=== PATIENT | female | born 1955 | race African-American/Black ===

== ENCOUNTER 2018-07-06 06:53 | Inpatient (IN) | payer MEDICAID ==
[~2018-07-06] VITALS: Ht 167.6 cm; Wt 68.9 kg
[2018-07-06] VITALS (13 sets, daily range): BP systolic 109–185; BP diastolic 71–120
--- NOTE | 2018-07-06 07:28 | Emergency Room Report ---
History of Present Illness General Chief Complaint: Chest Pain Source: Patient Present Illness HPI Patient presents with chest pain and weakness. This been worsening over the last week. She denies taking any medications at this time. She's never had pain like this before or weakness like this. She can barely stand. She denies fevers and chills. There's no productive cough. There's no nausea vomiting or diarrhea. She's not moving her bowels as she's not been eating. She fell recently. She does smoke THC and drinks beer. Other drugs are denied. It's been a long time since she seen her doctor. She doesn't take any medications routinely. She took a Motrin for the chest pain and it didn't help much. Pain is rated 8/10. The patient fell several days ago and has a bruise on the right-hand side of her hip. She was able to weight-bear on this and she states that this is not the reason why she is weak. Cares for others, not feeling stress. No dysuria, rashes. Allergies: Coded Allergies: No Known Allergies (Unverified , 07/06/18) Patient History Past Medical History: see triage record Social History: Reports: alcohol use, drug use - thc; Denies: smoking Social History Narrative with her sister and mother. She cares for her autistic son Last Menstrual Period: na Now: No Reviewed Nursing Documentation: PMH: Agreed; PSxH: Agreed Nursing Documentation-PMH Past Medical History: No Stated History Review of Systems All Other Systems: negative except mentioned in HPI Physical Exam Vital Signs Date Time Temp Pulse Resp B/P (MAP) Pulse Ox O2 Delivery O2 Flow Rate FiO2 07/06/18 06:54 98.4 80 18 154/109 99 Room Air Sp02 EP Interpretation: reviewed, normal General Appearance: no apparent distress, GCS 15, other - slow moving and cold Head: normocephalic Eyes: bilateral eye normal inspection, bilateral eye PERRL ENT: moist mucus membranes Neck: supple, thyroid normal Respiratory: lungs clear, normal breath sounds Cardiovascular #1: regular rate, rhythm Cardiovascular #2: 2+ radial (R) Gastrointestinal: normal inspection, normal bowel sounds, non tender, no mass, non-distended Musculoskeletal: back normal, normal range of motion Neurologic: alert, oriented x3, DTRs symmetric, sensory intact, motor weakness - Diffuse, other - slow speech Psychiatric: depressed affect Skin: normal inspection, warm/dry Procedures Critical Care Time Critical Care Time Total Critical Care Time: 30 min bedside evaluation and treatment excludes procedures (EKG). Reason for critical care: NSTEMI, hyponatremia, renal failure, hypokalemia, hypothyroidism Possible complications: hypotension, hypertension, ID, shock, arrhythmias, metabolic acidosis, end organ damage, respiratory failure. Interventions: aspirin, 3% NS, K, hydrocortisone Course: Patient with weakness found to have NSTEMI. Aspirin given. Critical hyponatremia - 3% NS begun and monitored. Hypokalemia with replacement ordered. Hypothyroidism and hydrocortisone ordered. Discussed findings with family, admitting MD, critical care MD and renal MD. Consultations: nursing staff, EMS, family, admitting MD, critical care MD, renal MD Performed by: Dr. White Tolerated well condition = serious Medical Decision Making Diagnostic Impression: Primary Impression: Chest pain Qualified Codes: R07.9 - Chest pain, unspecified Additional Impressions: NSTEMI (non-ST elevated myocardial infarction) Hyponatremia Hypokalemia Hypothyroid Qualified Codes: E03.9 - Hypothyroidism, unspecified ER Course Patient presents with chest pain, hyperthermia or weakness. Differential is broad including sepsis, acute myocardial infarction, pulmonary embolus, hypothyroidism, electrolyte imbalance, occult infection, Wernicke's encephalopathy amongst others. Evaluation will be with EKG, chest x-ray, and labs. As non-focal, CT may not be indicated. The patient will be treated with gentle hydration and Tylenol. She'll also be given a dose of thiamine. EKG without injury. CXR clear. NSTEMI with + troponin. Hyponatremia critical. Low potassium. Renal failure. Hypothyroidism. + D dimer Clinically, doubt PE based on VS and exam. Not candidate for CTA (and not indicated). 3% NS begun. K replacement ordered. Hydrocortisone for hypothyroidism. Discussed IV thyroid replacement with pharmacy (IV synthroid available). ( Normal TSH suggests secondary cause.) Discussed with admitting MD, Critical Care MD and Renal MD. Labs added per latter. Discussed findings with family. Due to 3% NS, admitted ICU. Improved mentation. Laboratory Tests Test 07/06/18 07:30 07/06/18 09:20 07/06/18 11:15 07/06/18 15:15 White Blood Count 8.6 K/UL (4.8-10.8) Red Blood Count 5.80 M/UL (4.20-5.40) H Hemoglobin 15.3 G/DL (12.0-16.0) Hematocrit 44.6 % (37.0-47.0) Mean Corpuscular Volume 77 FL (80-99) L Mean Corpuscular Hemoglobin 26.3 PG (27.0-31.0) L Mean Corpuscular Hemoglobin Concent 34.2 G/DL (32.0-36.0) Red Cell Distribution Width 11.0 % (11.6-14.8) L Platelet Count 243 K/UL (150-450) Mean Platelet Volume 8.4 FL (6.5-10.1) Neutrophils (%) (Auto) 63.4 % (45.0-75.0) Lymphocytes (%) (Auto) 25.4 % (20.0-45.0) Monocytes (%) (Auto) 6.7 % (1.0-10.0) Eosinophils (%) (Auto) 2.7 % (0.0-3.0) Basophils (%) (Auto) 1.8 % (0.0-2.0) Erythrocyte Sedimentation Rate 14 MM/HR (0-30) Prothrombin Time 11.0 SEC (9.30-11.50) Prothrombin Time INR 1.0 (0.9-1.1) PTT 45 SEC (23-33) H D-Dimer 0.96 mg/L FEU (0.00-0.49) H Sodium Level 108 MMOL/L (136-145) *L 114 MMOL/L (136-145) *L 119 MMOL/L (136-145) *L Potassium Level 2.6 MMOL/L (3.5-5.1) *L 3.2 MMOL/L (3.5-5.1) L 4.0 MMOL/L (3.5-5.1) Chloride Level 71 MMOL/L (98-107) L 78 MMOL/L (98-107) L 81 MMOL/L (98-107) L Carbon Dioxide Level 24 MMOL/L (21-32) 20 MMOL/L (21-32) L 22 MMOL/L (21-32) Anion Gap 13 mmol/L (5-15) 16 mmol/L (5-15) H 15 mmol/L (5-15) Blood Urea Nitrogen 10 mg/dL (7-18) 8 mg/dL (7-18) 9 mg/dL (7-18) Creatinine 1.0 MG/DL (0.55-1.30) 0.7 MG/DL (0.55-1.30) 0.7 MG/DL (0.55-1.30) Estimate Glomerular Filtration Rate > 60 mL/min (>60) > 60 mL/min (>60) > 60 mL/min (>60) Glucose Level 65 MG/DL (74-106) L 52 MG/DL (74-106) L 117 MG/DL (74-106) H Lactic Acid Level 1.30 mmol/L (0.4-2.0) Uric Acid 5.1 MG/DL (2.6-7.2) Calcium Level 9.5 MG/DL (8.5-10.1) 8.9 MG/DL (8.5-10.1) 9.3 MG/DL (8.5-10.1) Magnesium Level 1.7 MG/DL (1.8-2.4) L Total Bilirubin 0.5 MG/DL (0.2-1.0) Aspartate Amino Transferase (AST) 41 U/L (15-37) H Alanine Aminotransferase (ALT) 23 U/L (12-78) Alkaline Phosphatase 75 U/L (46-116) Total Creatine Kinase 738 U/L (26-308) H Troponin I 0.064 ng/mL (0.000-0.056) 0.029 ng/mL (0.000-0.056) Pro-B-Type Natriuretic Peptide 62 pg/mL (0-125) Total Protein 8.0 G/DL (6.4-8.2) Albumin 4.1 G/DL (3.4-5.0) Globulin 3.9 g/dL Albumin/Globulin Ratio 1.1 (1.0-2.7) Lipase 92 U/L (73-393) Thyroid Stimulating Hormone (TSH) 0.567 uiU/mL (0.358-3.740) Free Thyroxine 0.51 NG/DL (0.76-1.46) L Free Triiodothyronine 1.0 pg/mL (2.3-4.2) L Serum Alcohol < 3 mg/dL Urine Color Pale yellow Urine Appearance Clear Urine pH 6.5 (4.5-8.0) Urine Specific [place] 1.005 (1.005-1.035) Urine Protein 1+ (NEGATIVE) H Urine Glucose (UA) Negative (NEGATIVE) Urine Ketones 3+ (NEGATIVE) H Urine Blood Negative (NEGATIVE) Urine Nitrite Negative (NEGATIVE) Urine Bilirubin Negative (NEGATIVE) Urine Urobilinogen Normal MG/DL (0.0-1.0) Urine Leukocyte Esterase Negative (NEGATIVE) Urine RBC 0 /HPF (0 - 2) Urine WBC 0 /HPF (0 - 2) Urine Squamous Epithelial Cells Occasional /LPF Urine Bacteria Occasional /HPF (NONE) Urine Osmolality 141 mOsm/kg (429-449) L Urine Random Sodium 29 mmol/L (20-110) Osmolality 225 mOsm/kg (297-317) L Urine Opiates Screen Negative (NEGATIVE) Urine Barbiturates Screen Negative (NEGATIVE) Phencyclidine (PCP) Screen Negative (NEGATIVE) Urine Amphetamines Screen Negative (NEGATIVE) Urine Benzodiazepines Screen Negative (NEGATIVE) Urine Cocaine Screen Negative (NEGATIVE) Urine Marijuana (THC) Screen Negative (NEGATIVE) Test 07/06/18 18:49 Sodium Level Pending Potassium Level Pending Chloride Level Pending Carbon Dioxide Level Pending Blood Urea Nitrogen Pending Creatinine Pending Estimate Glomerular Filtration Rate Pending Glucose Level Pending Calcium Level Pending Troponin I Pending EKG Diagnostic Results Rate: normal Rhythm: NSR ST Segments: no acute changes - First-degree AV block and ST inversions laterally Rhythm Strip Diag. Results EP Interpretation: yes Rhythm: NSR, no PVC's, no ectopy Chest X-Ray Diagnostic Results Chest X-Ray Diagnostic Results : Chest X-Ray Ordered: Yes # of Views/Limited/Complete: 1 View Indication: Other EP Interpretation: Yes Interpretation: no consolidation, no effusion, no pneumothorax Impression: No acute disease Electronically Signed by: Electronically signed by Shahab White MD Last Vital Signs Date Time Temp Pulse Resp B/P (MAP) Pulse Ox O2 Delivery O2 Flow Rate FiO2 07/06/18 18:00 85 13 151/93 (112) 100 07/06/18 16:00 98.0 07/06/18 16:00 Room Air Status: improved Disposition: ADMITTED INPATIENT Condition: Serious Shahab White MD Jul 06, 2018 07:28
--- NOTE | 2018-07-06 08:14 | Diagnostic Imaging Report ---
EXAM: XR Chest, 1 View CLINICAL HISTORY: Chest pain TECHNIQUE: Frontal view of the chest. COMPARISON: No relevant prior studies available. FINDINGS: Lungs: Unremarkable. No consolidation. Pleural space: Unremarkable. No pneumothorax. Heart: Unremarkable. No cardiomegaly. Mediastinum: Unremarkable. Bones/joints: Unremarkable. IMPRESSION: No acute cardiopulmonary process.
[2018-07-06 08:27] LABS: BASOPHILS % (AUTO) 1.8 % (0.0-2.0); EOSINOPHILS % (AUTO) 2.7 % (0.0-3.0); HEMATOCRIT 44.6 % (37.0-47.0); HEMOGLOBIN 15.3 G/DL (12.0-16.0); LYMPHOCYTES % (AUTO) 25.4 % (20.0-45.0); MEAN CORPUSCULAR VOLUME 77 FL (80-99); MONOCYTES % (AUTO) 6.7 % (1.0-10.0); NEUTROPHILS % (AUTO) 63.4 % (45.0-75.0); PLATELET COUNT 243 K/UL (150-450); WHITE BLOOD COUNT 8.6 K/UL (4.8-10.8)
[2018-07-06 08:31] LABS: ALANINE AMINOTRANSFERASE 23 U/L (12-78); ALBUMIN 4.1 G/DL (3.4-5.0); ALBUMIN/GLOBULIN RATIO 1.1 (1.0-2.7); ALKALINE PHOSPHATASE 75 U/L (46-116); ANION GAP 13 mmol/L (5-15); ASPARTATE AMINO TRANSFERASE 41 U/L (15-37); BILIRUBIN,TOTAL 0.5 MG/DL (0.2-1.0); BLOOD UREA NITROGEN 10 mg/dL (7-18); CALCIUM 9.5 MG/DL (8.5-10.1); CARBON DIOXIDE 24 MMOL/L (21-32); CHLORIDE 71 MMOL/L (98-107); CREATINE KINASE 738 U/L (26-308)
[2018-07-06 09:03] LABS: POTASSIUM 2.6 MMOL/L (3.5-5.1); SODIUM 108 MMOL/L (136-145)
[2018-07-06] MEDS ORDERED: NaCl 3% 500ml 250 ML IV ONE (09:15)
[2018-07-06] MEDS ORDERED: Hydrocortisone 100mg Inj IV ONE (09:30)
[2018-07-06 09:39] LABS: APPEARANCE,URINE CLEAR; BILIRUBIN, URINE NEGATIVE (NEGATIVE); COLOR,URINE PALE YELLOW; GLUCOSE, URINE (UA) NEGATIVE (NEGATIVE); KETONES,URINE 3+ (NEGATIVE); LEUKOCYTE ESTERASE ,URINE NEGATIVE (NEGATIVE); NITRITE,URINE NEGATIVE (NEGATIVE); PH,URINE 6.5 (4.5-8.0); PROTEIN,URINE 1+ (NEGATIVE); UROBILINOGEN,URINE NORMAL MG/DL (0.0-1.0)
[2018-07-06 12:02] LABS: ANION GAP 16 mmol/L (5-15); BLOOD UREA NITROGEN 8 mg/dL (7-18); CALCIUM 8.9 MG/DL (8.5-10.1); CARBON DIOXIDE 20 MMOL/L (21-32); CHLORIDE 78 MMOL/L (98-107); CREATININE 0.7 MG/DL (0.55-1.30); POTASSIUM 3.2 MMOL/L (3.5-5.1)
--- NOTE | 2018-07-06 12:05 | Cardiac Electrophysiology PN ---
Subjective Subjective [id number] Objective Last 24 Hour Vital Signs Date Time Temp Pulse Resp B/P (MAP) Pulse Ox O2 Delivery O2 Flow Rate FiO2 07/06/18 10:50 98.4 70 18 154/86 99 Room Air 07/06/18 10:00 98.4 70 18 154/86 99 Room Air 07/06/18 07:37 98.4 86 18 154/109 99 Room Air 07/06/18 06:54 98.4 80 18 154/109 99 Room Air Laboratory Tests Test 07/06/18 07:30 07/06/18 09:20 07/06/18 11:15 White Blood Count 8.6 K/UL (4.8-10.8) Red Blood Count 5.80 M/UL (4.20-5.40) H Hemoglobin 15.3 G/DL (12.0-16.0) Hematocrit 44.6 % (37.0-47.0) Mean Corpuscular Volume 77 FL (80-99) L Mean Corpuscular Hemoglobin 26.3 PG (27.0-31.0) L Mean Corpuscular Hemoglobin Concent 34.2 G/DL (32.0-36.0) Red Cell Distribution Width 11.0 % (11.6-14.8) L Platelet Count 243 K/UL (150-450) Mean Platelet Volume 8.4 FL (6.5-10.1) Neutrophils (%) (Auto) 63.4 % (45.0-75.0) Lymphocytes (%) (Auto) 25.4 % (20.0-45.0) Monocytes (%) (Auto) 6.7 % (1.0-10.0) Eosinophils (%) (Auto) 2.7 % (0.0-3.0) Basophils (%) (Auto) 1.8 % (0.0-2.0) Erythrocyte Sedimentation Rate 14 MM/HR (0-30) Prothrombin Time 11.0 SEC (9.30-11.50) Prothromb Time International Ratio 1.0 (0.9-1.1) Activated Partial Thromboplast Time 45 SEC (23-33) H D-Dimer 0.96 mg/L FEU (0.00-0.49) H Sodium Level 108 MMOL/L (136-145) *L Pending Potassium Level 2.6 MMOL/L (3.5-5.1) *L Pending Chloride Level 71 MMOL/L (98-107) L Pending Carbon Dioxide Level 24 MMOL/L (21-32) Pending Anion Gap 13 mmol/L (5-15) Blood Urea Nitrogen 10 mg/dL (7-18) Pending Creatinine 1.0 MG/DL (0.55-1.30) Pending Estimat Glomerular Filtration Rate > 60 mL/min (>60) Pending Glucose Level 65 MG/DL (74-106) L Pending Lactic Acid Level 1.30 mmol/L (0.4-2.0) Uric Acid 5.1 MG/DL (2.6-7.2) Calcium Level 9.5 MG/DL (8.5-10.1) Pending Magnesium Level 1.7 MG/DL (1.8-2.4) L Total Bilirubin 0.5 MG/DL (0.2-1.0) Aspartate Amino Transf (AST/SGOT) 41 U/L (15-37) H Alanine Aminotransferase (ALT/SGPT) 23 U/L (12-78) Alkaline Phosphatase 75 U/L (46-116) Total Creatine Kinase 738 U/L (26-308) H Troponin I 0.064 ng/mL (0.000-0.056) Pro-B-Type Natriuretic Peptide 62 pg/mL (0-125) Total Protein 8.0 G/DL (6.4-8.2) Albumin 4.1 G/DL (3.4-5.0) Globulin 3.9 g/dL Albumin/Globulin Ratio 1.1 (1.0-2.7) Lipase 92 U/L (73-393) Thyroid Stimulating Hormone (TSH) 0.567 uiU/mL (0.358-3.740) Free Thyroxine 0.51 NG/DL (0.76-1.46) L Free Triiodothyronine 1.0 pg/mL (2.3-4.2) L Serum Alcohol < 3 mg/dL Urine Color Pale yellow Urine Appearance Clear Urine pH 6.5 (4.5-8.0) Urine Specific [place] 1.005 (1.005-1.035) Urine Protein 1+ (NEGATIVE) H Urine Glucose (UA) Negative (NEGATIVE) Urine Ketones 3+ (NEGATIVE) H Urine Blood Negative (NEGATIVE) Urine Nitrite Negative (NEGATIVE) Urine Bilirubin Negative (NEGATIVE) Urine Urobilinogen Normal MG/DL (0.0-1.0) Urine Leukocyte Esterase Negative (NEGATIVE) Urine RBC 0 /HPF (0 - 2) Urine WBC 0 /HPF (0 - 2) Urine Squamous Epithelial Cells Occasional /LPF Urine Bacteria Occasional /HPF (NONE) Urine Osmolality 141 mOsm/kg (429-449) L Urine Random Sodium 29 mmol/L (20-110) Osmolality 225 mOsm/kg (297-317) L Urine Opiates Screen Negative (NEGATIVE) Urine Barbiturates Screen Negative (NEGATIVE) Phencyclidine (PCP) Screen Negative (NEGATIVE) Urine Amphetamines Screen Negative (NEGATIVE) Urine Benzodiazepines Screen Negative (NEGATIVE) Urine Cocaine Screen Negative (NEGATIVE) Urine Marijuana (THC) Screen Negative (NEGATIVE) Geovanni Navas MD Jul 06, 2018 12:05
[2018-07-06 12:08] LABS: SODIUM 114 MMOL/L (136-145)
--- NOTE | 2018-07-06 12:40 | Consultation ---
Consult Note Consult Note Patient presents with chest pain and weakness. This been worsening over the last week. She denies taking any medications at this time. She's never had pain like this before or weakness like this. She can barely stand. She denies fevers and chills. There's no productive cough. There's no nausea vomiting or diarrhea. She's not moving her bowels as she's not been eating. She fell recently. She does smoke THC and drinks beer. Other drugs are denied. It's been a long time since she seen her doctor. She doesn't take any medications routinely. She took a Motrin for the chest pain and it didn't help much. Pain is rated 8/10. The patient fell several days ago and has a bruise on the right-hand side of her hip. She is able to weight-bear on this and she states that this is not the reason why she is weak. Allergies: Coded Allergies: No Known Allergies (Unverified , 07/06/18) interviewed examined data reviewed Assessment/Plan Severe Hyponatremia : ? Depletional ? SIADH HypoKalemia Low MCV elevated troponin h/o HypoThyroidism higgins 3% Saline K IV Mag IV Nitro ,asa, betablocker per orders Hesham Leonard MD Jul 06, 2018 12:40
[2018-07-06] MEDS ORDERED: NaCl 3% 500ml 500 ML IV ONE (13:30)
--- NOTE | 2018-07-06 13:30 | History and Physical ---
History of Present Illness General Date patient seen: Jul 06, 2018 Time patient seen: 12:00 Reason for Hospitalization: Chest Pain Present Illness HPI 62 year old woman with no known medical history, does not take any medications nor follow up with physician. Denies smoking cigarettes by uses cannabis and drinks alcohol. She presented to the ED with general weakness, malaise, fall. No chest pain, palpitations, syncope. In ED she was noted to be severely hyponatremic with sodium 105 along with hypokalemia of 2.6. She was started on hypertonic saline and referred for admission. Allergies: Coded Allergies: No Known Allergies (Unverified , 07/06/18) Patient History Limited by: medical condition History Provided By: Patient, EMS Healthcare decision maker Resuscitation status Advanced Directive on File Family History Family History: Patient reports no known family medical history. Social History Social History: (1) Cannabis abuse Review of Systems Constitutional: Denies: chills, fever Eye: Denies: eye pain, blurred vision ENT: Denies: ear pain, ear discharge Respiratory: Denies: cough, shortness of breath Cardiovascular: Denies: chest pain, palpitations Gastrointestinal: Denies: abdominal pain, constipation Genitourinary: Denies: discharge, dysuria Musculoskeletal: Denies: back pain, joint pain Skin: Denies: rash, change in hair/nails Psychiatric: Denies: anxiety, depressed feelings Neurological: Denies: headache, numbness, paresthesia, seizure Endocrine: Denies: excessive sweating, flushing Hematologic/Lymphatic: Denies: anemia, blood clots Physical Exam General Appearance: no apparent distress, alert HEENT: normocephalic, atraumatic, anicteric Neck: normal alignment, supple, normal inspection Respiratory/Chest: lungs clear, normal breath sounds, no respiratory distress Cardiovascular/Chest: normal peripheral pulses, normal rate, regular rhythm, no gallop/murmur Abdomen: normal bowel sounds, non tender, soft Extremities: normal range of motion, non-tender Skin Exam: normal pigmentation, warm/dry Neurologic: senior cognos developer II-XII grossly normal, no motor/sensory deficits Last 24 Hour Vital Signs Date Time Temp Pulse Resp B/P (MAP) Pulse Ox O2 Delivery O2 Flow Rate FiO2 07/06/18 10:50 98.4 70 18 154/86 99 Room Air 07/06/18 10:00 98.4 70 18 154/86 99 Room Air 07/06/18 07:37 98.4 86 18 154/109 99 Room Air 07/06/18 06:54 98.4 80 18 154/109 99 Room Air Laboratory Tests Test 07/06/18 07:30 07/06/18 09:20 07/06/18 11:15 White Blood Count 8.6 K/UL (4.8-10.8) Red Blood Count 5.80 M/UL (4.20-5.40) H Hemoglobin 15.3 G/DL (12.0-16.0) Hematocrit 44.6 % (37.0-47.0) Mean Corpuscular Volume 77 FL (80-99) L Mean Corpuscular Hemoglobin 26.3 PG (27.0-31.0) L Mean Corpuscular Hemoglobin Concent 34.2 G/DL (32.0-36.0) Red Cell Distribution Width 11.0 % (11.6-14.8) L Platelet Count 243 K/UL (150-450) Mean Platelet Volume 8.4 FL (6.5-10.1) Neutrophils (%) (Auto) 63.4 % (45.0-75.0) Lymphocytes (%) (Auto) 25.4 % (20.0-45.0) Monocytes (%) (Auto) 6.7 % (1.0-10.0) Eosinophils (%) (Auto) 2.7 % (0.0-3.0) Basophils (%) (Auto) 1.8 % (0.0-2.0) Erythrocyte Sedimentation Rate 14 MM/HR (0-30) Prothrombin Time 11.0 SEC (9.30-11.50) Prothromb Time International Ratio 1.0 (0.9-1.1) Activated Partial Thromboplast Time 45 SEC (23-33) H D-Dimer 0.96 mg/L FEU (0.00-0.49) H Sodium Level 108 MMOL/L (136-145) *L 114 MMOL/L (136-145) *L Potassium Level 2.6 MMOL/L (3.5-5.1) *L 3.2 MMOL/L (3.5-5.1) L Chloride Level 71 MMOL/L (98-107) L 78 MMOL/L (98-107) L Carbon Dioxide Level 24 MMOL/L (21-32) 20 MMOL/L (21-32) L Anion Gap 13 mmol/L (5-15) 16 mmol/L (5-15) H Blood Urea Nitrogen 10 mg/dL (7-18) 8 mg/dL (7-18) Creatinine 1.0 MG/DL (0.55-1.30) 0.7 MG/DL (0.55-1.30) Estimat Glomerular Filtration Rate > 60 mL/min (>60) > 60 mL/min (>60) Glucose Level 65 MG/DL (74-106) L 52 MG/DL (74-106) L Lactic Acid Level 1.30 mmol/L (0.4-2.0) Uric Acid 5.1 MG/DL (2.6-7.2) Calcium Level 9.5 MG/DL (8.5-10.1) 8.9 MG/DL (8.5-10.1) Magnesium Level 1.7 MG/DL (1.8-2.4) L Total Bilirubin 0.5 MG/DL (0.2-1.0) Aspartate Amino Transf (AST/SGOT) 41 U/L (15-37) H Alanine Aminotransferase (ALT/SGPT) 23 U/L (12-78) Alkaline Phosphatase 75 U/L (46-116) Total Creatine Kinase 738 U/L (26-308) H Troponin I 0.064 ng/mL (0.000-0.056) Pending Pro-B-Type Natriuretic Peptide 62 pg/mL (0-125) Total Protein 8.0 G/DL (6.4-8.2) Albumin 4.1 G/DL (3.4-5.0) Globulin 3.9 g/dL Albumin/Globulin Ratio 1.1 (1.0-2.7) Lipase 92 U/L (73-393) Thyroid Stimulating Hormone (TSH) 0.567 uiU/mL (0.358-3.740) Free Thyroxine 0.51 NG/DL (0.76-1.46) L Free Triiodothyronine 1.0 pg/mL (2.3-4.2) L Serum Alcohol < 3 mg/dL Urine Color Pale yellow Urine Appearance Clear Urine pH 6.5 (4.5-8.0) Urine Specific [place] 1.005 (1.005-1.035) Urine Protein 1+ (NEGATIVE) H Urine Glucose (UA) Negative (NEGATIVE) Urine Ketones 3+ (NEGATIVE) H Urine Blood Negative (NEGATIVE) Urine Nitrite Negative (NEGATIVE) Urine Bilirubin Negative (NEGATIVE) Urine Urobilinogen Normal MG/DL (0.0-1.0) Urine Leukocyte Esterase Negative (NEGATIVE) Urine RBC 0 /HPF (0 - 2) Urine WBC 0 /HPF (0 - 2) Urine Squamous Epithelial Cells Occasional /LPF Urine Bacteria Occasional /HPF (NONE) Urine Osmolality 141 mOsm/kg (429-449) L Urine Random Sodium 29 mmol/L (20-110) Osmolality 225 mOsm/kg (297-317) L Urine Opiates Screen Negative (NEGATIVE) Urine Barbiturates Screen Negative (NEGATIVE) Phencyclidine (PCP) Screen Negative (NEGATIVE) Urine Amphetamines Screen Negative (NEGATIVE) Urine Benzodiazepines Screen Negative (NEGATIVE) Urine Cocaine Screen Negative (NEGATIVE) Urine Marijuana (THC) Screen Negative (NEGATIVE) Height (Feet): 5 Height (Inches): 8.00 Weight (Pounds): 150 Medications Current Medications Medications (Trade) Dose Ordered Sig/[place] Route PRN Reason Start Time Stop Time Status Last Admin Dose Admin Aspirin (ASA) 162 mg DAILY ORAL 07/07/18 09:00 08/06/18 08:59 Dextrose (Dextrose 50%) 25 ml Q30M PRN IV Hypoglycemia 07/06/18 10:00 08/05/18 09:59 Dextrose (Dextrose 50%) 50 ml Q30M PRN IV Hypoglycemia 07/06/18 10:00 08/05/18 09:59 Famotidine (Pepcid) 20 mg BID ORAL 07/06/18 18:00 08/05/18 17:59 Magnesium Sulfate 100 ml @ 100 mls/hr Q1H IVPB 07/06/18 14:00 07/06/18 17:59 Metoprolol Tartrate (Lopressor) 25 mg Q12HR ORAL 07/06/18 21:00 08/05/18 20:59 Nitroglycerin (Ntg) 1 patch DAILY TDERMAL 07/06/18 13:00 08/05/18 12:59 Potassium Chloride 100 ml @ 100 mls/hr Q1HR IVPB 07/06/18 14:00 07/06/18 19:59 Sodium Chloride 250 ml @ 30 mls/hr ONCE ONCE IV 07/06/18 09:15 07/06/18 17:34 07/06/18 09:52 Sodium Chloride 500 ml @ 30 mls/hr ONCE ONCE IV 07/06/18 13:30 07/07/18 06:09 Assessment/Plan Assessment/Plan Severe life threatening hyponatremia of unclear etiology, admit to ICU for hypertonic saline infusion and q4h BMP. Seizure precautions, fall precautions.Spoke with Dr. Leonard who will help manage electrolytes. Hypokalemia, replaced with IV and oral KCl, continue to monitor potassium level. Elevated troponin without EKG changes, doubt ACS, suspect demand ischemia. Spoke with Cardiology who evaluated the patient. Continue ASA and metoprolol. History of cannabis and alcohol use, counseling given on the adverse effects of substance abuse. Abnormal T4 with normal TSH, will not supplemental with levothyroxine for now, continue to monitor for bradycardia, hypothermia etc Full Code VTE PPx heparin SC Patient will require a hospitalization crossing 2 midnights given the severe life threatening electrolyte abnormalities and the need for close monitoring of blood work multiple times per day. Terrance Rothman MD Jul 06, 2018 13:30
[2018-07-06] MEDS: Nitroglycerin Patch 0.4mg TDERMAL SCH (13:53)
[2018-07-06 15:57] LABS: ANION GAP 15 mmol/L (5-15); BLOOD UREA NITROGEN 9 mg/dL (7-18); CALCIUM 9.3 MG/DL (8.5-10.1); CARBON DIOXIDE 22 MMOL/L (21-32); CHLORIDE 81 MMOL/L (98-107); CREATININE 0.7 MG/DL (0.55-1.30)
[2018-07-06 16:16] LABS: SODIUM 119 MMOL/L (136-145)
--- NOTE | 2018-07-06 18:07 | Pulmonolgy Critical Care Note ---
Critical Care - Asmt/Plan Assessment/Plan: PULMONARY CRITICAL CARE HPI Patient presents with chest pain and weakness, episode syncope/fall, noted to have severe hyponatremia, hypothyroidism. Weakness has been worsening over the last week. She denies taking any medications at this time. She's never had pain like this before or weakness like this. She can barely stand. She denies fevers and chills. There's no productive cough. There's no nausea vomiting or diarrhea. She's not moving her bowels as she's not been eating. She fell recently. She does smoke THC and drinks beer. Other drugs are denied. It's been a long time since she seen her doctor. She doesn't take any medications routinely. She took a Motrin for the chest pain and it didn't help much. Pain is rated 8/10. The patient fell several days ago and has a bruise on the right-hand side of her hip. She is able to weight-bear on this and she states that this is not the reason why she is weak. Allergies: Coded Allergies: No Known Allergies (Unverified , 07/06/18) Patient History Past Medical History: see triage record Social History: Reports: smoking, alcohol use, drug use - thc Social History Narrative with her sisters Last Menstrual Period: na Now: No Reviewed Nursing Documentation: PMH: Agreed; PSxH: Agreed Nursing Documentation-PM Past Medical History: No Stated History Review of Systems All Other Systems: negative except mentioned in HPI Physical Exam Vital Signs noted Date Time Temp Pulse Resp B/P (MAP) Pulse Ox O2 Delivery O2 Flow Rate FiO2 07/06/18 06:54 98.4 80 18 154/109 99 Room Air Sp02 EP Interpretation: reviewed, normal General Appearance: no apparent distress, GCS 15, other - slow moving and cold Head: normocephalic Eyes: bilateral eye normal inspection, bilateral eye PERRL ENT: moist mucus membranes Neck: supple, thyroid normal Respiratory: lungs clear, normal breath sounds Cardiovascular #1: regular rate, rhythm Cardiovascular #2: 2+ radial (R) Gastrointestinal: normal inspection, normal bowel sounds, non tender, no mass, non-distended Musculoskeletal: back normal, normal range of motion Neurologic: alert, oriented x3, DTRs symmetric, sensory intact, motor weakness - Diffuse Psychiatric: depressed affect Skin: normal inspection, warm/dry Medical Decision Making Diagnostic Impression: Primary Impression: Chest pain, elevated troponin NSTEMII (non-ST elevated myocardial infarction) Hyponatremia Hypokalemia Hypothyroid Plan: Continue current management O2 PRN PPX IV fluids per Renal EKG Diagnostic Results Rate: normal Rhythm: NSR ST Segments: no acute changes - First-degree AV block and ST inversions laterally Rhythm Strip Diag. Results EP Interpretation: yes Rhythm: NSR, no PVC's, no ectopy Chest X-Ray Diagnostic Results Chest X-Ray Diagnostic Results : Chest X-Ray Ordered: Yes # of Views/Limited/Complete: 1 View Indication: Other EP Interpretation: Yes Interpretation: no consolidation, no effusion, no pneumothorax Impression: No acute disease Critical Care - Objective Last 24 Hour Vital Signs Date Time Temp Pulse Resp B/P (MAP) Pulse Ox O2 Delivery O2 Flow Rate FiO2 07/06/18 18:00 85 13 151/93 (112) 100 07/06/18 17:00 85 13 116/71 (86) 98 07/06/18 16:00 98.0 88 12 149/94 (112) 99 07/06/18 16:00 92 07/06/18 16:00 Room Air 07/06/18 15:00 82 14 109/87 (94) 97 07/06/18 14:15 Room Air 07/06/18 14:15 Room Air 07/06/18 14:00 76 12 150/104 (119) 99 07/06/18 13:53 166/102 07/06/18 13:00 97.6 71 11 131/74 (93) 97 07/06/18 10:50 98.4 70 18 154/86 99 Room Air 07/06/18 10:00 98.4 70 18 154/86 99 Room Air 07/06/18 07:37 98.4 86 18 154/109 99 Room Air 07/06/18 06:54 98.4 80 18 154/109 99 Room Air Critical Care - Subjective ROS Limited/Unobtainable: No Condition: stable EKG Rhythm: Sinus Rhythm Shahab Ling MD Jul 06, 2018 18:07
[2018-07-06 19:38] LABS: ANION GAP 11 mmol/L (5-15); BLOOD UREA NITROGEN 9 mg/dL (7-18); CALCIUM 9.7 MG/DL (8.5-10.1); CARBON DIOXIDE 21 MMOL/L (21-32); CHLORIDE 86 MMOL/L (98-107); CREATININE 0.8 MG/DL (0.55-1.30); POTASSIUM 4.1 MMOL/L (3.5-5.1)
[2018-07-06 19:52] LABS: SODIUM 118 MMOL/L (136-145)
[2018-07-06] MEDS: Metoprolol 25mg tab ORAL SCH (20:16)
[2018-07-06] MEDS: Heparin 5000 units/ml inj SUBQ SCH (20:17)
--- NOTE | 2018-07-06 22:00 | Consultation ---
DATE OF CONSULTATION: 07/06/2018 CARDIOLOGY CONSULTATION CONSULTING PHYSICIAN: Geovanni Navas M.D. REFERRING PHYSICIAN: Joann Bains M.D. REASON FOR CONSULTATION: Elevated troponin, abnormal electrocardiogram. HISTORY OF PRESENT ILLNESS: The patient is a 62-year-old lady, who presents to the emergency room complaining of generalized weakness, fever, and chest pain. The patient's blood pressure in the ER was 154/109, pulse of 80. The patient stated she had the feeling like that for the last week. Denies any prior medical history and does not take any medication at home. She could barely stand. The patient took Motrin for chest pain. The patient was found to have severe hyponatremia with sodium of 108 as well as severe hypokalemia with potassium of 2.6. Her troponin was mildly elevated at 0.064 also. REVIEW OF SYSTEMS: Negative other than what was mentioned in history of present illness. PAST MEDICAL HISTORY: Negative. FAMILY HISTORY: Noncontributory. SOCIAL HISTORY: Urine toxicology screen is negative. Denies smoking or drinking alcohol. PHYSICAL EXAMINATION: VITAL SIGNS: Blood pressure is 154/86, pulse is 80, respirations 18, and she is afebrile. HEAD AND NECK: Showed no JVD. LUNGS: Clear. CARDIOVASCULAR: Shows regular S1 and S2 with no gallop or murmur. ABDOMEN: Soft. EXTREMITIES: No pitting edema. DIAGNOSTIC DATA: EKG shows sinus rhythm, prolonged QT, first-degree AV block, and lateral T-wave inversion. LABORATORY DATA: White count of 8.6, hemoglobin 15.2, hematocrit 44.6, and platelet count of 243,000. Sodium 108, potassium 2.6, BUN of 10, creatinine 1, and glucose of 65. INR is 1. D-dimer is 0.96. Urine-tox is negative. ASSESSMENT AND PLAN: 1. [id number] myocardial infarction, abnormal EKG, elevated troponin, and chest pain. The patient currently is chest pain-free, however, with abnormal EKG, it could be due to profound hypokalemia, potassium 2.6. The patient also has severe hyponatremia. We will start the patient on aspirin, beta-saeid, and anticoagulation until we get further information. Repeat troponin and EKG as well as echocardiogram. 2. Severe hypokalemia. Potassium was replaced. Laboratories are repeated and pending. 3. Hypothyroidism. 4. Severe hyponatremia. The patient is on 3% saline. Thank you very much, Dr. Bains, for allowing me to participate in the care of this patient. Please do not hesitate to contact me for any questions regarding my evaluation. Geovanni Navas M.D. DR: Taz JOB#: [id number] CC:
[2018-07-07] VITALS (23 sets, daily range): BP systolic 121–163; BP diastolic 67–105
[2018-07-07 00:01] LABS: ANION GAP 12 mmol/L (5-15); BLOOD UREA NITROGEN 8 mg/dL (7-18); CALCIUM 9.3 MG/DL (8.5-10.1); CARBON DIOXIDE 21 MMOL/L (21-32); CHLORIDE 88 MMOL/L (98-107); CREATININE 0.8 MG/DL (0.55-1.30); POTASSIUM 4.3 MMOL/L (3.5-5.1); SODIUM 121 MMOL/L (136-145)
[2018-07-07 05:10] LABS: BASOPHILS % (AUTO) 0.4 % (0.0-2.0); EOSINOPHILS % (AUTO) 0.1 % (0.0-3.0); HEMATOCRIT 40.4 % (37.0-47.0); HEMOGLOBIN 13.9 G/DL (12.0-16.0); LYMPHOCYTES % (AUTO) 14.8 % (20.0-45.0); MEAN CORPUSCULAR VOLUME 78 FL (80-99); MONOCYTES % (AUTO) 3.6 % (1.0-10.0); NEUTROPHILS % (AUTO) 81.1 % (45.0-75.0); PLATELET COUNT 256 K/UL (150-450); RED BLOOD COUNT 5.21 M/UL (4.20-5.40); RED CELL DISTRIBUTION WIDTH 11.4 % (11.6-14.8); WHITE BLOOD COUNT 9.1 K/UL (4.8-10.8)
[2018-07-07 05:42] LABS: CREATINE KINASE 724 U/L (26-308); FERRITIN 544 NG/ML (8-388); GAMMA GLUTAMYL TRANSPEPTIDASE 42 U/L (5-85); PHOSPHORUS 2.5 MG/DL (2.5-4.9)
[2018-07-07 05:44] LABS: % IRON SATURATION 42 % (15-50); IRON 114 ug/dL (50-175); TOTAL IRON BINDING CAPACITY 273 ug/dL (250-450)
[2018-07-07 06:35] LABS: ALANINE AMINOTRANSFERASE 27 U/L (12-78); ALBUMIN 3.9 G/DL (3.4-5.0); ALKALINE PHOSPHATASE 78 U/L (46-116); ANION GAP 13 mmol/L (5-15); ASPARTATE AMINO TRANSFERASE 45 U/L (15-37); BILIRUBIN,TOTAL 0.4 MG/DL (0.2-1.0); BLOOD UREA NITROGEN 8 mg/dL (7-18); CALCIUM 9.5 MG/DL (8.5-10.1); CARBON DIOXIDE 20 MMOL/L (21-32); CHLORIDE 88 MMOL/L (98-107); CHOLESTEROL 274 MG/DL (< 200); CREATININE 0.9 MG/DL (0.55-1.30); HDL CHOLESTEROL 44 MG/DL (40-60); POTASSIUM 4.1 MMOL/L (3.5-5.1); SODIUM 121 MMOL/L (136-145); TRIGLYCERIDES 85 MG/DL (30-150)
[2018-07-07 07:40] LABS: ANION GAP 14 mmol/L (5-15); BLOOD UREA NITROGEN 7 mg/dL (7-18); CALCIUM 9.3 MG/DL (8.5-10.1); CARBON DIOXIDE 18 MMOL/L (21-32); CHLORIDE 88 MMOL/L (98-107); CREATININE 0.8 MG/DL (0.55-1.30)
[2018-07-07 07:42] LABS: SODIUM 119 MMOL/L (136-145)
[2018-07-07] MEDS: Aspirin Baby 81mg ORAL SCH (08:45)
[2018-07-07] MEDS: Nitroglycerin Patch 0.4mg TDERMAL SCH (08:45)
[2018-07-07] MEDS: Metoprolol 25mg tab ORAL SCH (08:45)
[2018-07-07] MEDS: Heparin 5000 units/ml inj SUBQ SCH ×2 (08:46→21:27)
[2018-07-07] MEDS ORDERED: NS 275ml ONE (10:48)
[2018-07-07] MEDS ORDERED: Tubing IV Secondary IV ONE (10:48)
[2018-07-07 11:58] LABS: ANION GAP 10 mmol/L (5-15); BLOOD UREA NITROGEN 7 mg/dL (7-18); CALCIUM 9.2 MG/DL (8.5-10.1); CARBON DIOXIDE 22 MMOL/L (21-32); CHLORIDE 88 MMOL/L (98-107); CREATININE 0.8 MG/DL (0.55-1.30); POTASSIUM 3.8 MMOL/L (3.5-5.1); SODIUM 120 MMOL/L (136-145)
[2018-07-07] MEDS ORDERED: Lisinopril 10mg tab ORAL SCH (12:45)
[2018-07-07] MEDS ORDERED: NaCl 3% 500ml 500 ML IV ONE (13:30)
--- NOTE | 2018-07-07 13:42 | Nephrology Progress Note ---
Assessment/Plan Problem List: (1) Hyponatremia (2) Hypothyroid (3) NSTEMI (non-ST elevated myocardial infarction) (4) Hypokalemia Assessment Severe Hyponatremia : ? Depletional ? SIADH HypoKalemia Low MCV elevated troponin h/o HypoThyroidism Plan higgins 3% Saline K IV Mag IV Nitro ,asa, betablocker per orders Subjective ROS Limited/Unobtainable: No Constitutional: Reports: other - stronger Objective Objective Last 24 Hour Vital Signs Date Time Temp Pulse Resp B/P (MAP) Pulse Ox O2 Delivery O2 Flow Rate FiO2 07/07/18 12:00 Room Air 07/07/18 12:00 74 16 151/93 (112) 99 07/07/18 11:00 75 16 145/105 (118) 99 07/07/18 10:00 73 15 162/86 (111) 100 07/07/18 09:23 83 07/07/18 09:00 93 23 148/104 (119) 100 07/07/18 08:45 177/103 07/07/18 08:45 88 177/103 07/07/18 08:00 Room Air 07/07/18 08:00 97.9 95 18 162/102 (122) 100 07/07/18 07:00 88 14 148/88 (108) 100 07/07/18 06:00 91 12 152/100 (117) 100 07/07/18 05:00 88 12 143/91 (108) 100 07/07/18 04:00 Room Air 07/07/18 04:00 98.8 92 16 144/97 (113) 100 07/07/18 04:00 95 07/07/18 03:00 95 16 163/100 (121) 100 07/07/18 02:00 89 13 128/83 (98) 99 07/07/18 01:00 88 13 143/89 (107) 99 07/07/18 00:00 99.1 90 14 149/96 (113) 100 07/07/18 00:00 Room Air 07/06/18 23:00 91 18 140/97 (111) 99 07/06/18 22:00 88 18 172/108 (129) 100 07/06/18 21:00 107 18 169/120 (136) 100 07/06/18 20:16 105 175/109 07/06/18 20:00 105 07/06/18 20:00 98.6 110 12 185/118 (140) 100 07/06/18 20:00 Room Air 07/06/18 19:20 Room Air 07/06/18 19:00 105 15 175/109 (131) 99 07/06/18 18:00 85 13 151/93 (112) 100 07/06/18 17:00 85 13 116/71 (86) 98 07/06/18 16:00 98.0 88 12 149/94 (112) 99 07/06/18 16:00 92 07/06/18 16:00 Room Air 07/06/18 15:00 82 14 109/87 (94) 97 07/06/18 14:15 Room Air 07/06/18 14:15 Room Air 07/06/18 14:00 76 12 150/104 (119) 99 07/06/18 13:53 166/102 Intake and Output 07/06/18 07/07/18 18:59 06:59 Intake Total 1720 ml 1300 ml Output Total 3800 ml 1650 ml Balance -2080 ml -350 ml Intake Oral 300 ml 1000 ml IV Total 1420 ml 300 ml Output Urine Total 3800 ml 1650 ml # Voids 1 Laboratory Tests 07/06/18 15:15: Sodium Level 119*L, Potassium Level 4.0, Chloride Level 81L, Carbon Dioxide Level 22, Anion Gap 15, Blood Urea Nitrogen 9, Creatinine 0.7, Estimat Glomerular Filtration Rate > 60, Glucose Level 117H, Calcium Level 9.3 07/06/18 18:49: Sodium Level 118*L, Potassium Level 4.1, Chloride Level 86L, Carbon Dioxide Level 21, Anion Gap 11, Blood Urea Nitrogen 9, Creatinine 0.8, Estimat Glomerular Filtration Rate > 60, Glucose Level 177H, Calcium Level 9.7, Troponin I 0.025 07/06/18 23:00: Sodium Level 121L, Potassium Level 4.3, Chloride Level 88L, Carbon Dioxide Level 21, Anion Gap 12, Blood Urea Nitrogen 8, Creatinine 0.8, Estimat Glomerular Filtration Rate > 60, Glucose Level 111H, Calcium Level 9.3 07/07/18 03:00: Troponin I 0.046 07/07/18 04:00: White Blood Count 9.1, Red Blood Count 5.21, Hemoglobin 13.9, Hematocrit 40.4, Mean Corpuscular Volume 78L, Mean Corpuscular Hemoglobin 26.7L, Mean Corpuscular Hemoglobin Concent 34.4, Red Cell Distribution Width 11.4L, Platelet Count 256, Mean Platelet Volume 7.4, Neutrophils (%) (Auto) 81.1H, Lymphocytes (%) (Auto) 14.8L, Monocytes (%) (Auto) 3.6, Eosinophils (%) (Auto) 0.1, Basophils (%) (Auto) 0.4, Sodium Level 121L, Potassium Level 4.1, Chloride Level 88L, Carbon Dioxide Level 20L, Anion Gap 13, Blood Urea Nitrogen 8, Creatinine 0.9, Estimat Glomerular Filtration Rate > 60, Glucose Level 84, Hemoglobin A1c 6.3H, Uric Acid 5.7, Calcium Level 9.5, Phosphorus Level 2.5, Magnesium Level 2.4, Iron Level 114, Total Iron Binding Capacity 273, Percent Iron Saturation 42, Unsaturated Iron Binding 159, Ferritin 544H, Total Bilirubin 0.4, Gamma Glutamyl Transpeptidase 42, Aspartate Amino Transf (AST/ SGOT) 45H, Alanine Aminotransferase (ALT/SGPT) 27, Alkaline Phosphatase 78, Total Creatine Kinase 724H, C-Reactive Protein, Quantitative 18.2H, Pro-B-Type Natriuretic Peptide 329H, Total Protein 7.7, Albumin 3.9, Globulin 3.8, Albumin/ Globulin Ratio 1.0, Triglycerides Level 85, Cholesterol Level 274H, LDL Cholesterol 209H, HDL Cholesterol 44, Cholesterol/HDL Ratio 6.2H, Vitamin B12 Level 1664H, Folate 18.9 07/07/18 07:00: Sodium Level 119*L, Potassium Level 4.0, Chloride Level 88L, Carbon Dioxide Level 18L, Anion Gap 14, Blood Urea Nitrogen 7, Creatinine 0.8, Estimat Glomerular Filtration Rate > 60, Glucose Level 84, Calcium Level 9.3 07/07/18 11:05: Sodium Level 120L, Potassium Level 3.8, Chloride Level 88L, Carbon Dioxide Level 22, Anion Gap 10, Blood Urea Nitrogen 7, Creatinine 0.8, Estimat Glomerular Filtration Rate > 60, Glucose Level 128H, Calcium Level 9.2 Height (Feet): 5 Height (Inches): 6.00 Weight (Pounds): 147 General Appearance: no apparent distress Cardiovascular: regular rhythm Respiratory/Chest: lungs clear Abdomen: soft Hesham Leonard MD Jul 07, 2018 13:42
[2018-07-07 15:51] LABS: ANION GAP 11 mmol/L (5-15); BLOOD UREA NITROGEN 7 mg/dL (7-18); CALCIUM 9.3 MG/DL (8.5-10.1); CARBON DIOXIDE 21 MMOL/L (21-32); CHLORIDE 88 MMOL/L (98-107); CREATININE 0.7 MG/DL (0.55-1.30); POTASSIUM 3.9 MMOL/L (3.5-5.1); SODIUM 120 MMOL/L (136-145)
--- NOTE | 2018-07-07 16:54 | General Progress Note ---
Assessment/Plan Problem List: (1) Hyponatremia ICD Codes: E87.1 - Hypo-osmolality and hyponatremia SNOMED: 23613226 Assessment/Plan Severe life threatening hyponatremia possibly related to excessive water consumption -Nephrology plans to continue hypertonic saline, will monitor in ICU and check BMP tonight Hypokalemia, improved -Continue to replace with KCl prn and monitor levels. Elevated troponin without EKG changes, demand ischemia from severe hyponatremia -Cardiology following History of cannabis and alcohol use, no evidence of withdrawal -Continue to monitor Abnormal T4 with normal TSH, -Continue to monitor for evidence of hypothyroidism Subjective Date patient seen: Jul 07, 2018 Time patient seen: 11:45 ROS Limited/Unobtainable: No Constitutional: Denies: chills, fever HEENT: Denies: eye pain, blurred vision Cardiovascular: Denies: chest pain, edema, irregular heart rate, lightheadedness, palpitations Respiratory: Denies: cough, orthopnea, shortness of breath Gastrointestinal/Abdominal: Denies: abdominal pain, black stools Neurologic/Psychiatric: Denies: anxiety, depressed Endocrine: Denies: excessive sweating Hematologic/Lymphatic: Denies: easy bleeding, easy bruising Allergies: Coded Allergies: CODEINE (Verified Allergy, Unknown, 07/07/18) Subjective Medicine followup for severe hyponatremia, possible dilutional from excessive water intake. She denies any new complaints. No focal weakness or seizure activity. Objective Last 24 Hour Vital Signs Date Time Temp Pulse Resp B/P (MAP) Pulse Ox O2 Delivery O2 Flow Rate FiO2 07/07/18 16:30 79 07/07/18 16:00 80 15 156/87 (110) 99 07/07/18 16:00 Room Air 07/07/18 15:00 77 18 160/92 (114) 99 07/07/18 14:30 74 151/93 07/07/18 14:30 151/93 07/07/18 14:00 78 23 157/91 (113) 100 07/07/18 13:00 77 20 133/97 (109) 99 07/07/18 12:00 Room Air 07/07/18 12:00 77 07/07/18 12:00 74 16 151/93 (112) 99 07/07/18 11:00 75 16 145/105 (118) 99 07/07/18 10:00 73 15 162/86 (111) 100 10/28/18 09:23 83 07/07/18 09:00 93 23 148/104 (119) 100 07/07/18 08:45 177/103 07/07/18 08:45 88 177/103 07/07/18 08:00 Room Air 07/07/18 08:00 97.9 95 18 162/102 (122) 100 07/07/18 07:00 88 14 148/88 (108) 100 07/07/18 06:00 91 12 152/100 (117) 100 07/07/18 05:00 88 12 143/91 (108) 100 07/07/18 04:00 Room Air 07/07/18 04:00 98.8 92 16 144/97 (113) 100 07/07/18 04:00 95 07/07/18 03:00 95 16 163/100 (121) 100 07/07/18 02:00 89 13 128/83 (98) 99 07/07/18 01:00 88 13 143/89 (107) 99 07/07/18 00:00 99.1 90 14 149/96 (113) 100 07/07/18 00:00 Room Air 07/06/18 23:00 91 18 140/97 (111) 99 07/06/18 22:00 88 18 172/108 (129) 100 07/06/18 21:00 107 18 169/120 (136) 100 07/06/18 20:16 105 175/109 07/06/18 20:00 105 07/06/18 20:00 98.6 110 12 185/118 (140) 100 07/06/18 20:00 Room Air 07/06/18 19:20 Room Air 07/06/18 19:00 105 15 175/109 (131) 99 07/06/18 18:00 85 13 151/93 (112) 100 07/06/18 17:00 85 13 116/71 (86) 98 Intake and Output 07/06/18 07/07/18 18:59 06:59 Intake Total 1720 ml 1300 ml Output Total 3800 ml 1650 ml Balance -2080 ml -350 ml Intake Oral 300 ml 1000 ml IV Total 1420 ml 300 ml Output Urine Total 3800 ml 1650 ml # Voids 1 Laboratory Tests 07/06/18 18:49: Sodium Level 118*L, Potassium Level 4.1, Chloride Level 86L, Carbon Dioxide Level 21, Anion Gap 11, Blood Urea Nitrogen 9, Creatinine 0.8, Estimat Glomerular Filtration Rate > 60, Glucose Level 177H, Calcium Level 9.7, Troponin I 0.025 07/06/18 23:00: Sodium Level 121L, Potassium Level 4.3, Chloride Level 88L, Carbon Dioxide Level 21, Anion Gap 12, Blood Urea Nitrogen 8, Creatinine 0.8, Estimat Glomerular Filtration Rate > 60, Glucose Level 111H, Calcium Level 9.3 07/07/18 03:00: Troponin I 0.046 07/07/18 04:00: Sodium Level 121L, Potassium Level 4.1, Chloride Level 88L, Carbon Dioxide Level 20L, Anion Gap 13, Blood Urea Nitrogen 8, Creatinine 0.9, Estimat Glomerular Filtration Rate > 60, Glucose Level 84, Calcium Level 9.5, White Blood Count 9.1, Red Blood Count 5.21, Hemoglobin 13.9, Hematocrit 40.4, Mean Corpuscular Volume 78L, Mean Corpuscular Hemoglobin 26.7L, Mean Corpuscular Hemoglobin Concent 34.4, Red Cell Distribution Width 11.4L, Platelet Count 256, Mean Platelet Volume 7.4, Neutrophils (%) (Auto) 81.1H, Lymphocytes (%) (Auto) 14.8L, Monocytes (%) (Auto) 3.6, Eosinophils (%) (Auto) 0.1, Basophils (%) (Auto ) 0.4, Hemoglobin A1c 6.3H, Uric Acid 5.7, Phosphorus Level 2.5, Magnesium Level 2.4, Iron Level 114, Total Iron Binding Capacity 273, Percent Iron Saturation 42, Unsaturated Iron Binding 159, Ferritin 544H, Total Bilirubin 0.4 , Gamma Glutamyl Transpeptidase 42, Aspartate Amino Transf (AST/SGOT) 45H, Alanine Aminotransferase (ALT/SGPT) 27, Alkaline Phosphatase 78, Total Creatine Kinase 724H, C-Reactive Protein, Quantitative 18.2H, Pro-B-Type Natriuretic Peptide 329H, Total Protein 7.7, Albumin 3.9, Globulin 3.8, Albumin/Globulin Ratio 1.0, Triglycerides Level 85, Cholesterol Level 274H, LDL Cholesterol 209H , HDL Cholesterol 44, Cholesterol/HDL Ratio 6.2H, Vitamin B12 Level 1664H, Folate 18.9 07/07/18 07:00: Sodium Level 119*L, Potassium Level 4.0, Chloride Level 88L, Carbon Dioxide Level 18L, Anion Gap 14, Blood Urea Nitrogen 7, Creatinine 0.8, Estimat Glomerular Filtration Rate > 60, Glucose Level 84, Calcium Level 9.3 07/07/18 11:05: Sodium Level 120L, Potassium Level 3.8, Chloride Level 88L, Carbon Dioxide Level 22, Anion Gap 10, Blood Urea Nitrogen 7, Creatinine 0.8, Estimat Glomerular Filtration Rate > 60, Glucose Level 128H, Calcium Level 9.2 07/07/18 15:16: Sodium Level 120L, Potassium Level 3.9, Chloride Level 88L, Carbon Dioxide Level 21, Anion Gap 11, Blood Urea Nitrogen 7, Creatinine 0.7, Estimat Glomerular Filtration Rate > 60, Glucose Level 110H, Calcium Level 9.3 Height (Feet): 5 Height (Inches): 6.00 Weight (Pounds): 147 General Appearance: no apparent distress, alert Neck: non-tender, normal alignment Cardiovascular: normal peripheral pulses, normal rate, regular rhythm Respiratory/Chest: chest wall non-tender, lungs clear, normal breath sounds Abdomen: non tender, soft Neurologic: no motor/sensory deficits, alert, oriented x 3 Terrance Rothman MD Jul 07, 2018 16:54
--- NOTE | 2018-07-07 18:09 | Pulmonolgy Critical Care Note ---
Critical Care - Asmt/Plan Assessment/Plan: PULMONARY CRITICAL CARE HPI Patient presents with chest pain and weakness, episode syncope/fall, noted to have severe hyponatremia, hypothyroidism. Weakness has been worsening over the last week. She denies taking any medications at this time. She's never had pain like this before or weakness like this. She can barely stand. She denies fevers and chills. There's no productive cough. There's no nausea vomiting or diarrhea. She's not moving her bowels as she's not been eating. She fell recently. She does smoke THC and drinks beer. Other drugs are denied. It's been a long time since she seen her doctor. She doesn't take any medications routinely. She took a Motrin for the chest pain and it didn't help much. Pain is rated 8/10. The patient fell several days ago and has a bruise on the right-hand side of her hip. She is able to weight-bear on this and she states that this is not the reason why she is weak. Allergies: Coded Allergies: No Known Allergies (Unverified , 07/06/18) Patient History Past Medical History: see triage record Social History: Reports: smoking, alcohol use, drug use - thc Social History Narrative with her sisters Last Menstrual Period: na Now: No Reviewed Nursing Documentation: PMH: Agreed; PSxH: Agreed Nursing Documentation-PM Past Medical History: No Stated History Review of Systems All Other Systems: negative except mentioned in HPI Physical Exam Vital Signs noted Date Time Temp Pulse Resp B/P (MAP) Pulse Ox O2 Delivery O2 Flow Rate FiO2 07/06/18 06:54 98.4 80 18 154/109 99 Room Air Sp02 EP Interpretation: reviewed, normal General Appearance: no apparent distress, GCS 15, other - slow moving and cold Head: normocephalic Eyes: bilateral eye normal inspection, bilateral eye PERRL ENT: moist mucus membranes Neck: supple, thyroid normal Respiratory: lungs clear, normal breath sounds Cardiovascular #1: regular rate, rhythm Cardiovascular #2: 2+ radial (R) Gastrointestinal: normal inspection, normal bowel sounds, non tender, no mass, non-distended Musculoskeletal: back normal, normal range of motion Neurologic: alert, oriented x3, DTRs symmetric, sensory intact, motor weakness - Diffuse Psychiatric: depressed affect Skin: normal inspection, warm/dry Medical Decision Making Diagnostic Impression: Primary Impression: Chest pain, elevated troponin NSTEMII (non-ST elevated myocardial infarction) Hyponatremia Hypokalemia Hypothyroid Plan: Continue current management O2 PRN PPX IV fluids per Renal EKG Diagnostic Results Rate: normal Rhythm: NSR ST Segments: no acute changes - First-degree AV block and ST inversions laterally Rhythm Strip Diag. Results EP Interpretation: yes Rhythm: NSR, no PVC's, no ectopy Chest X-Ray Diagnostic Results Chest X-Ray Diagnostic Results : Chest X-Ray Ordered: Yes # of Views/Limited/Complete: 1 View Indication: Other EP Interpretation: Yes Interpretation: no consolidation, no effusion, no pneumothorax Impression: No acute disease Critical Care - Objective Last 24 Hour Vital Signs Date Time Temp Pulse Resp B/P (MAP) Pulse Ox O2 Delivery O2 Flow Rate FiO2 07/07/18 17:00 80 15 121/67 (85) 99 07/07/18 16:30 79 07/07/18 16:00 80 15 156/87 (110) 99 07/07/18 16:00 Room Air 07/07/18 15:00 77 18 160/92 (114) 99 07/07/18 14:30 74 151/93 07/07/18 14:30 151/93 07/07/18 14:00 78 23 157/91 (113) 100 07/07/18 13:00 77 20 133/97 (109) 99 07/07/18 12:00 Room Air 07/07/18 12:00 77 07/07/18 12:00 74 16 151/93 (112) 99 07/07/18 11:00 75 16 145/105 (118) 99 07/07/18 10:00 73 15 162/86 (111) 100 07/07/18 09:23 83 07/07/18 09:00 93 23 148/104 (119) 100 07/07/18 08:45 177/103 07/07/18 08:45 88 177/103 07/07/18 08:00 Room Air 07/07/18 08:00 97.9 95 18 162/102 (122) 100 07/07/18 07:00 88 14 148/88 (108) 100 07/07/18 06:00 91 12 152/100 (117) 100 07/07/18 05:00 88 12 143/91 (108) 100 07/07/18 04:00 Room Air 07/07/18 04:00 98.8 92 16 144/97 (113) 100 07/07/18 04:00 95 07/07/18 03:00 95 16 163/100 (121) 100 07/07/18 02:00 89 13 128/83 (98) 99 07/07/18 01:00 88 13 143/89 (107) 99 07/07/18 00:00 99.1 90 14 149/96 (113) 100 07/07/18 00:00 Room Air 07/06/18 23:00 91 18 140/97 (111) 99 07/06/18 22:00 88 18 172/108 (129) 100 07/06/18 21:00 107 18 169/120 (136) 100 07/06/18 20:16 105 175/109 07/06/18 20:00 105 07/06/18 20:00 98.6 110 12 185/118 (140) 100 07/06/18 20:00 Room Air 07/06/18 19:20 Room Air 07/06/18 19:00 105 15 175/109 (131) 99 Micro: Microbiology Date/Time Source Procedure Growth Status 07/06/18 07:40 Blood Blood Culture - Preliminary NO GROWTH AFTER 24 HOURS Resulted 07/06/18 07:30 Blood Blood Culture - Preliminary NO GROWTH AFTER 24 HOURS Resulted Critical Care - Subjective ROS Limited/Unobtainable: No I&O: Intake and Output 07/06/18 07/07/18 18:59 06:59 Intake Total 1720 ml 1300 ml Output Total 3800 ml 1650 ml Balance -2080 ml -350 ml Intake Oral 300 ml 1000 ml IV Total 1420 ml 300 ml Output Urine Total 3800 ml 1650 ml # Voids 1 Shahab Ling MD Jul 07, 2018 18:09
[2018-07-07 21:10] LABS: ANION GAP 8 mmol/L (5-15); BLOOD UREA NITROGEN 7 mg/dL (7-18); CALCIUM 9.2 MG/DL (8.5-10.1); CARBON DIOXIDE 23 MMOL/L (21-32); CHLORIDE 91 MMOL/L (98-107); CREATININE 0.8 MG/DL (0.55-1.30); POTASSIUM 3.7 MMOL/L (3.5-5.1); SODIUM 122 MMOL/L (136-145)
[2018-07-07] MEDS: Metoprolol Tartrate 50mg tab ORAL SCH (21:27)
[2018-07-08] VITALS (16 sets, daily range): BP systolic 104–165; BP diastolic 53–113
[2018-07-08 06:11] LABS: BASOPHILS % (AUTO) 1.7 % (0.0-2.0); EOSINOPHILS % (AUTO) 2.1 % (0.0-3.0); HEMATOCRIT 38.7 % (37.0-47.0); HEMOGLOBIN 13.2 G/DL (12.0-16.0); MEAN CORPUSCULAR VOLUME 78 FL (80-99); MONOCYTES % (AUTO) 5.3 % (1.0-10.0); NEUTROPHILS % (AUTO) 50.9 % (45.0-75.0); PLATELET COUNT 255 K/UL (150-450); RED BLOOD COUNT 4.98 M/UL (4.20-5.40); RED CELL DISTRIBUTION WIDTH 11.7 % (11.6-14.8); WHITE BLOOD COUNT 8.1 K/UL (4.8-10.8)
[2018-07-08 06:37] LABS: CREATINE KINASE 594 U/L (26-308)
[2018-07-08 06:53] LABS: ALANINE AMINOTRANSFERASE 38 U/L (12-78); ALBUMIN 3.9 G/DL (3.4-5.0); ALBUMIN/GLOBULIN RATIO 1.1 (1.0-2.7); ALKALINE PHOSPHATASE 74 U/L (46-116); ANION GAP 11 mmol/L (5-15); ASPARTATE AMINO TRANSFERASE 63 U/L (15-37); BILIRUBIN,TOTAL 0.5 MG/DL (0.2-1.0); BLOOD UREA NITROGEN 4 mg/dL (7-18); CALCIUM 9.5 MG/DL (8.5-10.1); CARBON DIOXIDE 22 MMOL/L (21-32); CHLORIDE 92 MMOL/L (98-107); CREATININE 0.7 MG/DL (0.55-1.30); PHOSPHORUS 1.6 MG/DL (2.5-4.9); POTASSIUM 3.6 MMOL/L (3.5-5.1); SODIUM 125 MMOL/L (136-145)
[2018-07-08] MEDS ORDERED: Lisinopril 10mg tab ORAL SCH ×2 (09:00)
[2018-07-08] MEDS ORDERED: Potassium Phosphate 30 MM in NS 275 ML IVPB ONE (09:30)
--- NOTE | 2018-07-08 09:40 | Pulmonolgy Critical Care Note ---
Critical Care - Asmt/Plan Problems: (1) Pulmonary hypertension (2) Hyponatremia (3) NSTEMI (non-ST elevated myocardial infarction) (4) Hypokalemia (5) Hypothyroid (6) Chest pain (7) Cannabis abuse Assessment/Plan: Na stable off 3% Free water restriction Replete Mg and Phos F/U renal recs MRI brain ordered PH W/U: LFT's reviewed, HIV pending, serologies ordered, VQ pending Aspiration precautions DVT Px: Hep SQ F/U cards recs Can transfer to [place] [id number] Critical Care - Objective Last 24 Hour Vital Signs Date Time Temp Pulse Resp B/P (MAP) Pulse Ox O2 Delivery O2 Flow Rate FiO2 07/08/18 08:00 99.3 95 18 151/88 (109) 99 07/08/18 06:00 72 16 121/56 (77) 99 07/08/18 05:00 75 16 108/53 (71) 99 07/08/18 04:00 82 07/08/18 04:00 98.4 83 16 148/92 (110) 99 07/08/18 04:00 Room Air 07/08/18 03:46 168/96 07/08/18 03:00 75 16 165/113 (130) 99 07/08/18 02:00 68 16 163/99 (120) 99 07/08/18 01:00 68 16 160/78 (105) 99 07/08/18 00:00 98.8 57 18 120/62 (81) 100 07/08/18 00:00 56 07/08/18 00:00 Room Air 07/07/18 22:00 70 18 158/95 (116) 100 07/07/18 21:27 78 156/105 07/07/18 21:00 77 17 131/82 (98) 100 07/07/18 20:00 Room Air 07/07/18 20:00 74 07/07/18 20:00 98.5 81 16 127/79 (95) 100 07/07/18 19:00 73 17 158/91 (113) 100 07/07/18 18:00 73 17 135/92 (106) 99 07/07/18 18:00 97.9 07/07/18 17:00 80 15 121/67 (85) 99 07/07/18 16:30 79 07/07/18 16:00 80 15 156/87 (110) 99 07/07/18 16:00 Room Air 07/07/18 15:00 77 18 160/92 (114) 99 07/07/18 14:30 74 151/93 07/07/18 14:30 151/93 07/07/18 14:00 78 23 157/91 (113) 100 07/07/18 13:00 77 20 133/97 (109) 99 07/07/18 12:00 Room Air 07/07/18 12:00 77 07/07/18 12:00 74 16 151/93 (112) 99 07/07/18 11:00 75 16 145/105 (118) 99 07/07/18 10:00 73 15 162/86 (111) 100 Status: awake, other - confused Condition: critical, grave HEENT: atraumatic Neck: full ROM Lungs: clear Heart: HR/BP stable Abdomen: soft, non-tender, active bowel sounds Extremities: no C/C/E Micro: Microbiology Date/Time Source Procedure Growth Status 07/06/18 07:40 Blood Blood Culture - Preliminary NO GROWTH AFTER 24 HOURS Resulted 07/06/18 07:30 Blood Blood Culture - Preliminary NO GROWTH AFTER 24 HOURS Resulted 07/06/18 10:06 Nasal Nares MRSA Culture - Final NO METHICILLIN RESISTANT STAPH AUREUS... Complete 07/06/18 10:06 Rectum - Final NO CARBAPENEM-RESISTANT ENTEROBACTERI... Complete 07/06/18 10:06 Rectum VRE Culture - Final NO VANCOMYCIN RESISTANT ENTEROCOCCUS ... Complete Critical Care - Subjective ROS Limited/Unobtainable: Yes ICU Day: 3 Intubation Day: N/A Interval Events: Na 125, off 3% Not following water restriction Resistant to care BP has been elevated Condition: improving IV Access: peripheral EKG Rhythm: Sinus Rhythm Fluids: SLIV I&O: Intake and Output 07/07/18 07/08/18 19:00 07:00 Intake Total 950 ml 750 ml Output Total 1235 ml 1110 ml Balance -285 ml -360 ml Intake Oral 800 ml 390 ml IV Total 150 ml 360 ml Output Urine Total 1235 ml 1110 ml Stool Total 0 ml Subjective: No F/C/CP/SOB/cough/wheezing/NVDC/abd pain, selena PO CXR: 07/06 NAD Labs: Laboratory Tests Test 07/07/18 11:05 07/07/18 15:16 07/07/18 20:50 07/08/18 05:18 Sodium Level 120 MMOL/L (136-145) L 120 MMOL/L (136-145) L 122 MMOL/L (136-145) L 125 MMOL/L (136-145) L Potassium Level 3.8 MMOL/L (3.5-5.1) 3.9 MMOL/L (3.5-5.1) 3.7 MMOL/L (3.5-5.1) 3.6 MMOL/L (3.5-5.1) Chloride Level 88 MMOL/L (98-107) L 88 MMOL/L (98-107) L 91 MMOL/L (98-107) L 92 MMOL/L (98-107) L Carbon Dioxide Level 22 MMOL/L (21-32) 21 MMOL/L (21-32) 23 MMOL/L (21-32) 22 MMOL/L (21-32) Anion Gap 10 mmol/L (5-15) 11 mmol/L (5-15) 8 mmol/L (5-15) 11 mmol/L (5-15) Blood Urea Nitrogen 7 mg/dL (7-18) 7 mg/dL (7-18) 7 mg/dL (7-18) 4 mg/dL (7-18) L Creatinine 0.8 MG/DL (0.55-1.30) 0.7 MG/DL (0.55-1.30) 0.8 MG/DL (0.55-1.30) 0.7 MG/DL (0.55-1.30) Estimat Glomerular Filtration Rate > 60 mL/min (>60) > 60 mL/min (>60) > 60 mL/min (>60) > 60 mL/min (>60) Glucose Level 128 MG/DL (74-106) H 110 MG/DL (74-106) H 102 MG/DL (74-106) 93 MG/DL (74-106) Calcium Level 9.2 MG/DL (8.5-10.1) 9.3 MG/DL (8.5-10.1) 9.2 MG/DL (8.5-10.1) 9.5 MG/DL (8.5-10.1) White Blood Count 8.1 K/UL (4.8-10.8) Red Blood Count 4.98 M/UL (4.20-5.40) Hemoglobin 13.2 G/DL (12.0-16.0) Hematocrit 38.7 % (37.0-47.0) Mean Corpuscular Volume 78 FL (80-99) L Mean Corpuscular Hemoglobin 26.6 PG (27.0-31.0) L Mean Corpuscular Hemoglobin Concent 34.2 G/DL (32.0-36.0) Red Cell Distribution Width 11.7 % (11.6-14.8) Platelet Count 255 K/UL (150-450) Mean Platelet Volume 7.7 FL (6.5-10.1) Neutrophils (%) (Auto) 50.9 % (45.0-75.0) Lymphocytes (%) (Auto) 40.0 % (20.0-45.0) Monocytes (%) (Auto) 5.3 % (1.0-10.0) Eosinophils (%) (Auto) 2.1 % (0.0-3.0) Basophils (%) (Auto) 1.7 % (0.0-2.0) Uric Acid 4.6 MG/DL (2.6-7.2) Phosphorus Level 1.6 MG/DL (2.5-4.9) L Magnesium Level 1.7 MG/DL (1.8-2.4) L Total Bilirubin 0.5 MG/DL (0.2-1.0) Aspartate Amino Transf (AST/SGOT) 63 U/L (15-37) H Alanine Aminotransferase (ALT/SGPT) 38 U/L (12-78) Alkaline Phosphatase 74 U/L (46-116) Total Creatine Kinase 594 U/L (26-308) H Troponin I 0.041 ng/mL (0.000-0.056) C-Reactive Protein, Quantitative 8.1 mg/dL (0.00-0.90) H Pro-B-Type Natriuretic Peptide 360 pg/mL (0-125) H Total Protein 7.5 G/DL (6.4-8.2) Albumin 3.9 G/DL (3.4-5.0) Globulin 3.6 g/dL Albumin/Globulin Ratio 1.1 (1.0-2.7) Richar De Leon MD Jul 08, 2018 09:40
[2018-07-08] MEDS ORDERED: Gadavist 7.5mMol/7.5ml vial IV PRN (09:45)
[2018-07-08] MEDS ORDERED: D5NS 1,000 ML IV SCH (09:45)
[2018-07-08] MEDS: Aspirin Baby 81mg ORAL SCH (09:57)
[2018-07-08] MEDS: Metoprolol Tartrate 50mg tab ORAL SCH ×2 (09:59→22:04)
[2018-07-08] MEDS: Nitroglycerin Patch 0.4mg TDERMAL SCH (10:00)
[2018-07-08] MEDS: Heparin 5000 units/ml inj SUBQ SCH ×2 (10:16→22:04)
[2018-07-08] MEDS ORDERED: NaCl 3% 500ml 500 ML IV SCH ×2 (10:30→17:19)
[2018-07-08] MEDS ORDERED: Sodium Phosphate 30 MM in NS 275 ML IVPB SCH (10:30)
--- NOTE | 2018-07-08 11:46 | General Progress Note ---
Assessment/Plan Problem List: (1) Hyponatremia ICD Codes: E87.1 - Hypo-osmolality and hyponatremia SNOMED: 54100374 (2) Cannabis abuse ICD Codes: F12.10 - Cannabis abuse, uncomplicated SNOMED: 52521693 (3) NSTEMI (non-ST elevated myocardial infarction) ICD Codes: I21.4 - Non-ST elevation (NSTEMI) myocardial infarction SNOMED: 144901800 Assessment/Plan Severe life threatening hyponatremia possibly related to excessive water consumption -Nephrology plans to continue hypertonic saline - appreciate Nephrology and Pulmonary - ok to monitor in tele Hypokalemia, improved -Continue to replace with KCl prn and monitor levels. Elevated troponin without EKG changes, demand ischemia from severe hyponatremia -Cardiology following, appreciate reqs History of cannabis and alcohol use, no evidence of withdrawal -Continue to monitor Abnormal T4 with normal TSH, -Continue to monitor for evidence of hypothyroidism Subjective Date patient seen: Jul 08, 2018 Time patient seen: 09:00 ROS Limited/Unobtainable: Yes - patient appears confused Allergies: Coded Allergies: CODEINE (Verified Allergy, Unknown, 07/07/18) Subjective patient denies nausea, vomiting, fevers and chills. Per nursing staff, patient continues to be non compliant and drinks more water than allowed by her restriction Objective Last 24 Hour Vital Signs Date Time Temp Pulse Resp B/P (MAP) Pulse Ox O2 Delivery O2 Flow Rate FiO2 07/08/18 11:00 73 17 130/80 (97) 100 07/08/18 10:00 145/95 07/08/18 10:00 96 17 140/80 (100) 99 07/08/18 09:59 103 145/95 07/08/18 09:59 103 145/95 07/08/18 09:58 145/95 07/08/18 09:00 97 18 145/95 (112) 100 07/08/18 08:00 99.3 95 18 151/88 (109) 99 07/08/18 08:00 Room Air 07/08/18 08:00 95 07/08/18 06:00 72 16 121/56 (77) 99 07/08/18 05:00 75 16 108/53 (71) 99 07/08/18 04:00 82 07/08/18 04:00 98.4 83 16 148/92 (110) 99 07/08/18 04:00 Room Air 07/08/18 03:46 168/96 07/08/18 03:00 75 16 165/113 (130) 99 07/08/18 02:00 68 16 163/99 (120) 99 07/08/18 01:00 68 16 160/78 (105) 99 07/08/18 00:00 98.8 57 18 120/62 (81) 100 07/08/18 00:00 56 07/08/18 00:00 Room Air 07/07/18 22:00 70 18 158/95 (116) 100 07/07/18 21:27 78 156/105 07/07/18 21:00 77 17 131/82 (98) 100 07/07/18 20:00 Room Air 07/07/18 20:00 74 07/07/18 20:00 98.5 81 16 127/79 (95) 100 07/07/18 19:00 73 17 158/91 (113) 100 07/07/18 18:00 73 17 135/92 (106) 99 07/07/18 18:00 97.9 07/07/18 17:00 80 15 121/67 (85) 99 07/07/18 16:30 79 07/07/18 16:00 80 15 156/87 (110) 99 07/07/18 16:00 Room Air 07/07/18 15:00 77 18 160/92 (114) 99 07/07/18 14:30 74 151/93 07/07/18 14:30 151/93 07/07/18 14:00 78 23 157/91 (113) 100 07/07/18 13:00 77 20 133/97 (109) 99 07/07/18 12:00 Room Air 07/07/18 12:00 77 07/07/18 12:00 74 16 151/93 (112) 99 Intake and Output 07/07/18 07/08/18 19:00 07:00 Intake Total 950 ml 750 ml Output Total 1235 ml 1110 ml Balance -285 ml -360 ml Intake Oral 800 ml 390 ml IV Total 150 ml 360 ml Output Urine Total 1235 ml 1110 ml Stool Total 0 ml Laboratory Tests 07/07/18 15:16: Sodium Level 120L, Potassium Level 3.9, Chloride Level 88L, Carbon Dioxide Level 21, Anion Gap 11, Blood Urea Nitrogen 7, Creatinine 0.7, Estimat Glomerular Filtration Rate > 60, Glucose Level 110H, Calcium Level 9.3 07/07/18 20:50: Sodium Level 122L, Potassium Level 3.7, Chloride Level 91L, Carbon Dioxide Level 23, Anion Gap 8, Blood Urea Nitrogen 7, Creatinine 0.8, Estimat Glomerular Filtration Rate > 60, Glucose Level 102, Calcium Level 9.2 07/08/18 05:18: Sodium Level 125L, Potassium Level 3.6, Chloride Level 92L, Carbon Dioxide Level 22, Anion Gap 11, Blood Urea Nitrogen 4L, Creatinine 0.7, Estimat Glomerular Filtration Rate > 60, Glucose Level 93, Calcium Level 9.5, White Blood Count 8.1, Red Blood Count 4.98, Hemoglobin 13.2, Hematocrit 38.7, Mean Corpuscular Volume 78L, Mean Corpuscular Hemoglobin 26.6L, Mean Corpuscular Hemoglobin Concent 34.2, Red Cell Distribution Width 11.7, Platelet Count 255, Mean Platelet Volume 7.7, Neutrophils (%) (Auto) 50.9, Lymphocytes (%) (Auto) 40.0, Monocytes (%) (Auto) 5.3, Eosinophils (%) (Auto) 2.1, Basophils (%) (Auto ) 1.7, Uric Acid 4.6, Phosphorus Level 1.6L, Magnesium Level 1.7L, Total Bilirubin 0.5, Aspartate Amino Transf (AST/SGOT) 63H, Alanine Aminotransferase ( ALT/SGPT) 38, Alkaline Phosphatase 74, Total Creatine Kinase 594H, Troponin I 0.041, C-Reactive Protein, Quantitative 8.1H, Pro-B-Type Natriuretic Peptide 360H, Total Protein 7.5, Albumin 3.9, Globulin 3.6, Albumin/Globulin Ratio 1.1 07/08/18 09:45: C-Reactive Protein, Quantitative 7.5H, Erythrocyte Sedimentation Rate 125H, Rheumatoid Factor Screen [Pending], Cyclic Citrullinated Peptide IgG Ab [Pending ], Anti-Nuclear Antibody Screen [Pending], c-ANCA Titer [Pending], p-ANCA Titer [Pending], Hepatitis A IgM Antibody [Pending], Hepatitis B Surface Antigen [ Pending], Hepatitis B Core IgM Antibody [Pending], Hepatitis C Antibody [Pending ], HIV (1&2) Antibody Rapid Negative Height (Feet): 5 Height (Inches): 6.00 Weight (Pounds): 150 General Appearance: WD/WN, no apparent distress, alert, confused, other - easily distractible EENT: PERRL/EOMI, normal ENT inspection, TMs normal Neck: non-tender, normal alignment, supple, normal inspection Cardiovascular: normal peripheral pulses, normal rate, regular rhythm, regularly irregular, no gallop/murmur, no JVD Respiratory/Chest: chest wall non-tender, lungs clear, normal breath sounds, no respiratory distress, no accessory muscle use Abdomen: normal bowel sounds, non tender, soft, no organomegaly, no mass Extremities: normal range of motion, non-tender, normal inspection Edema: no edema noted Arm (L), no edema noted Arm (R), no edema noted Leg (L), no edema noted Leg (R), no edema noted Pedal (L), no edema noted Pedal (R), no edema noted Generalized Neurologic: supervisor screen printing II-XII grossly normal, no motor/sensory deficits, oriented x 3 , responsive Skin: normal pigmentation, warm/dry Briseyda Henriquez DO Jul 08, 2018 11:46
--- NOTE | 2018-07-08 13:52 | Nephrology Progress Note ---
Assessment/Plan Problem List: (1) Hyponatremia (2) Hypothyroid (3) NSTEMI (non-ST elevated myocardial infarction) (4) Hypokalemia Assessment Severe Hyponatremia : ? Depletional ? SIADH HypoKalemia Low MCV elevated troponin h/o HypoThyroidism Plan PATIENT ADVISED TO STOP DRINKING SO MUCH WATER ! PO fluid restriction 3% Saline K IV Mag IV Nitro ,asa, betablocker per orders Dc higgins Subjective ROS Limited/Unobtainable: No Objective Objective Last 24 Hour Vital Signs Date Time Temp Pulse Resp B/P (MAP) Pulse Ox O2 Delivery O2 Flow Rate FiO2 07/08/18 12:00 62 07/08/18 12:00 63 17 104/66 (79) 99 07/08/18 11:00 73 17 130/80 (97) 100 07/08/18 10:00 145/95 07/08/18 10:00 96 17 140/80 (100) 99 07/08/18 09:59 103 145/95 07/08/18 09:59 103 145/95 07/08/18 09:58 145/95 07/08/18 09:00 97 18 145/95 (112) 100 07/08/18 08:00 99.3 95 18 151/88 (109) 99 07/08/18 08:00 Room Air 07/08/18 08:00 95 07/08/18 06:00 72 16 121/56 (77) 99 07/08/18 05:00 75 16 108/53 (71) 99 07/08/18 04:00 82 07/08/18 04:00 98.4 83 16 148/92 (110) 99 07/08/18 04:00 Room Air 07/08/18 03:46 168/96 07/08/18 03:00 75 16 165/113 (130) 99 07/08/18 02:00 68 16 163/99 (120) 99 07/08/18 01:00 68 16 160/78 (105) 99 07/08/18 00:00 98.8 57 18 120/62 (81) 100 07/08/18 00:00 56 07/08/18 00:00 Room Air 07/07/18 22:00 70 18 158/95 (116) 100 07/07/18 21:27 78 156/105 07/07/18 21:00 77 17 131/82 (98) 100 07/07/18 20:00 Room Air 07/07/18 20:00 74 07/07/18 20:00 98.5 81 16 127/79 (95) 100 07/07/18 19:00 73 17 158/91 (113) 100 07/07/18 18:00 73 17 135/92 (106) 99 07/07/18 18:00 97.9 07/07/18 17:00 80 15 121/67 (85) 99 07/07/18 16:30 79 07/07/18 16:00 80 15 156/87 (110) 99 07/07/18 16:00 Room Air 07/07/18 15:00 77 18 160/92 (114) 99 07/07/18 14:30 74 151/93 07/07/18 14:30 151/93 07/07/18 14:00 78 23 157/91 (113) 100 Intake and Output 07/07/18 07/08/18 19:00 07:00 Intake Total 950 ml 750 ml Output Total 1235 ml 1110 ml Balance -285 ml -360 ml Intake Oral 800 ml 390 ml IV Total 150 ml 360 ml Output Urine Total 1235 ml 1110 ml Stool Total 0 ml Laboratory Tests 07/07/18 15:16: Sodium Level 120L, Potassium Level 3.9, Chloride Level 88L, Carbon Dioxide Level 21, Anion Gap 11, Blood Urea Nitrogen 7, Creatinine 0.7, Estimat Glomerular Filtration Rate > 60, Glucose Level 110H, Calcium Level 9.3 07/07/18 20:50: Sodium Level 122L, Potassium Level 3.7, Chloride Level 91L, Carbon Dioxide Level 23, Anion Gap 8, Blood Urea Nitrogen 7, Creatinine 0.8, Estimat Glomerular Filtration Rate > 60, Glucose Level 102, Calcium Level 9.2 07/08/18 05:18: Sodium Level 125L, Potassium Level 3.6, Chloride Level 92L, Carbon Dioxide Level 22, Anion Gap 11, Blood Urea Nitrogen 4L, Creatinine 0.7, Estimat Glomerular Filtration Rate > 60, Glucose Level 93, Calcium Level 9.5, White Blood Count 8.1, Red Blood Count 4.98, Hemoglobin 13.2, Hematocrit 38.7, Mean Corpuscular Volume 78L, Mean Corpuscular Hemoglobin 26.6L, Mean Corpuscular Hemoglobin Concent 34.2, Red Cell Distribution Width 11.7, Platelet Count 255, Mean Platelet Volume 7.7, Neutrophils (%) (Auto) 50.9, Lymphocytes (%) (Auto) 40.0, Monocytes (%) (Auto) 5.3, Eosinophils (%) (Auto) 2.1, Basophils (%) (Auto ) 1.7, Uric Acid 4.6, Phosphorus Level 1.6L, Magnesium Level 1.7L, Total Bilirubin 0.5, Aspartate Amino Transf (AST/SGOT) 63H, Alanine Aminotransferase ( ALT/SGPT) 38, Alkaline Phosphatase 74, Total Creatine Kinase 594H, Troponin I 0.041, C-Reactive Protein, Quantitative 8.1H, Pro-B-Type Natriuretic Peptide 360H, Total Protein 7.5, Albumin 3.9, Globulin 3.6, Albumin/Globulin Ratio 1.1 07/08/18 09:45: C-Reactive Protein, Quantitative 7.5H, Erythrocyte Sedimentation Rate 125H, Rheumatoid Factor Screen [Pending], Cyclic Citrullinated Peptide IgG Ab [Pending ], Anti-Nuclear Antibody Screen [Pending], c-ANCA Titer [Pending], p-ANCA Titer [Pending], Hepatitis A IgM Antibody [Pending], Hepatitis B Surface Antigen [ Pending], Hepatitis B Core IgM Antibody [Pending], Hepatitis C Antibody [Pending ], HIV (1&2) Antibody Rapid Negative Height (Feet): 5 Height (Inches): 6.00 Weight (Pounds): 150 General Appearance: no apparent distress Cardiovascular: normal rate Respiratory/Chest: lungs clear Objective no change Hesham Leonard MD Jul 08, 2018 13:52
--- NOTE | 2018-07-08 13:57 | Cardiac Electrophysiology PN ---
Assessment/Plan Assessment/Plan 1. [id number] myocardial infarction, abnormal EKG, elevated troponin, and chest pain. The patient currently is chest pain-free, however, with abnormal EKG, it could be due to profound hypokalemia, potassium 2.6. The patient also has severe hyponatremia. Continue aspirin, beta-saeid, and anticoagulation Repeat troponins are negtive. Echocardiogram showed Nl EF 2. Severe hypokalemia. Potassium was replaced. 3. Hypothyroidism. 4. Severe hyponatremia. The patient is on 3% saline.Na still 125 SWAPNA huang RN Subjective Subjective Still on hypertonic saline in ICU. Getting MRI brain Objective Last 24 Hour Vital Signs Date Time Temp Pulse Resp B/P (MAP) Pulse Ox O2 Delivery O2 Flow Rate FiO2 07/08/18 12:00 62 07/08/18 12:00 63 17 104/66 (79) 99 07/08/18 11:00 73 17 130/80 (97) 100 07/08/18 10:00 145/95 07/08/18 10:00 96 17 140/80 (100) 99 07/08/18 09:59 103 145/95 07/08/18 09:59 103 145/95 07/08/18 09:58 145/95 07/08/18 09:00 97 18 145/95 (112) 100 07/08/18 08:00 99.3 95 18 151/88 (109) 99 07/08/18 08:00 Room Air 07/08/18 08:00 95 07/08/18 06:00 72 16 121/56 (77) 99 07/08/18 05:00 75 16 108/53 (71) 99 07/08/18 04:00 82 07/08/18 04:00 98.4 83 16 148/92 (110) 99 07/08/18 04:00 Room Air 07/08/18 03:46 168/96 07/08/18 03:00 75 16 165/113 (130) 99 07/08/18 02:00 68 16 163/99 (120) 99 07/08/18 01:00 68 16 160/78 (105) 99 07/08/18 00:00 98.8 57 18 120/62 (81) 100 07/08/18 00:00 56 07/08/18 00:00 Room Air 07/07/18 22:00 70 18 158/95 (116) 100 07/07/18 21:27 78 156/105 07/07/18 21:00 77 17 131/82 (98) 100 07/07/18 20:00 Room Air 07/07/18 20:00 74 07/07/18 20:00 98.5 81 16 127/79 (95) 100 07/07/18 19:00 73 17 158/91 (113) 100 07/07/18 18:00 73 17 135/92 (106) 99 07/07/18 18:00 97.9 07/07/18 17:00 80 15 121/67 (85) 99 07/07/18 16:30 79 07/07/18 16:00 80 15 156/87 (110) 99 07/07/18 16:00 Room Air 07/07/18 15:00 77 18 160/92 (114) 99 07/07/18 14:30 74 151/93 07/07/18 14:30 151/93 07/07/18 14:00 78 23 157/91 (113) 100 Intake and Output 07/07/18 07/08/18 19:00 07:00 Intake Total 950 ml 750 ml Output Total 1235 ml 1110 ml Balance -285 ml -360 ml Intake Oral 800 ml 390 ml IV Total 150 ml 360 ml Output Urine Total 1235 ml 1110 ml Stool Total 0 ml Laboratory Tests Test 07/07/18 15:16 07/07/18 20:50 07/08/18 05:18 07/08/18 09:45 Sodium Level 120 MMOL/L (136-145) L 122 MMOL/L (136-145) L 125 MMOL/L (136-145) L Potassium Level 3.9 MMOL/L (3.5-5.1) 3.7 MMOL/L (3.5-5.1) 3.6 MMOL/L (3.5-5.1) Chloride Level 88 MMOL/L (98-107) L 91 MMOL/L (98-107) L 92 MMOL/L (98-107) L Carbon Dioxide Level 21 MMOL/L (21-32) 23 MMOL/L (21-32) 22 MMOL/L (21-32) Anion Gap 11 mmol/L (5-15) 8 mmol/L (5-15) 11 mmol/L (5-15) Blood Urea Nitrogen 7 mg/dL (7-18) 7 mg/dL (7-18) 4 mg/dL (7-18) L Creatinine 0.7 MG/DL (0.55-1.30) 0.8 MG/DL (0.55-1.30) 0.7 MG/DL (0.55-1.30) Estimat Glomerular Filtration Rate > 60 mL/min (>60) > 60 mL/min (>60) > 60 mL/min (>60) Glucose Level 110 MG/DL (74-106) H 102 MG/DL (74-106) 93 MG/DL (74-106) Calcium Level 9.3 MG/DL (8.5-10.1) 9.2 MG/DL (8.5-10.1) 9.5 MG/DL (8.5-10.1) White Blood Count 8.1 K/UL (4.8-10.8) Red Blood Count 4.98 M/UL (4.20-5.40) Hemoglobin 13.2 G/DL (12.0-16.0) Hematocrit 38.7 % (37.0-47.0) Mean Corpuscular Volume 78 FL (80-99) L Mean Corpuscular Hemoglobin 26.6 PG (27.0-31.0) L Mean Corpuscular Hemoglobin Concent 34.2 G/DL (32.0-36.0) Red Cell Distribution Width 11.7 % (11.6-14.8) Platelet Count 255 K/UL (150-450) Mean Platelet Volume 7.7 FL (6.5-10.1) Neutrophils (%) (Auto) 50.9 % (45.0-75.0) Lymphocytes (%) (Auto) 40.0 % (20.0-45.0) Monocytes (%) (Auto) 5.3 % (1.0-10.0) Eosinophils (%) (Auto) 2.1 % (0.0-3.0) Basophils (%) (Auto) 1.7 % (0.0-2.0) Uric Acid 4.6 MG/DL (2.6-7.2) Phosphorus Level 1.6 MG/DL (2.5-4.9) L Magnesium Level 1.7 MG/DL (1.8-2.4) L Total Bilirubin 0.5 MG/DL (0.2-1.0) Aspartate Amino Transf (AST/SGOT) 63 U/L (15-37) H Alanine Aminotransferase (ALT/SGPT) 38 U/L (12-78) Alkaline Phosphatase 74 U/L (46-116) Total Creatine Kinase 594 U/L (26-308) H Troponin I 0.041 ng/mL (0.000-0.056) C-Reactive Protein, Quantitative 8.1 mg/dL (0.00-0.90) H 7.5 mg/dL (0.00-0.90) H Pro-B-Type Natriuretic Peptide 360 pg/mL (0-125) H Total Protein 7.5 G/DL (6.4-8.2) Albumin 3.9 G/DL (3.4-5.0) Globulin 3.6 g/dL Albumin/Globulin Ratio 1.1 (1.0-2.7) Erythrocyte Sedimentation Rate 125 MM/HR (0-30) H Rheumatoid Factor Screen Pending Cyclic Citrullinated Peptide IgG Ab Pending Anti-Nuclear Antibody Screen Pending c-ANCA Titer Pending p-ANCA Titer Pending Hepatitis A IgM Antibody Pending Hepatitis B Surface Antigen Pending Hepatitis B Core IgM Antibody Pending Hepatitis C Antibody Pending HIV (1&2) Antibody Rapid Negative (NEGATIVE) Microbiology Date/Time Source Procedure Growth Status 07/06/18 07:40 Blood Blood Culture - Preliminary NO GROWTH AFTER 24 HOURS Resulted 07/06/18 07:30 Blood Blood Culture - Preliminary NO GROWTH AFTER 24 HOURS Resulted 07/06/18 10:06 Nasal Nares MRSA Culture - Final NO METHICILLIN RESISTANT STAPH AUREUS... Complete 07/06/18 10:06 Rectum - Final NO CARBAPENEM-RESISTANT ENTEROBACTERI... Complete 07/06/18 10:06 Rectum VRE Culture - Final NO VANCOMYCIN RESISTANT ENTEROCOCCUS ... Complete Objective HEAD AND NECK: No JVD. LUNGS: Clear. CARDIOVASCULAR: Regular S1 and S2 with no gallop or murmur. ABDOMEN: Soft. EXTREMITIES: No pitting edema. Geovanni Navas MD Jul 08, 2018 13:57
--- NOTE | 2018-07-08 16:34 | Diagnostic Imaging Report ---
Indication: Altered mental status Technique: The head was imaged in a 1.5 [place] magnet. Sequences obtained include sagittal and axial T1 FLAIR, axial T2 fast spin echo with fat saturation, axial T2 FLAIR, diffusion and ADC map. Gadolinium-enhanced axial and coronal T1 FLAIR obtained also. Comparison: None There is an apparent cyst mass in the area of the sella exhibiting heterogeneous signal intensity with T1 hyperintensity on the right side of the mass suspicious for subacute blood. This may be a tumor such as a pituitary adenoma with hemorrhage. There is some peripheral enhancement along the anterior margin of the mass and the posterior margin of the mass. Differential includes proteinaceous material or heterogeneity within a necrotic pituitary macroadenoma or other mass. Clinical correlation is needed. T1 hyperintensity is also seen with fat such as in a dermoid tumor or teratoma. There is no diffusion restriction. There is no mass effect or edema. Cerebral sulci and basal cisterns appear normal. Generalized atrophy of the brain is noted in a diffuse fashion involving the cerebrum and cerebellum. Corpus callosum is normal in appearance. Osseous bone marrow signal is normal. 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 T1 hyperintensity within the tumor likely represent subacute blood as would be found in a pituitary hemorrhage (pituitary apoplexy). Differential diagnosis includes pituitary teratoma/dermoid. Please correlate clinically. Mild generalized atrophy of the brain No evidence of acute CVA, mass effect or edema.
--- NOTE | 2018-07-08 16:56 | Diagnostic Imaging Report ---
Indication: Chest pain Technique: A ventilation/perfusion scan was performed. Ventilation was performed utilizing 44 mCi of Technetium 99m-DTPA. Perfusion was performed with 5.5 mCi of technetium 99m-MAA injected intravenously. Multiple side by side projections obtained. Findings: Ventilation is homogeneous. No defects are identified. Perfusion is homogeneous. No defects are identified. Impression: Low probability for pulmonary embolus
[2018-07-08] MEDS ORDERED: Sodium Phosphate 30 MM in NS 275 ML IVPB ONE (17:00)
--- NOTE | 2018-07-08 23:26 | Consultation ---
History of Present Illness General Date patient seen: Jul 08, 2018 Chief Complaint: Chest Pain Present Illness HPI 62 year old woman with no known medical history, does not take any medications nor follow up with physician the pt has been irritable angry and refusing to follow the MD orders Allergies: Coded Allergies: CODEINE (Verified Allergy, Unknown, 07/07/18) Patient History Limited by: medical condition History Provided By: Patient, Medical Record Healthcare decision maker Resuscitation status Full Code Advanced Directive on File No Past Medical/Surgical History Past Medical/Surgical History: (1) Cannabis abuse (2) Hyponatremia (3) Chest pain (4) Hypothyroid (5) NSTEMI (non-ST elevated myocardial infarction) (6) Hypokalemia (7) Pulmonary hypertension Review of Systems Psychiatric: Reports: prior hx, anxiety, depressed feelings, emotional problems Physical Exam General Appearance: alert Last 24 Hour Vital Signs Date Time Temp Pulse Resp B/P (MAP) Pulse Ox O2 Delivery O2 Flow Rate FiO2 07/08/18 22:04 68 110/68 07/08/18 20:00 70 07/08/18 20:00 97.2 68 16 110/68 (82) 99 07/08/18 17:00 97.5 76 20 147/87 (107) 99 07/08/18 16:00 Room Air 07/08/18 15:00 71 18 139/83 (101) 100 07/08/18 14:00 62 15 135/77 (96) 99 07/08/18 12:00 62 07/08/18 12:00 63 17 104/66 (79) 99 07/08/18 12:00 Room Air 07/08/18 11:00 73 17 130/80 (97) 100 07/08/18 10:00 145/95 07/08/18 10:00 96 17 140/80 (100) 99 07/08/18 09:59 103 145/95 07/08/18 09:59 103 145/95 07/08/18 09:58 145/95 07/08/18 09:00 97 18 145/95 (112) 100 07/08/18 08:00 99.3 95 18 151/88 (109) 99 07/08/18 08:00 Room Air 07/08/18 08:00 95 07/08/18 06:00 72 16 121/56 (77) 99 07/08/18 05:00 75 16 108/53 (71) 99 07/08/18 04:00 82 07/08/18 04:00 98.4 83 16 148/92 (110) 99 07/08/18 04:00 Room Air 07/08/18 03:46 168/96 07/08/18 03:00 75 16 165/113 (130) 99 07/08/18 02:00 68 16 163/99 (120) 99 07/08/18 01:00 68 16 160/78 (105) 99 07/08/18 00:00 98.8 57 18 120/62 (81) 100 07/08/18 00:00 56 07/08/18 00:00 Room Air Intake and Output 07/07/18 07/08/18 18:59 06:59 Intake Total 920 ml 780 ml Output Total 1235 ml 1100 ml Balance -315 ml -320 ml Intake Oral 800 ml 390 ml IV Total 120 ml 390 ml Output Urine Total 1235 ml 1100 ml Stool Total 0 ml Laboratory Tests Test 07/08/18 05:18 07/08/18 09:45 White Blood Count 8.1 K/UL (4.8-10.8) Red Blood Count 4.98 M/UL (4.20-5.40) Hemoglobin 13.2 G/DL (12.0-16.0) Hematocrit 38.7 % (37.0-47.0) Mean Corpuscular Volume 78 FL (80-99) L Mean Corpuscular Hemoglobin 26.6 PG (27.0-31.0) L Mean Corpuscular Hemoglobin Concent 34.2 G/DL (32.0-36.0) Red Cell Distribution Width 11.7 % (11.6-14.8) Platelet Count 255 K/UL (150-450) Mean Platelet Volume 7.7 FL (6.5-10.1) Neutrophils (%) (Auto) 50.9 % (45.0-75.0) Lymphocytes (%) (Auto) 40.0 % (20.0-45.0) Monocytes (%) (Auto) 5.3 % (1.0-10.0) Eosinophils (%) (Auto) 2.1 % (0.0-3.0) Basophils (%) (Auto) 1.7 % (0.0-2.0) Sodium Level 125 MMOL/L (136-145) L Potassium Level 3.6 MMOL/L (3.5-5.1) Chloride Level 92 MMOL/L (98-107) L Carbon Dioxide Level 22 MMOL/L (21-32) Anion Gap 11 mmol/L (5-15) Blood Urea Nitrogen 4 mg/dL (7-18) L Creatinine 0.7 MG/DL (0.55-1.30) Estimat Glomerular Filtration Rate > 60 mL/min (>60) Glucose Level 93 MG/DL (74-106) Uric Acid 4.6 MG/DL (2.6-7.2) Calcium Level 9.5 MG/DL (8.5-10.1) Phosphorus Level 1.6 MG/DL (2.5-4.9) L Magnesium Level 1.7 MG/DL (1.8-2.4) L Total Bilirubin 0.5 MG/DL (0.2-1.0) Aspartate Amino Transf (AST/SGOT) 63 U/L (15-37) H Alanine Aminotransferase (ALT/SGPT) 38 U/L (12-78) Alkaline Phosphatase 74 U/L (46-116) Total Creatine Kinase 594 U/L (26-308) H Troponin I 0.041 ng/mL (0.000-0.056) C-Reactive Protein, Quantitative 8.1 mg/dL (0.00-0.90) H 7.5 mg/dL (0.00-0.90) H Pro-B-Type Natriuretic Peptide 360 pg/mL (0-125) H Total Protein 7.5 G/DL (6.4-8.2) Albumin 3.9 G/DL (3.4-5.0) Globulin 3.6 g/dL Albumin/Globulin Ratio 1.1 (1.0-2.7) Erythrocyte Sedimentation Rate 125 MM/HR (0-30) H Rheumatoid Factor Screen Pending Cyclic Citrullinated Peptide IgG Ab Pending Anti-Nuclear Antibody Screen Pending c-ANCA Titer Pending p-ANCA Titer Pending Hepatitis A IgM Antibody Pending Hepatitis B Surface Antigen Pending Hepatitis B Core IgM Antibody Pending Hepatitis C Antibody Pending HIV (1&2) Antibody Rapid Negative (NEGATIVE) Height (Feet): 5 Height (Inches): 6.00 Weight (Pounds): 150 Medications Current Medications Medications (Trade) Dose Ordered Sig/Richard Route PRN Reason Start Time Stop Time Status Last Admin Dose Admin Acetaminophen (Tylenol) 650 mg Q6H PRN ORAL Mild Pain/Temp > 100.5 07/08/18 17:12 08/05/18 17:11 Amlodipine Besylate (Norvasc) 2.5 mg DAILY ORAL 07/09/18 09:00 08/08/18 08:59 Aspirin (ASA) 162 mg DAILY ORAL 07/09/18 09:00 08/06/18 08:59 Dextrose (Dextrose 50%) 25 ml Q30M PRN IV Hypoglycemia 07/08/18 17:11 08/05/18 17:10 Dextrose (Dextrose 50%) 50 ml Q30M PRN IV Hypoglycemia 07/08/18 17:11 08/05/18 17:10 Dextrose/Sodium Chloride 1,000 ml @ 75 mls/hr [id number] IV 07/09/18 02:24 08/08/18 02:23 Famotidine (Pepcid) 20 mg BID ORAL 07/08/18 18:00 08/05/18 17:59 07/08/18 18:26 Heparin Sodium (Porcine) (Heparin 5000 units/ml) 5,000 units EVERY 12 HOURS SUBQ 07/08/18 21:00 08/05/18 20:59 07/08/18 22:04 Hydralazine HCl (Apresoline) 10 mg Q4H PRN IV For High Blood Pressure 07/08/18 17:12 08/07/18 17:11 Lisinopril (Zestril) 10 mg DAILY ORAL 07/09/18 09:00 08/07/18 08:59 Metoprolol Tartrate (Lopressor) 50 mg Q12HR ORAL 07/08/18 21:00 08/05/18 20:59 07/08/18 22:04 Nitroglycerin (Ntg) 1 patch DAILY TDERMAL 07/09/18 09:00 08/05/18 12:59 Sodium Chloride 500 ml @ 30 mls/hr ONCE IV 07/08/18 17:19 07/09/18 02:23 Assessment/Plan Problem List: (1) Cannabis abuse ICD Codes: F12.10 - Cannabis abuse, uncomplicated SNOMED: 75365677 Status: not improved, unchanged Assessment/Plan mood d/o nos the pt has cluster b personality traits and illogical the pt was reluctant to meds Chandler Reynolds MD Jul 08, 2018 23:26
[2018-07-09] VITALS: BP 142/80
[2018-07-09] MEDS ORDERED: Sennosides 8.6mg tab ORAL PRN (01:30)
[2018-07-09] MEDS: D5NS 1,000 ML IV SCH ×2 (02:24→15:34)
[2018-07-09 04:00] VITALS: BP 150/45
[2018-07-09 05:58] LABS: BASOPHILS % (AUTO) 1.4 % (0.0-2.0); EOSINOPHILS % (AUTO) 2.4 % (0.0-3.0); HEMATOCRIT 38.1 % (37.0-47.0); HEMOGLOBIN 13.1 G/DL (12.0-16.0); LYMPHOCYTES % (AUTO) 23.4 % (20.0-45.0); MEAN CORPUSCULAR VOLUME 78 FL (80-99); MONOCYTES % (AUTO) 8.6 % (1.0-10.0); NEUTROPHILS % (AUTO) 64.3 % (45.0-75.0); PLATELET COUNT 256 K/UL (150-450); RED CELL DISTRIBUTION WIDTH 11.9 % (11.6-14.8); WHITE BLOOD COUNT 8.4 K/UL (4.8-10.8)
[2018-07-09 06:35] LABS: ALANINE AMINOTRANSFERASE 30 U/L (12-78); ALBUMIN 3.5 G/DL (3.4-5.0); ALKALINE PHOSPHATASE 70 U/L (46-116); ANION GAP 12 mmol/L (5-15); ASPARTATE AMINO TRANSFERASE 37 U/L (15-37); BILIRUBIN,TOTAL 0.5 MG/DL (0.2-1.0); BLOOD UREA NITROGEN 3 mg/dL (7-18); CALCIUM 9.2 MG/DL (8.5-10.1); CARBON DIOXIDE 21 MMOL/L (21-32); CHLORIDE 95 MMOL/L (98-107); CREATININE 0.6 MG/DL (0.55-1.30); PHOSPHORUS 4.4 MG/DL (2.5-4.9); POTASSIUM 3.1 MMOL/L (3.5-5.1); SODIUM 128 MMOL/L (136-145)
[2018-07-09 08:00] VITALS: BP 148/92
[2018-07-09] MEDS ORDERED: Lisinopril 10mg tab ORAL SCH (09:00)
[2018-07-09] MEDS: Aspirin Baby 81mg ORAL SCH (09:26)
[2018-07-09] MEDS: Metoprolol Tartrate 50mg tab ORAL SCH ×2 (09:27→22:00)
[2018-07-09] MEDS: Nitroglycerin Patch 0.4mg TDERMAL SCH (09:29)
[2018-07-09] MEDS: Heparin 5000 units/ml inj SUBQ SCH ×2 (09:30→21:00)
--- NOTE | 2018-07-09 09:36 | General Progress Note ---
Assessment/Plan Problem List: (1) Hyponatremia ICD Codes: E87.1 - Hypo-osmolality and hyponatremia SNOMED: 47648280 (2) Cannabis abuse ICD Codes: F12.10 - Cannabis abuse, uncomplicated SNOMED: 36120502 (3) NSTEMI (non-ST elevated myocardial infarction) ICD Codes: I21.4 - Non-ST elevation (NSTEMI) myocardial infarction SNOMED: 078363935 Assessment/Plan Severe life threatening hyponatremia possibly related to excessive water consumption -fluid management per nephrology and ICU, patient currently on d5NS - appreciate Nephrology and Pulmonary - ok to monitor in tele - patient has history of non-compliance, will continue to encourage fluid restriction Hypokalemia, improved -Continue to replace with KCl prn and monitor levels. Elevated troponin with EKG changes, demand ischemia from severe hyponatremia -Cardiology following, appreciate reqs - medical management with acie, BB, statin and ASA History of cannabis and alcohol use, no evidence of withdrawal -Continue to monitor Abnormal T4 with normal TSH, -Continue to monitor for evidence of hypothyroidism Brain MRI shows hyperintensity in the pituitary blood vs teratoma ? - f/u pituitary studies Psyche - appreciate Pscyhe reqs by Dr. Reynolds, patient does not have capacity Generalized weakness - PT OT DVT proph - heparin SQ Code status: FULL Subjective Date patient seen: Jul 09, 2018 Time patient seen: 09:00 ROS Limited/Unobtainable: No Allergies: Coded Allergies: CODEINE (Verified Allergy, Unknown, 07/07/18) Subjective patient denies nausea, vomiting, fevers and chills. Per nursing staff, patient continues to be non compliant and drinks more water than allowed by her restriction. Objective Last 24 Hour Vital Signs Date Time Temp Pulse Resp B/P (MAP) Pulse Ox O2 Delivery O2 Flow Rate FiO2 07/09/18 08:00 98.2 92 16 148/92 (110) 96 07/09/18 04:00 87 07/09/18 04:00 97.8 86 17 150/45 (80) 98 07/09/18 00:00 64 07/09/18 00:00 97.4 73 17 142/80 (100) 96 07/08/18 22:04 68 110/68 07/08/18 20:00 Room Air 07/08/18 20:00 70 10/29/18 20:00 97.2 68 16 110/68 (82) 99 07/08/18 17:00 97.5 76 20 147/87 (107) 99 07/08/18 16:00 Room Air 07/08/18 15:00 71 18 139/83 (101) 100 07/08/18 14:00 62 15 135/77 (96) 99 07/08/18 12:00 62 07/08/18 12:00 63 17 104/66 (79) 99 07/08/18 12:00 Room Air 07/08/18 11:00 73 17 130/80 (97) 100 07/08/18 10:00 145/95 07/08/18 10:00 96 17 140/80 (100) 99 07/08/18 09:59 103 145/95 07/08/18 09:59 103 145/95 07/08/18 09:58 145/95 Intake and Output 07/08/18 07/09/18 19:00 07:00 Intake Total 24 ml Output Total 1070 ml 0 ml Balance -1046 ml 0 ml Intake Oral 24 ml Output Urine Total 1070 ml 0 ml Stool Total 0 ml Laboratory Tests 07/08/18 09:45: Erythrocyte Sedimentation Rate 125H, C-Reactive Protein, Quantitative 7.5H, Rheumatoid Factor Screen [Pending], Cyclic Citrullinated Peptide IgG Ab [Pending ], Anti-Nuclear Antibody Screen [Pending], c-ANCA Titer [Pending], p-ANCA Titer [Pending], Hepatitis A IgM Antibody [Pending], Hepatitis B Surface Antigen [ Pending], Hepatitis B Core IgM Antibody [Pending], Hepatitis C Antibody [Pending ], HIV (1&2) Antibody Rapid Negative 07/09/18 05:48: White Blood Count 8.4, Red Blood Count 4.90, Hemoglobin 13.1, Hematocrit 38.1, Mean Corpuscular Volume 78L, Mean Corpuscular Hemoglobin 26.7L, Mean Corpuscular Hemoglobin Concent 34.3, Red Cell Distribution Width 11.9, Platelet Count 256, Mean Platelet Volume 7.9, Neutrophils (%) (Auto) 64.3, Lymphocytes (% ) (Auto) 23.4, Monocytes (%) (Auto) 8.6, Eosinophils (%) (Auto) 2.4, Basophils ( %) (Auto) 1.4, Sodium Level 128L, Potassium Level 3.1L, Chloride Level 95L, Carbon Dioxide Level 21, Anion Gap 12, Blood Urea Nitrogen 3L, Creatinine 0.6, Estimat Glomerular Filtration Rate > 60, Glucose Level 80, Uric Acid 4.2, Calcium Level 9.2, Phosphorus Level 4.4, Magnesium Level 1.5L, Total Bilirubin 0.5, Aspartate Amino Transf (AST/SGOT) 37, Alanine Aminotransferase (ALT/SGPT) 30, Alkaline Phosphatase 70, Pro-B-Type Natriuretic Peptide 441H, Total Protein 6.9, Albumin 3.5, Globulin 3.4, Albumin/Globulin Ratio 1.0 Height (Feet): 5 Height (Inches): 6.00 Weight (Pounds): 148 General Appearance: WD/WN, no apparent distress, alert EENT: PERRL/EOMI, normal ENT inspection, TMs normal Neck: non-tender, normal alignment, supple, normal inspection Cardiovascular: normal peripheral pulses, normal rate, regular rhythm, regularly irregular, no gallop/murmur, no JVD Respiratory/Chest: chest wall non-tender, lungs clear, normal breath sounds, no respiratory distress, no accessory muscle use Abdomen: normal bowel sounds, non tender, soft, no organomegaly, no mass, abnormal bowel sounds Extremities: normal range of motion, non-tender, normal inspection, no calf tenderness, other - 4/5 muscle strength with questioned effort Neurologic: alert, oriented x 3, responsive, other - 4/5 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
[2018-07-09] MEDS ORDERED: Gadavist 7.5mMol/7.5ml vial IV PRN (09:45)
[2018-07-09 12:00] VITALS: BP 132/78
--- NOTE | 2018-07-09 12:42 | Nephrology Progress Note ---
Assessment/Plan Problem List: (1) Hyponatremia (2) Hypothyroid (3) NSTEMI (non-ST elevated myocardial infarction) (4) Hypokalemia Assessment Severe Hyponatremia : ? Depletional ? SIADH HypoKalemia Low MCV elevated troponin h/o HypoThyroidism Plan PATIENT ADVISED TO STOP DRINKING SO MUCH WATER ! PO fluid restriction 3% Saline K IV Mag IV Nitro ,asa, betablocker per orders Dc higgins Subjective ROS Limited/Unobtainable: No Constitutional: Reports: malaise Objective Objective Last 24 Hour Vital Signs Date Time Temp Pulse Resp B/P (MAP) Pulse Ox O2 Delivery O2 Flow Rate FiO2 07/09/18 09:29 148/92 07/09/18 09:28 92 148/92 07/09/18 09:27 92 148/92 07/09/18 09:27 148/92 07/09/18 08:00 98.2 92 16 148/92 (110) 96 07/09/18 04:00 87 07/09/18 04:00 97.8 86 17 150/45 (80) 98 07/09/18 00:00 64 07/09/18 00:00 97.4 73 17 142/80 (100) 96 07/08/18 22:04 68 110/68 07/08/18 20:00 Room Air 07/08/18 20:00 70 07/08/18 20:00 97.2 68 16 110/68 (82) 99 07/08/18 17:00 97.5 76 20 147/87 (107) 99 07/08/18 16:00 Room Air 07/08/18 15:00 71 18 139/83 (101) 100 07/08/18 14:00 62 15 135/77 (96) 99 Intake and Output 07/08/18 07/09/18 18:59 06:59 Intake Total 24 ml Output Total 1180 ml 0 ml Balance -1156 ml 0 ml Intake Oral 24 ml Output Urine Total 1180 ml 0 ml Stool Total 0 ml Laboratory Tests 07/09/18 05:48: White Blood Count 8.4, Red Blood Count 4.90, Hemoglobin 13.1, Hematocrit 38.1, Mean Corpuscular Volume 78L, Mean Corpuscular Hemoglobin 26.7L, Mean Corpuscular Hemoglobin Concent 34.3, Red Cell Distribution Width 11.9, Platelet Count 256, Mean Platelet Volume 7.9, Neutrophils (%) (Auto) 64.3, Lymphocytes (% ) (Auto) 23.4, Monocytes (%) (Auto) 8.6, Eosinophils (%) (Auto) 2.4, Basophils ( %) (Auto) 1.4, Sodium Level 128L, Potassium Level 3.1L, Chloride Level 95L, Carbon Dioxide Level 21, Anion Gap 12, Blood Urea Nitrogen 3L, Creatinine 0.6, Estimat Glomerular Filtration Rate > 60, Glucose Level 80, Uric Acid 4.2, Calcium Level 9.2, Phosphorus Level 4.4, Magnesium Level 1.5L, Total Bilirubin 0.5, Aspartate Amino Transf (AST/SGOT) 37, Alanine Aminotransferase (ALT/SGPT) 30, Alkaline Phosphatase 70, Pro-B-Type Natriuretic Peptide 441H, Total Protein 6.9, Albumin 3.5, Globulin 3.4, Albumin/Globulin Ratio 1.0, Follicle Stimulating Hormone [Pending], Luteinizing Hormone [Pending], Prolactin [Pending ], Insulin-like Growth Factor I [Pending], Adrenocorticotropic Hormone [Pending] Height (Feet): 5 Height (Inches): 6.00 Weight (Pounds): 148 General Appearance: no apparent distress Objective no change Hesham Leonard MD Jul 09, 2018 12:42
[2018-07-09] MEDS: Magnesium Oxide 400mg tab ORAL SCH ×2 (13:21→17:43)
[2018-07-09] MEDS ORDERED: Tubing IV Secondary IV ONE ×2 (13:59→15:14)
[2018-07-09] MEDS ORDERED: NS 275ml ONE (13:59)
--- NOTE | 2018-07-09 14:07 | Cardiology Report ---
APPROVED REPORT EXAM: Two-dimensional and M-mode echocardiogram with Doppler and color Doppler. INDICATION Chest Pain M-Mode DIMENSIONS IVSd1.2 (0.7-1.1cm)Left Atrium (MM)3.6 (1.6-4.0cm) LVDd4.3 (3.5-5.6cm)Aortic Root3.3 (2.0-3.7cm) PWd1.1 (0.7-1.1cm)Aortic Cusp Exc.1.7 (1.5-2.0cm) IVSs1.7 cm LVDs2.9 (2.5-4.0cm) PWs1.5 cm Normal left ventricular chamber size, systolic function and wall motion. Left ventricular ejection fraction estimated to be 60-65 %. Mild left ventricular hypertrophy by 2-D. No evidence of pericardial effusion. All other cardiac chamber sizes are within normal limits. Focal aortic valve sclerosis with adequate cusp excursion. Thickened mitral valve leaflets with normal excursion. Mildly Mitral annulus and aortic root calcification. Pulmonic valve not well visualized. Normal tricuspid valve structure. IVC at normal size with physiological collapse . A color flow and spectral Doppler study was performed and revealed: No aortic regurgitation. Trace mitral regurgitation. Mitral diastolic velocities suggest reduced left ventricular relaxation c/w mild LV diastolic dysfunction (Grade I ). No tricuspid regurgitation. Tricuspid systolic velocities suggests peak right ventricular systolic pressure of 16 mmHg.
--- NOTE | 2018-07-09 15:13 | Cardiac Electrophysiology PN ---
Assessment/Plan Assessment/Plan 1. [id number] myocardial infarction, abnormal EKG, elevated troponin, and chest pain. The patient currently is chest pain-free, however, with abnormal EKG, it could be due to profound hypokalemia, potassium 2.6. Has severe hyponatremia. Continue aspirin, beta-saeid, and anticoagulation Echocardiogram showed Nl EF 2. Severe hypokalemia. Potassium was replaced. 3. Hypothyroidism. 4. Severe hyponatremia. DW RN Subjective Subjective No new events out of ICU Objective Last 24 Hour Vital Signs Date Time Temp Pulse Resp B/P (MAP) Pulse Ox O2 Delivery O2 Flow Rate FiO2 07/09/18 12:00 98.4 73 16 132/78 (96) 100 07/09/18 09:29 148/92 07/09/18 09:28 92 148/92 07/09/18 09:27 92 148/92 07/09/18 09:27 148/92 07/09/18 09:00 Room Air 07/09/18 08:00 98.2 92 16 148/92 (110) 96 07/09/18 04:00 87 07/09/18 04:00 97.8 86 17 150/45 (80) 98 07/09/18 00:00 64 07/09/18 00:00 97.4 73 17 142/80 (100) 96 07/08/18 22:04 68 110/68 07/08/18 20:00 Room Air 07/08/18 20:00 70 07/08/18 20:00 97.2 68 16 110/68 (82) 99 07/08/18 17:00 97.5 76 20 147/87 (107) 99 07/08/18 16:00 Room Air Intake and Output 07/08/18 07/09/18 19:00 07:00 Intake Total 24 ml Output Total 1070 ml 0 ml Balance -1046 ml 0 ml Intake Oral 24 ml Output Urine Total 1070 ml 0 ml Stool Total 0 ml Laboratory Tests Test 07/09/18 05:48 White Blood Count 8.4 K/UL (4.8-10.8) Red Blood Count 4.90 M/UL (4.20-5.40) Hemoglobin 13.1 G/DL (12.0-16.0) Hematocrit 38.1 % (37.0-47.0) Mean Corpuscular Volume 78 FL (80-99) L Mean Corpuscular Hemoglobin 26.7 PG (27.0-31.0) L Mean Corpuscular Hemoglobin Concent 34.3 G/DL (32.0-36.0) Red Cell Distribution Width 11.9 % (11.6-14.8) Platelet Count 256 K/UL (150-450) Mean Platelet Volume 7.9 FL (6.5-10.1) Neutrophils (%) (Auto) 64.3 % (45.0-75.0) Lymphocytes (%) (Auto) 23.4 % (20.0-45.0) Monocytes (%) (Auto) 8.6 % (1.0-10.0) Eosinophils (%) (Auto) 2.4 % (0.0-3.0) Basophils (%) (Auto) 1.4 % (0.0-2.0) Sodium Level 128 MMOL/L (136-145) L Potassium Level 3.1 MMOL/L (3.5-5.1) L Chloride Level 95 MMOL/L (98-107) L Carbon Dioxide Level 21 MMOL/L (21-32) Anion Gap 12 mmol/L (5-15) Blood Urea Nitrogen 3 mg/dL (7-18) L Creatinine 0.6 MG/DL (0.55-1.30) Estimat Glomerular Filtration Rate > 60 mL/min (>60) Glucose Level 80 MG/DL (74-106) Uric Acid 4.2 MG/DL (2.6-7.2) Calcium Level 9.2 MG/DL (8.5-10.1) Phosphorus Level 4.4 MG/DL (2.5-4.9) Magnesium Level 1.5 MG/DL (1.8-2.4) L Total Bilirubin 0.5 MG/DL (0.2-1.0) Aspartate Amino Transf (AST/SGOT) 37 U/L (15-37) Alanine Aminotransferase (ALT/SGPT) 30 U/L (12-78) Alkaline Phosphatase 70 U/L (46-116) Pro-B-Type Natriuretic Peptide 441 pg/mL (0-125) H Total Protein 6.9 G/DL (6.4-8.2) Albumin 3.5 G/DL (3.4-5.0) Globulin 3.4 g/dL Albumin/Globulin Ratio 1.0 (1.0-2.7) Follicle Stimulating Hormone Pending Luteinizing Hormone Pending Prolactin Pending Insulin-like Growth Factor I Pending Adrenocorticotropic Hormone Pending Objective HEAD AND NECK: No JVD. LUNGS: Clear. CARDIOVASCULAR: Regular S1 and S2 with no gallop or murmur. ABDOMEN: Soft. EXTREMITIES: No pitting edema. Geovanni Navas MD Jul 09, 2018 15:13
[2018-07-09] MEDS ORDERED: D5NS 1000ml IV ONE (15:14)
[2018-07-09 16:00] VITALS: BP 133/78
--- NOTE | 2018-07-09 16:43 | Pulmonology Progress Note ---
Assessment/Plan Problems: (1) Pituitary mass (2) Hyponatremia (3) Hypothyroid (4) Pulmonary hypertension Assessment/Plan IVF per renal, off 3% Free water restriction MRI brain noted, needs neuro eval for possible pituitary mass PH W/U: LFT's reviewed, HIV negative, serologies pending, VQ neg Aspiration precautions DVT Px: Hep SQ F/U cards recs Subjective Allergies: Coded Allergies: CODEINE (Verified Allergy, Unknown, 07/07/18) Subjective TTF, Na 128, AFVSS, stable on RA No cough, no SOB, no FC, no CP MRI BRAIN: "Heterogeneous enlargement of the pituitary gland likely on the basis of underlying tumor. T1 hyperintensity within the tumor likely represent subacute blood as would be found in a pituitary hemorrhage (pituitary apoplexy). Differential diagnosis includes pituitary teratoma/dermoid. Please correlate clinically. Mild generalized atrophy of the brain No evidence of acute CVA, mass effect or edema." Objective Last 24 Hour Vital Signs Date Time Temp Pulse Resp B/P (MAP) Pulse Ox O2 Delivery O2 Flow Rate FiO2 07/09/18 12:00 68 07/09/18 12:00 98.4 73 16 132/78 (96) 100 07/09/18 09:29 148/92 07/09/18 09:28 92 148/92 07/09/18 09:27 92 148/92 07/09/18 09:27 148/92 07/09/18 09:00 Room Air 07/09/18 08:00 98.2 92 16 148/92 (110) 96 07/09/18 08:00 96 07/09/18 04:00 87 07/09/18 04:00 97.8 86 17 150/45 (80) 98 07/09/18 00:00 64 07/09/18 00:00 97.4 73 17 142/80 (100) 96 07/08/18 22:04 68 110/68 07/08/18 20:00 Room Air 07/08/18 20:00 70 07/08/18 20:00 97.2 68 16 110/68 (82) 99 07/08/18 17:00 97.5 76 20 147/87 (107) 99 Intake and Output 07/08/18 07/09/18 19:00 07:00 Intake Total 24 ml Output Total 1070 ml 0 ml Balance -1046 ml 0 ml Intake Oral 24 ml Output Urine Total 1070 ml 0 ml Stool Total 0 ml General Appearance: WD/WN, no acute distress HEENT: normocephalic, atraumatic, anicteric, mucous membranes moist Respiratory/Chest: chest wall non-tender, lungs clear, normal breath sounds, no respiratory distress, no accessory muscle use Cardiovascular: normal peripheral pulses, normal rate, regular rhythm Abdomen: normal bowel sounds, soft, non tender, no organomegaly, non distended , no mass Extremities: no cyanosis, no clubbing, no edema Laboratory Tests 07/09/18 05:48: White Blood Count 8.4, Red Blood Count 4.90, Hemoglobin 13.1, Hematocrit 38.1, Mean Corpuscular Volume 78L, Mean Corpuscular Hemoglobin 26.7L, Mean Corpuscular Hemoglobin Concent 34.3, Red Cell Distribution Width 11.9, Platelet Count 256, Mean Platelet Volume 7.9, Neutrophils (%) (Auto) 64.3, Lymphocytes (% ) (Auto) 23.4, Monocytes (%) (Auto) 8.6, Eosinophils (%) (Auto) 2.4, Basophils ( %) (Auto) 1.4, Sodium Level 128L, Potassium Level 3.1L, Chloride Level 95L, Carbon Dioxide Level 21, Anion Gap 12, Blood Urea Nitrogen 3L, Creatinine 0.6, Estimat Glomerular Filtration Rate > 60, Glucose Level 80, Uric Acid 4.2, Calcium Level 9.2, Phosphorus Level 4.4, Magnesium Level 1.5L, Total Bilirubin 0.5, Aspartate Amino Transf (AST/SGOT) 37, Alanine Aminotransferase (ALT/SGPT) 30, Alkaline Phosphatase 70, Pro-B-Type Natriuretic Peptide 441H, Total Protein 6.9, Albumin 3.5, Globulin 3.4, Albumin/Globulin Ratio 1.0, Follicle Stimulating Hormone [Pending], Luteinizing Hormone [Pending], Prolactin [Pending ], Insulin-like Growth Factor I [Pending], Adrenocorticotropic Hormone [Pending] Current Medications Medications (Trade) Dose Ordered Sig/Richard Route PRN Reason Start Time Stop Time Status Last Admin Dose Admin Acetaminophen (Tylenol) 650 mg Q6H PRN ORAL Mild Pain/Temp > 100.5 07/08/18 17:12 08/05/18 17:11 Amlodipine Besylate (Norvasc) 2.5 mg DAILY ORAL 07/09/18 09:00 08/08/18 08:59 07/09/18 09:28 Aspirin (ASA) 162 mg DAILY ORAL 07/09/18 09:00 08/06/18 08:59 07/09/18 09:26 Atorvastatin Calcium (Lipitor) 40 mg BEDTIME ORAL 07/09/18 21:00 08/08/18 20:59 Dextrose (Dextrose 50%) 25 ml Q30M PRN IV Hypoglycemia 07/08/18 17:11 08/05/18 17:10 Dextrose (Dextrose 50%) 50 ml Q30M PRN IV Hypoglycemia 07/08/18 17:11 08/05/18 17:10 Dextrose/Sodium Chloride 1,000 ml @ 75 mls/hr [id number] IV 07/09/18 02:24 08/08/18 02:23 07/09/18 15:34 Famotidine (Pepcid) 20 mg BID ORAL 07/08/18 18:00 08/05/18 17:59 07/09/18 09:27 Furosemide (Lasix) 20 mg DAILY IV 07/10/18 09:00 08/09/18 08:59 Heparin Sodium (Porcine) (Heparin 5000 units/ml) 5,000 units EVERY 12 HOURS SUBQ 07/08/18 21:00 08/05/18 20:59 07/09/18 09:30 Hydralazine HCl (Apresoline) 10 mg Q4H PRN IV For High Blood Pressure 07/08/18 17:12 08/07/18 17:11 Lisinopril (Zestril) 10 mg BID ORAL 07/09/18 18:00 08/07/18 08:59 Magnesium Oxide (Mag-Ox 400mg) 400 mg THREE TIMES A DAY ORAL 07/09/18 13:00 08/08/18 12:59 07/09/18 13:21 Metoprolol Tartrate (Lopressor) 50 mg Q12HR ORAL 07/08/18 21:00 08/05/18 20:59 07/09/18 09:27 Nitroglycerin (Ntg) 1 patch DAILY TDERMAL 07/09/18 09:00 08/05/18 12:59 07/09/18 09:29 Potassium Chloride (K-Dur) 40 meq TWICE A DAY ORAL 07/09/18 18:00 08/08/18 17:59 Sennosides (Senokot) 2 tab DAILY PRN ORAL Constipation 07/09/18 01:30 08/08/18 01:29 07/09/18 09:28 Richar De Leon MD Jul 09, 2018 16:43
[2018-07-09] MEDS: Lisinopril 10mg tab ORAL SCH (17:43)
[2018-07-09 20:00] VITALS: BP 115/89
[2018-07-09] MEDS ORDERED: Atorvastatin 20mg tab ORAL SCH (21:00)
[2018-07-10] VITALS: BP 126/78
[2018-07-10] MEDS: D5NS 1,000 ML IV SCH (01:58)
[2018-07-10 04:00] VITALS: BP 143/89
--- NOTE | 2018-07-10 06:08 | Consultation ---
Consult Note Consult Note Hematology Onc Consult REQ MD: Nara RFC: coagulopathy, pituitary mass DOS: 07/10/18 HPI 62 year old woman with no known medical history, does not take any medications nor follow up with physician. Denies smoking cigarettes by uses cannabis and drinks alcohol. She presented to the ED with general weakness, malaise, fall. No chest pain, palpitations, syncope. In ED she was noted to be severely hyponatremic with sodium 105 along with hypokalemia of 2.6. She was started on hypertonic saline and referred for admission. Na was elev, noted to ahve high ptt and a pituitary mass v blood Allergies: No Known Allergies (Unverified , 07/06/18) Limited by: medical condition History Provided By: Patient, EMS Healthcare decision maker Family History Family History: Patient reports no known family medical history. Social History Social History: (1) Cannabis abuse Review of Systems Constitutional: Denies: chills, fever Eye: Denies: eye pain, blurred vision ENT: Denies: ear pain, ear discharge Respiratory: Denies: cough, shortness of breath Cardiovascular: Denies: chest pain, palpitations Gastrointestinal: Denies: abdominal pain Genitourinary: Denies: discharge, dysuria Musculoskeletal: Denies: back pain, joint pain Skin: Denies: rash, change in hair/nails Psychiatric: Denies: anxiety, depressed feelings Neurological: Denies: headache, numbness Endocrine: Denies: excessive sweating, flushing Hematologic/Lymphatic: Denies: anemia, blood clots PE: GEN: no apparent distress, alert HEENT: normocephalic, atraumatic, anicteric Neck: normal alignment, supple, normal inspection Respiratory/Chest: lungs clear, normal breath sounds, no respiratory distress Cardiovascular/Chest: normal peripheral pulses, normal rate, regular rhythm, no gallop/murmur Abdomen: normal bowel sounds, non tender, soft Extremities: normal range of motion, non-tender Skin Exam: normal pigmentation, warm/dry 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, no motor/sensory deficits Last 24 Hour Vital Signs Last 24 Hour Vital Signs Date Time Temp Pulse Resp B/P (MAP) Pulse Ox O2 Delivery O2 Flow Rate FiO2 07/10/18 04:00 99.1 81 19 143/89 (107) 97 07/10/18 04:00 74 07/10/18 00:00 71 07/10/18 00:00 98.4 73 18 126/78 (94) 95 07/09/18 22:52 98.6 07/09/18 22:00 90 115/89 07/09/18 20:00 100.3 90 19 115/89 (98) 98 07/09/18 20:00 78 07/09/18 17:43 133/78 07/09/18 16:00 85 07/09/18 16:00 98.4 84 16 133/78 (96) 100 07/09/18 12:00 68 07/09/18 12:00 98.4 73 16 132/78 (96) 100 07/09/18 09:29 148/92 07/09/18 09:28 92 148/92 07/09/18 09:27 92 148/92 07/09/18 09:27 148/92 07/09/18 09:00 Room Air 07/09/18 08:00 98.2 92 16 148/92 (110) 96 07/09/18 08:00 96 Labs reviewed Current Medications Medications (Trade) Dose Ordered Sig/Richard Route PRN Reason Start Time Stop Time Status Last Admin Dose Admin Aspirin (ASA) 162 mg DAILY ORAL 07/07/18 09:00 08/06/18 08:59 Dextrose (Dextrose 50%) 25 ml Q30M PRN IV Hypoglycemia 07/06/18 10:00 08/05/18 09:59 Dextrose (Dextrose 50%) 50 ml Q30M PRN IV Hypoglycemia 07/06/18 10:00 08/05/18 09:59 Famotidine (Pepcid) 20 mg BID ORAL 07/06/18 18:00 08/05/18 17:59 Magnesium Sulfate 100 ml @ 100 mls/hr Q1H IVPB 07/06/18 14:00 07/06/18 17:59 Metoprolol Tartrate (Lopressor) 25 mg Q12HR ORAL 07/06/18 21:00 08/05/18 20:59 Nitroglycerin (Ntg) 1 patch DAILY TDERMAL 07/06/18 13:00 08/05/18 12:59 Potassium Chloride 100 ml @ 100 mls/hr Q1HR IVPB 07/06/18 14:00 07/06/18 19:59 Sodium Chloride 250 ml @ 30 mls/hr ONCE ONCE IV 07/06/18 09:15 07/06/18 17:34 07/06/18 09:52 Sodium Chloride 500 ml @ 30 mls/hr ONCE ONCE IV 07/06/18 13:30 07/07/18 06:09 Assessment/Plan # Coagulopathy -- she has a soley elevated ptt, will need to rule out factor deficiency v inhibitor --> PTT mixing study has been ordered --> no hx of significant liver disease # Pituitary mass v blood products on MRI -- imaging has been reviewed --> obtain tsh, prolactin level, growth hormone and 24-hour cortisol level --> consider endo or neuro eval as needed # Hyponatremia of unclear etiology, admit to ICU for hypertonic saline infusion and q4h BMP --> Seizure precautions, fall precautions. --> Appreciate Dr. Leonard who will help manage electrolytes. # Hypokalemia, replaced with IV and oral KCl, continue to monitor potassium level. --> appreciate renal recs # Elevated troponin without EKG changes, doubt ACS, suspect demand ischemia. Continue ASA and metoprolol. --> appreciate cards recs # Cannabis and alcohol use, counseling given on the adverse effects of substance abuse. --> currently is off these Greatly appreciate consultation! Randy Payton MD Jul 10, 2018 06:08
[2018-07-10 06:47] LABS: BASOPHILS % (AUTO) 1.1 % (0.0-2.0); EOSINOPHILS % (AUTO) 1.6 % (0.0-3.0); HEMATOCRIT 35.1 % (37.0-47.0); HEMOGLOBIN 12.1 G/DL (12.0-16.0); LYMPHOCYTES % (AUTO) 24.7 % (20.0-45.0); MEAN CORPUSCULAR VOLUME 78 FL (80-99); MONOCYTES % (AUTO) 11.2 % (1.0-10.0); NEUTROPHILS % (AUTO) 61.5 % (45.0-75.0); PLATELET COUNT 266 K/UL (150-450); RED BLOOD COUNT 4.52 M/UL (4.20-5.40); RED CELL DISTRIBUTION WIDTH 11.9 % (11.6-14.8)
[2018-07-10 06:58] LABS: ALANINE AMINOTRANSFERASE 34 U/L (12-78); ALBUMIN 2.9 G/DL (3.4-5.0); ALKALINE PHOSPHATASE 73 U/L (46-116); ASPARTATE AMINO TRANSFERASE 58 U/L (15-37); BILIRUBIN,DIRECT 0.1 MG/DL (0.0-0.3); BILIRUBIN,TOTAL 0.6 MG/DL (0.2-1.0)
[2018-07-10 06:59] LABS: ANION GAP 9 mmol/L (5-15); BLOOD UREA NITROGEN 5 mg/dL (7-18); CALCIUM 8.9 MG/DL (8.5-10.1); CARBON DIOXIDE 21 MMOL/L (21-32); CHLORIDE 95 MMOL/L (98-107); CREATININE 0.7 MG/DL (0.55-1.30); PHOSPHORUS 3.6 MG/DL (2.5-4.9); POTASSIUM 3.8 MMOL/L (3.5-5.1); SODIUM 125 MMOL/L (136-145)
[2018-07-10 08:00] VITALS: BP 129/75
[2018-07-10] MEDS: Lisinopril 10mg tab ORAL SCH ×2 (08:13→17:14)
[2018-07-10] MEDS: Nitroglycerin Patch 0.4mg TDERMAL SCH (08:13)
[2018-07-10] MEDS: Metoprolol Tartrate 50mg tab ORAL SCH ×2 (08:14→21:32)
[2018-07-10] MEDS: Magnesium Oxide 400mg tab ORAL SCH ×3 (08:14→17:14)
[2018-07-10] MEDS: Aspirin Baby 81mg ORAL SCH (08:14)
[2018-07-10] MEDS: Heparin 5000 units/ml inj SUBQ SCH ×2 (08:16→21:00)
--- NOTE | 2018-07-10 09:42 | General Progress Note ---
Assessment/Plan Problem List: (1) Hyponatremia ICD Codes: E87.1 - Hypo-osmolality and hyponatremia SNOMED: 08869075 (2) Pituitary mass ICD Codes: E23.7 - Disorder of pituitary gland, unspecified SNOMED: 166565653 (3) Cannabis abuse ICD Codes: F12.10 - Cannabis abuse, uncomplicated SNOMED: 50244765 (4) NSTEMI (non-ST elevated myocardial infarction) ICD Codes: I21.4 - Non-ST elevation (NSTEMI) myocardial infarction SNOMED: 056282423 (5) Pulmonary hypertension ICD Codes: I27.20 - Pulmonary hypertension, unspecified SNOMED: 56307928 Assessment/Plan #Severe life threatening hyponatremia possibly related to excessive water consumption -fluid management per nephrology and ICU - appreciate Nephrology - ok to monitor in tele - patient has history of non-compliance, will continue to encourage fluid restriction #Pituitary Mass report impression: Heterogeneous enlargement of the pituitary gland likely on the basis of underlying tumor. T1 hyperintensity within the tumor likely represent subacute blood as would be found in a pituitary hemorrhage (pituitary apoplexy). Differential diagnosis includes pituitary teratoma/dermoid. Please correlate clinically. Mild generalized atrophy of the brain No evidence of acute CVA, mass effect or edema. - imaging reviewed by Dr. Chan who states it does not appear to be a hemorrhage although there are old blood products noticeable; likely a pituitary adenoma. Per Rocio, patient ok for heparin SQ - Consult Dr Durbin for pituitary mass - Prolactin 6.8, FSH and LSH WNL, pending other pituitary studies - patient will need optho exam Pulmonary HTN - appreciate Dr. Haley plata - serologies negative #Hypokalemia, improved -Continue to replace with KCl prn and monitor levels. #Elevated troponin with EKG changes, demand ischemia from severe hyponatremia -Cardiology following, appreciate reqs - medical management with acie, BB, statin and ASA #History of cannabis and alcohol use, no evidence of withdrawal -Continue to monitor #Abnormal T4 with normal TSH, -Continue to monitor for evidence of hypothyroidism #Psyche - appreciate Pscyhe reqs by Dr. Reynolds, patient does not have capacity #Generalized weakness - PT OT #DVT proph - heparin SQ #Code status: FULL Subjective Date patient seen: Jul 10, 2018 Allergies: Coded Allergies: CODEINE (Verified Allergy, Unknown, 07/07/18) Subjective question patients comprehension and insight. She states she lives at home with her family including her mother. Re MRI findings (see below) Patient states she has noticed her vision becoming worse. Denies headache. Denies galactorrhea to breast tenderness. Objective Last 24 Hour Vital Signs Date Time Temp Pulse Resp B/P (MAP) Pulse Ox O2 Delivery O2 Flow Rate FiO2 07/10/18 08:50 Room Air 07/10/18 08:14 85 129/75 07/10/18 08:13 129/75 07/10/18 08:13 129/75 07/10/18 08:13 85 129/75 07/10/18 08:00 91 07/10/18 08:00 99.2 85 18 129/75 (93) 99 07/10/18 04:00 99.1 81 19 143/89 (107) 97 07/10/18 04:00 74 07/10/18 00:00 71 07/10/18 00:00 98.4 73 18 126/78 (94) 95 07/09/18 22:52 98.6 07/09/18 22:00 90 115/89 07/09/18 20:00 100.3 90 19 115/89 (98) 98 07/09/18 20:00 78 07/09/18 17:43 133/78 07/09/18 16:00 85 07/09/18 16:00 98.4 84 16 133/78 (96) 100 07/09/18 12:00 68 07/09/18 12:00 98.4 73 16 132/78 (96) 100 Intake and Output 07/09/18 07/10/18 19:00 07:00 Intake Total 1902.5 ml 240 ml Output Total 200 ml 800 ml Balance 1702.5 ml -560 ml Intake Oral 1240 ml 240 ml IV Total 662.5 ml Output Urine Total 200 ml 800 ml # Voids 1 1 # Bowel Movements 3 Laboratory Tests 07/10/18 04:50: White Blood Count 8.0, Red Blood Count 4.52, Hemoglobin 12.1, Hematocrit 35.1L, Mean Corpuscular Volume 78L, Mean Corpuscular Hemoglobin 26.8L, Mean Corpuscular Hemoglobin Concent 34.5, Red Cell Distribution Width 11.9, Platelet Count 266, Mean Platelet Volume 7.1, Neutrophils (%) (Auto) 61.5, Lymphocytes (% ) (Auto) 24.7, Monocytes (%) (Auto) 11.2H, Eosinophils (%) (Auto) 1.6, Basophils (%) (Auto) 1.1, Sodium Level 125L, Potassium Level 3.8, Chloride Level 95L, Carbon Dioxide Level 21, Anion Gap 9, Blood Urea Nitrogen 5L, Creatinine 0.7, Estimat Glomerular Filtration Rate > 60, Glucose Level 93, Calcium Level 8.9, Phosphorus Level 3.6, Magnesium Level 1.9, Total Bilirubin 0.6, Direct Bilirubin 0.1, Aspartate Amino Transf (AST/SGOT) 58H, Alanine Aminotransferase (ALT/SGPT) 34, Alkaline Phosphatase 73, Total Protein 6.2L, Albumin 2.9L 07/10/18 07:30: PTT Mixing Study [Pending], APTT Patient/Control Mix [Pending], Mix PTT Incubation Time [Pending], Mix PTT Normal/Saline 1:1 Immediate [Pending], Thrombin Time Normal Plasma [Pending], Human Growth Hormone [Pending] Height (Feet): 5 Height (Inches): 6.00 Weight (Pounds): 153 General Appearance: WD/WN, no apparent distress, alert EENT: PERRL/EOMI, normal ENT inspection, TMs normal Neck: non-tender, normal alignment, supple, normal inspection Cardiovascular: normal peripheral pulses, normal rate, regular rhythm, regularly irregular, no gallop/murmur, no JVD Respiratory/Chest: chest wall non-tender, lungs clear, normal breath sounds, no respiratory distress, no accessory muscle use, respiratory distress Abdomen: normal bowel sounds, non tender, soft, no organomegaly, no mass, abnormal bowel sounds Extremities: other - 4/5 muscle strength Neurologic: oriented x 3, normal mood/affect Briseyda Henriquez DO Jul 10, 2018 09:41
[2018-07-10] MEDS ORDERED: Heparin 5000 units/ml inj SUBQ SCH (09:45)
[2018-07-10 10:12] LABS: CREATINE KINASE 617 U/L (26-308)
[2018-07-10] MEDS ORDERED: Cortrosyn 0.25mg Inj IVP SCH (11:30)
[2018-07-10] MEDS ORDERED: NaCl 3% 500ml 500 ML IV SCH (11:30)
[2018-07-10 12:00] VITALS: BP 130/82
--- NOTE | 2018-07-10 12:22 | Nephrology Progress Note ---
Assessment/Plan Problem List: (1) Hyponatremia (2) Hypothyroid (3) NSTEMI (non-ST elevated myocardial infarction) (4) Hypokalemia (5) Pituitary mass Assessment Severe Hyponatremia : ? Depletional ? SIADH HypoKalemia Low MCV elevated troponin h/o HypoThyroidism Plan 3% Saline and lasix Endo eval K IV Mag IV Nitro ,asa, betablocker per orders Dc higgins Subjective ROS Limited/Unobtainable: No Constitutional: Reports: malaise Objective Objective Last 24 Hour Vital Signs Date Time Temp Pulse Resp B/P (MAP) Pulse Ox O2 Delivery O2 Flow Rate FiO2 07/10/18 08:50 Room Air 07/10/18 08:14 85 129/75 07/10/18 08:13 129/75 07/10/18 08:13 129/75 07/10/18 08:13 85 129/75 07/10/18 08:00 91 07/10/18 08:00 99.2 85 18 129/75 (93) 99 07/10/18 04:00 99.1 81 19 143/89 (107) 97 07/10/18 04:00 74 07/10/18 00:00 71 07/10/18 00:00 98.4 73 18 126/78 (94) 95 07/09/18 22:52 98.6 07/09/18 22:00 90 115/89 07/09/18 20:00 100.3 90 19 115/89 (98) 98 07/09/18 20:00 78 07/09/18 17:43 133/78 07/09/18 16:00 85 07/09/18 16:00 98.4 84 16 133/78 (96) 100 Intake and Output 07/09/18 07/10/18 19:00 07:00 Intake Total 1902.5 ml 240 ml Output Total 200 ml 800 ml Balance 1702.5 ml -560 ml Intake Oral 1240 ml 240 ml IV Total 662.5 ml Output Urine Total 200 ml 800 ml # Voids 1 1 # Bowel Movements 3 Laboratory Tests 07/10/18 04:50: White Blood Count 8.0, Red Blood Count 4.52, Hemoglobin 12.1, Hematocrit 35.1L, Mean Corpuscular Volume 78L, Mean Corpuscular Hemoglobin 26.8L, Mean Corpuscular Hemoglobin Concent 34.5, Red Cell Distribution Width 11.9, Platelet Count 266, Mean Platelet Volume 7.1, Neutrophils (%) (Auto) 61.5, Lymphocytes (% ) (Auto) 24.7, Monocytes (%) (Auto) 11.2H, Eosinophils (%) (Auto) 1.6, Basophils (%) (Auto) 1.1, Sodium Level 125L, Potassium Level 3.8, Chloride Level 95L, Carbon Dioxide Level 21, Anion Gap 9, Blood Urea Nitrogen 5L, Creatinine 0.7, Estimat Glomerular Filtration Rate > 60, Glucose Level 93, Calcium Level 8.9, Phosphorus Level 3.6, Magnesium Level 1.9, Total Bilirubin 0.6, Direct Bilirubin 0.1, Aspartate Amino Transf (AST/SGOT) 58H, Alanine Aminotransferase (ALT/SGPT) 34, Alkaline Phosphatase 73, Total Creatine Kinase 617H, Total Protein 6.2L, Albumin 2.9L 07/10/18 07:30: PTT Mixing Study [Pending], APTT Patient/Control Mix [Pending], Mix PTT Incubation Time [Pending], Mix PTT Normal/Saline 1:1 Immediate [Pending], Thrombin Time Normal Plasma [Pending], Human Growth Hormone [Pending] 07/10/18 11:20: Cortisol [Pending] Height (Feet): 5 Height (Inches): 6.00 Weight (Pounds): 153 General Appearance: no apparent distress Objective no change Hesham Leonard MD Jul 10, 2018 12:22
--- NOTE | 2018-07-10 13:15 | Pulmonology Progress Note ---
Assessment/Plan Problems: (1) Pituitary mass (2) Hyponatremia (3) Hypothyroid (4) Pulmonary hypertension Assessment/Plan 3% and Lasix per renal Free water restriction Neuro and ENDO w/u PH W/U: LFT's reviewed, HIV negative, serologies pending, VQ neg Aspiration precautions DVT Px: Hep SQ F/U cards recs Subjective Allergies: Coded Allergies: CODEINE (Verified Allergy, Unknown, 07/07/18) Subjective Na 125, AFVSS, stable on RA No cough, no SOB, no FC, no CP Per neuro ok for Hep SQ Objective Last 24 Hour Vital Signs Date Time Temp Pulse Resp B/P (MAP) Pulse Ox O2 Delivery O2 Flow Rate FiO2 07/10/18 12:00 99.3 76 19 130/82 (98) 99 07/10/18 08:50 Room Air 07/10/18 08:14 85 129/75 07/10/18 08:13 129/75 07/10/18 08:13 129/75 07/10/18 08:13 85 129/75 07/10/18 08:00 91 07/10/18 08:00 99.2 85 18 129/75 (93) 99 07/10/18 04:00 99.1 81 19 143/89 (107) 97 07/10/18 04:00 74 07/10/18 00:00 71 07/10/18 00:00 98.4 73 18 126/78 (94) 95 07/09/18 22:52 98.6 07/09/18 22:00 90 115/89 07/09/18 20:00 100.3 90 19 115/89 (98) 98 07/09/18 20:00 78 07/09/18 17:43 133/78 07/09/18 16:00 85 07/09/18 16:00 98.4 84 16 133/78 (96) 100 Intake and Output 07/09/18 07/10/18 19:00 07:00 Intake Total 1902.5 ml 240 ml Output Total 200 ml 800 ml Balance 1702.5 ml -560 ml Intake Oral 1240 ml 240 ml IV Total 662.5 ml Output Urine Total 200 ml 800 ml # Voids 1 1 # Bowel Movements 3 General Appearance: WD/WN, no acute distress HEENT: normocephalic, atraumatic, anicteric, mucous membranes moist Respiratory/Chest: chest wall non-tender, lungs clear, normal breath sounds, no respiratory distress Cardiovascular: normal peripheral pulses, normal rate, regular rhythm Abdomen: normal bowel sounds, soft, non tender, no organomegaly, non distended , no mass Extremities: no cyanosis, no clubbing, no edema Laboratory Tests 07/10/18 04:50: White Blood Count 8.0, Red Blood Count 4.52, Hemoglobin 12.1, Hematocrit 35.1L, Mean Corpuscular Volume 78L, Mean Corpuscular Hemoglobin 26.8L, Mean Corpuscular Hemoglobin Concent 34.5, Red Cell Distribution Width 11.9, Platelet Count 266, Mean Platelet Volume 7.1, Neutrophils (%) (Auto) 61.5, Lymphocytes (% ) (Auto) 24.7, Monocytes (%) (Auto) 11.2H, Eosinophils (%) (Auto) 1.6, Basophils (%) (Auto) 1.1, Sodium Level 125L, Potassium Level 3.8, Chloride Level 95L, Carbon Dioxide Level 21, Anion Gap 9, Blood Urea Nitrogen 5L, Creatinine 0.7, Estimat Glomerular Filtration Rate > 60, Glucose Level 93, Calcium Level 8.9, Phosphorus Level 3.6, Magnesium Level 1.9, Total Bilirubin 0.6, Direct Bilirubin 0.1, Aspartate Amino Transf (AST/SGOT) 58H, Alanine Aminotransferase (ALT/SGPT) 34, Alkaline Phosphatase 73, Total Creatine Kinase 617H, C-Reactive Protein, Quantitative [Pending], Total Protein 6.2L, Albumin 2.9L 07/10/18 07:30: PTT Mixing Study [Pending], APTT Patient/Control Mix [Pending], Mix PTT Incubation Time [Pending], Mix PTT Normal/Saline 1:1 Immediate [Pending], Thrombin Time Normal Plasma [Pending], Human Growth Hormone [Pending] 07/10/18 11:20: Cortisol [Pending] 07/10/18 12:17: Cortisol [Pending] Current Medications Medications (Trade) Dose Ordered Sig/Richard Route PRN Reason Start Time Stop Time Status Last Admin Dose Admin Acetaminophen (Tylenol) 650 mg Q6H PRN ORAL Mild Pain/Temp > 100.5 07/08/18 17:12 08/05/18 17:11 07/09/18 18:56 Amlodipine Besylate (Norvasc) 2.5 mg DAILY ORAL 07/09/18 09:00 08/08/18 08:59 07/10/18 08:13 Aspirin (ASA) 162 mg DAILY ORAL 07/09/18 09:00 08/06/18 08:59 07/10/18 08:14 Cosyntropin (Cortrosyn) 0.25 mg ONCE IVP 07/10/18 11:30 07/10/18 23:59 07/10/18 11:47 Dextrose (Dextrose 50%) 25 ml Q30M PRN IV Hypoglycemia 07/08/18 17:11 08/05/18 17:10 Dextrose (Dextrose 50%) 50 ml Q30M PRN IV Hypoglycemia 07/08/18 17:11 08/05/18 17:10 Furosemide (Lasix) 10 mg EVERY 6 HOURS IV 07/10/18 12:00 08/09/18 11:59 07/10/18 12:59 Heparin Sodium (Porcine) (Heparin 5000 units/ml) 5,000 units EVERY 12 HOURS SUBQ 07/08/18 21:00 08/05/18 20:59 07/09/18 09:30 Lisinopril (Zestril) 10 mg BID ORAL 07/09/18 18:00 08/07/18 08:59 07/10/18 08:13 Magnesium Oxide (Mag-Ox 400mg) 400 mg THREE TIMES A DAY ORAL 07/09/18 13:00 08/08/18 12:59 07/10/18 12:59 Metoprolol Tartrate (Lopressor) 50 mg Q12HR ORAL 07/08/18 21:00 08/05/18 20:59 07/10/18 08:14 Nitroglycerin (Ntg) 1 patch DAILY TDERMAL 07/09/18 09:00 08/05/18 12:59 07/10/18 08:13 Potassium Chloride (K-Dur) 40 meq TWICE A DAY ORAL 07/09/18 18:00 08/08/18 17:59 07/10/18 08:14 Sennosides (Senokot) 2 tab DAILY PRN ORAL Constipation 07/09/18 01:30 08/08/18 01:29 07/09/18 09:28 Sodium Chloride 500 ml @ 30 mls/hr ONCE IV 07/10/18 11:30 07/10/18 23:59 07/10/18 11:56 Richar De Leon MD Jul 10, 2018 13:15
--- NOTE | 2018-07-10 15:10 | Cardiac Electrophysiology PN ---
Assessment/Plan Assessment/Plan 1. Jua-GE-zdzynyatn myocardial infarction with abnormal EKG, elevated troponin, and chest pain. The patient currently is chest pain-free, however, with abnormal EKG, it could be due to profound hypokalemia and hyponatremia. Continue aspirin, beta-saeid. Echo Nl EF 2. Severe hypokalemia. Potassium was replaced. 3. Hypothyroidism. 4. Severe hyponatremia. SWAPNA RN Subjective Subjective On tele. Just had MRI brain. No CP or SOB. Objective Last 24 Hour Vital Signs Date Time Temp Pulse Resp B/P (MAP) Pulse Ox O2 Delivery O2 Flow Rate FiO2 07/10/18 12:00 79 07/10/18 12:00 99.3 76 19 130/82 (98) 99 07/10/18 08:50 Room Air 07/10/18 08:14 85 129/75 07/10/18 08:13 129/75 07/10/18 08:13 129/75 07/10/18 08:13 85 129/75 07/10/18 08:00 91 07/10/18 08:00 99.2 85 18 129/75 (93) 99 07/10/18 04:00 99.1 81 19 143/89 (107) 97 07/10/18 04:00 74 07/10/18 00:00 71 07/10/18 00:00 98.4 73 18 126/78 (94) 95 07/09/18 22:52 98.6 07/09/18 22:00 90 115/89 07/09/18 20:00 100.3 90 19 115/89 (98) 98 07/09/18 20:00 78 07/09/18 17:43 133/78 07/09/18 16:00 85 07/09/18 16:00 98.4 84 16 133/78 (96) 100 Intake and Output 07/09/18 07/10/18 19:00 07:00 Intake Total 1902.5 ml 240 ml Output Total 200 ml 800 ml Balance 1702.5 ml -560 ml Intake Oral 1240 ml 240 ml IV Total 662.5 ml Output Urine Total 200 ml 800 ml # Voids 1 1 # Bowel Movements 3 Laboratory Tests Test 07/10/18 04:50 07/10/18 07:30 07/10/18 11:20 10/31/18 12:17 White Blood Count 8.0 K/UL (4.8-10.8) Red Blood Count 4.52 M/UL (4.20-5.40) Hemoglobin 12.1 G/DL (12.0-16.0) Hematocrit 35.1 % (37.0-47.0) L Mean Corpuscular Volume 78 FL (80-99) L Mean Corpuscular Hemoglobin 26.8 PG (27.0-31.0) L Mean Corpuscular Hemoglobin Concent 34.5 G/DL (32.0-36.0) Red Cell Distribution Width 11.9 % (11.6-14.8) Platelet Count 266 K/UL (150-450) Mean Platelet Volume 7.1 FL (6.5-10.1) Neutrophils (%) (Auto) 61.5 % (45.0-75.0) Lymphocytes (%) (Auto) 24.7 % (20.0-45.0) Monocytes (%) (Auto) 11.2 % (1.0-10.0) H Eosinophils (%) (Auto) 1.6 % (0.0-3.0) Basophils (%) (Auto) 1.1 % (0.0-2.0) Sodium Level 125 MMOL/L (136-145) L Potassium Level 3.8 MMOL/L (3.5-5.1) Chloride Level 95 MMOL/L (98-107) L Carbon Dioxide Level 21 MMOL/L (21-32) Anion Gap 9 mmol/L (5-15) Blood Urea Nitrogen 5 mg/dL (7-18) L Creatinine 0.7 MG/DL (0.55-1.30) Estimat Glomerular Filtration Rate > 60 mL/min (>60) Glucose Level 93 MG/DL (74-106) Calcium Level 8.9 MG/DL (8.5-10.1) Phosphorus Level 3.6 MG/DL (2.5-4.9) Magnesium Level 1.9 MG/DL (1.8-2.4) Total Bilirubin 0.6 MG/DL (0.2-1.0) Direct Bilirubin 0.1 MG/DL (0.0-0.3) Aspartate Amino Transf (AST/SGOT) 58 U/L (15-37) H Alanine Aminotransferase (ALT/SGPT) 34 U/L (12-78) Alkaline Phosphatase 73 U/L (46-116) Total Creatine Kinase 617 U/L (26-308) H C-Reactive Protein, Quantitative 23.4 mg/dL (0.00-0.90) H Total Protein 6.2 G/DL (6.4-8.2) L Albumin 2.9 G/DL (3.4-5.0) L PTT Mixing Study Pending APTT Patient/Control Mix Pending Mix PTT Incubation Time Pending Mix PTT Normal/Saline 1:1 Immediate Pending Thrombin Time Normal Plasma Pending Human Growth Hormone Pending Cortisol Pending Pending Test 07/10/18 13:17 Cortisol Pending Objective HEAD AND NECK: No JVD. LUNGS: Clear. CARDIOVASCULAR: Regular S1 and S2 with no gallop or murmur. ABDOMEN: Soft. EXTREMITIES: No pitting edema. Geovanni Navas MD Jul 10, 2018 15:10
[2018-07-10 16:00] VITALS: BP 131/73
--- NOTE | 2018-07-10 16:09 | Diagnostic Imaging Report ---
Indication: Evaluation of pituitary fossa mass demonstrated on recent brain MRI Technique: Sagittal T1 FLAIR, coronal T2 fat saturated thin cuts, coronal T1 fast spin-echo thin cuts, sagittal T2 fat saturated thin cuts, coronal and sagittal postcontrast T1 fast spin echo thin cuts Comparison: Conventional MRI dated 07/08/2018 Findings: Within the pituitary fossa, there is a mass which measures 18 mm transverse by 13 mm AP by 15 mm craniocaudad. The majority of this demonstrates low T1 signal and high T2 signal. However, the right side demonstrates an irregularly-shaped focus of increased T1 and slightly decreased T2 signal, as well as a tiny focus of T2 signal void which is smaller than but is in the same area of the area of increased T1 signal. There is a thin rim of enhancement of the periphery, but most of the lesion is nonenhancing. The lesion elevates the optic chiasm. There is equivocal slight widening of the sella turcica Impression: Pituitary fossa mass, as described. 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 Main differential considerations are Rathke cleft cyst, craniopharyngioma
[2018-07-10] MEDS ORDERED: Desmopressin Nasal 5ml NASAL SCH (18:00)
[2018-07-10 20:00] VITALS: BP 139/60
[2018-07-11] VITALS (7 sets, daily range): BP systolic 119–149; BP diastolic 77–103
[2018-07-11 05:53] LABS: EOSINOPHILS % (AUTO) 1.2 % (0.0-3.0); HEMATOCRIT 31.9 % (37.0-47.0); HEMOGLOBIN 10.8 G/DL (12.0-16.0); LYMPHOCYTES % (AUTO) 24.1 % (20.0-45.0); MEAN CORPUSCULAR VOLUME 78 FL (80-99); MONOCYTES % (AUTO) 11.3 % (1.0-10.0); NEUTROPHILS % (AUTO) 62.5 % (45.0-75.0); PLATELET COUNT 258 K/UL (150-450); RED BLOOD COUNT 4.08 M/UL (4.20-5.40); WHITE BLOOD COUNT 8.9 K/UL (4.8-10.8)
[2018-07-11 06:23] LABS: ALANINE AMINOTRANSFERASE 34 U/L (12-78); ALBUMIN 2.8 G/DL (3.4-5.0); ALBUMIN/GLOBULIN RATIO 0.8 (1.0-2.7); ALKALINE PHOSPHATASE 72 U/L (46-116); ANION GAP 9 mmol/L (5-15); ASPARTATE AMINO TRANSFERASE 44 U/L (15-37); BILIRUBIN,TOTAL 0.5 MG/DL (0.2-1.0); BLOOD UREA NITROGEN 5 mg/dL (7-18); CALCIUM 8.8 MG/DL (8.5-10.1); CARBON DIOXIDE 21 MMOL/L (21-32); CHLORIDE 98 MMOL/L (98-107); CREATININE 0.9 MG/DL (0.55-1.30); PHOSPHORUS 4.4 MG/DL (2.5-4.9); POTASSIUM 3.8 MMOL/L (3.5-5.1); SODIUM 128 MMOL/L (136-145)
[2018-07-11 06:31] LABS: CREATINE KINASE 471 U/L (26-308)
[2018-07-11] MEDS: Lisinopril 10mg tab ORAL SCH ×2 (08:44→18:00)
[2018-07-11] MEDS: Magnesium Oxide 400mg tab ORAL SCH ×3 (08:44→18:00)
[2018-07-11] MEDS: Aspirin Baby 81mg ORAL SCH (08:44)
[2018-07-11] MEDS: Nitroglycerin Patch 0.4mg TDERMAL SCH (08:45)
[2018-07-11] MEDS: Metoprolol Tartrate 50mg tab ORAL SCH ×2 (08:45→21:01)
[2018-07-11] MEDS: Heparin 5000 units/ml inj SUBQ SCH ×2 (08:46→21:00)
--- NOTE | 2018-07-11 09:17 | Cardiac Electrophysiology PN ---
Assessment/Plan Assessment/Plan 1. [id number] myocardial infarction with abnormal EKG, elevated troponin, and chest pain. The patient currently is chest pain-free, however, with abnormal EKG, it could be due to profound hypokalemia and hyponatremia. Continue aspirin, beta-saeid. Echo Nl EF 2. HTN On Lasix 10 mg iv q 6hr, Lisinopril 10 bid, Norvasc 2.5, Lopressor 50 bid 2. Severe hypokalemia. 3. Hypothyroidism. 4. Severe hyponatremia. 5. Pituitary mass v blood products on MRI Per Dr Retana obtain tsh, prolactin level, growth hormone and 24-hour cortisol level May need transfer to [facility] RN Subjective Subjective On tele. No CP or SOB. Awaiting transfer to [facility] Objective Last 24 Hour Vital Signs Date Time Temp Pulse Resp B/P (MAP) Pulse Ox O2 Delivery O2 Flow Rate FiO2 07/11/18 08:45 144/82 07/11/18 08:45 78 144/82 07/11/18 08:45 78 144/82 07/11/18 08:44 144/82 07/11/18 08:00 97.2 78 18 144/82 (102) 97 07/11/18 07:29 Room Air 07/11/18 04:00 97.3 77 19 119/81 (94) 96 07/11/18 04:00 77 07/11/18 00:00 99 07/11/18 00:00 97.4 71 18 123/77 (92) 97 07/10/18 21:32 90 135/86 07/10/18 20:00 97.0 72 18 139/60 (86) 98 07/10/18 20:00 89 07/10/18 17:14 131/73 07/10/18 16:00 78 07/10/18 16:00 99.1 88 20 131/73 (92) 99 07/10/18 12:00 79 07/10/18 12:00 99.3 76 19 130/82 (98) 99 Intake and Output 07/10/18 07/11/18 19:00 07:00 Intake Total 610 ml 120 ml Balance 610 ml 120 ml Intake Oral 250 ml IV Total 360 ml 120 ml # Voids 2 # Bowel Movements 1 Laboratory Tests Test 07/10/18 11:20 07/10/18 12:17 07/10/18 13:17 07/11/18 05:20 Cortisol 9.8 UG/DL 16.9 UG/DL 18.4 UG/DL White Blood Count 8.9 K/UL (4.8-10.8) Red Blood Count 4.08 M/UL (4.20-5.40) L Hemoglobin 10.8 G/DL (12.0-16.0) L Hematocrit 31.9 % (37.0-47.0) L Mean Corpuscular Volume 78 FL (80-99) L Mean Corpuscular Hemoglobin 26.4 PG (27.0-31.0) L Mean Corpuscular Hemoglobin Concent 33.7 G/DL (32.0-36.0) Red Cell Distribution Width 12.0 % (11.6-14.8) Platelet Count 258 K/UL (150-450) Mean Platelet Volume 7.3 FL (6.5-10.1) Neutrophils (%) (Auto) 62.5 % (45.0-75.0) Lymphocytes (%) (Auto) 24.1 % (20.0-45.0) Monocytes (%) (Auto) 11.3 % (1.0-10.0) H Eosinophils (%) (Auto) 1.2 % (0.0-3.0) Basophils (%) (Auto) 1.0 % (0.0-2.0) Sodium Level 128 MMOL/L (136-145) L Potassium Level 3.8 MMOL/L (3.5-5.1) Chloride Level 98 MMOL/L (98-107) Carbon Dioxide Level 21 MMOL/L (21-32) Anion Gap 9 mmol/L (5-15) Blood Urea Nitrogen 5 mg/dL (7-18) L Creatinine 0.9 MG/DL (0.55-1.30) Estimat Glomerular Filtration Rate > 60 mL/min (>60) Glucose Level 80 MG/DL (74-106) Calcium Level 8.8 MG/DL (8.5-10.1) Phosphorus Level 4.4 MG/DL (2.5-4.9) Magnesium Level 1.4 MG/DL (1.8-2.4) L Total Bilirubin 0.5 MG/DL (0.2-1.0) Aspartate Amino Transf (AST/SGOT) 44 U/L (15-37) H Alanine Aminotransferase (ALT/SGPT) 34 U/L (12-78) Alkaline Phosphatase 72 U/L (46-116) Total Creatine Kinase 471 U/L (26-308) H Total Protein 6.2 G/DL (6.4-8.2) L Albumin 2.8 G/DL (3.4-5.0) L Globulin 3.4 g/dL Albumin/Globulin Ratio 0.8 (1.0-2.7) L Objective HEAD AND NECK: No JVD. LUNGS: Clear. CARDIOVASCULAR: Regular S1 and S2 with no gallop or murmur. ABDOMEN: Soft. EXTREMITIES: No pitting edema. Geovanni Navas MD Jul 11, 2018 09:17
[2018-07-11] MEDS ORDERED: NaCl 3% 500ml 500 ML IV SCH (10:00)
--- NOTE | 2018-07-11 10:14 | General Progress Note ---
Assessment/Plan Assessment/Plan Assessment/Plan # Coagulopathy -- she has a soley elevated ptt, will need to rule out factor deficiency v inhibitor --> PTT mixing study has been ordered --> no hx of significant liver disease # Pituitary mass v blood products on MRI -- imaging has been reviewed --> obtain tsh, prolactin level, growth hormone and 24-hour cortisol level pending --> consider endo or neuro eval as needed, appreciate their recs # Hyponatremia of unclear etiology, admit to ICU for hypertonic saline infusion and q4h BMP --> Seizure precautions, fall precautions. --> Appreciate Dr. Leonard recs # Hypokalemia, replaced with IV and oral KCl, continue to monitor K --> appreciate renal recs # Elevated troponin without EKG changes, doubt ACS, suspect demand ischemia. Continue ASA and metoprolol. --> appreciate cards recs # Cannabis and alcohol use, counseling given on the adverse effects of substance abuse. --> currently is off these Greatly appreciate consultation! Subjective Constitutional: Denies: no symptoms, chills, diaphoresis, fever, malaise, weakness, other HEENT: Denies: no symptoms, eye pain, blurred vision, tearing, double vision, ear pain, ear discharge, nose pain, nose congestion, throat pain, throat swelling, mouth pain, mouth swelling, other Cardiovascular: Denies: no symptoms, chest pain, edema, irregular heart rate, lightheadedness, palpitations, syncope, other Genitourinary: Denies: no symptoms, burning, discharge, frequency, flank pain, hematuria, incontinence, pain, urgency, other Neurologic/Psychiatric: Denies: no symptoms, anxiety, depressed, emotional problems, headache, numbness, paresthesia, pre-existing deficit, seizure, tingling, tremors, weakness, other Endocrine: Denies: no symptoms, excessive sweating, flushing, intolerance to cold, intolerance to heat, increased hunger, increased thirst, increased urine, unexplained weight gain, unexplained weight loss, other Hematologic/Lymphatic: Denies: no symptoms, anemia, easy bleeding, easy bruising, other Allergies: Coded Allergies: CODEINE (Verified Allergy, Unknown, 07/07/18) Subjective no fevers or chills or night sweats, no bleeding noted Objective Last 24 Hour Vital Signs Date Time Temp Pulse Resp B/P (MAP) Pulse Ox O2 Delivery O2 Flow Rate FiO2 07/11/18 08:45 144/82 07/11/18 08:45 78 144/82 07/11/18 08:45 78 144/82 07/11/18 08:44 144/82 07/11/18 08:00 97.2 78 18 144/82 (102) 97 07/11/18 07:29 Room Air 07/11/18 04:00 97.3 77 19 119/81 (94) 96 07/11/18 04:00 77 07/11/18 00:00 99 07/11/18 00:00 97.4 71 18 123/77 (92) 97 07/10/18 21:32 90 135/86 07/10/18 20:00 97.0 72 18 139/60 (86) 98 07/10/18 20:00 89 07/10/18 17:14 131/73 07/10/18 16:00 78 07/10/18 16:00 99.1 88 20 131/73 (92) 99 07/10/18 12:00 79 07/10/18 12:00 99.3 76 19 130/82 (98) 99 Intake and Output 07/10/18 07/11/18 19:00 07:00 Intake Total 610 ml 120 ml Balance 610 ml 120 ml Intake Oral 250 ml IV Total 360 ml 120 ml # Voids 2 # Bowel Movements 1 Laboratory Tests 07/10/18 11:20: Cortisol 9.8 07/10/18 12:17: Cortisol 16.9 07/10/18 13:17: Cortisol 18.4 07/11/18 05:20: White Blood Count 8.9, Red Blood Count 4.08L, Hemoglobin 10.8L, Hematocrit 31.9L , Mean Corpuscular Volume 78L, Mean Corpuscular Hemoglobin 26.4L, Mean Corpuscular Hemoglobin Concent 33.7, Red Cell Distribution Width 12.0, Platelet Count 258, Mean Platelet Volume 7.3, Neutrophils (%) (Auto) 62.5, Lymphocytes (% ) (Auto) 24.1, Monocytes (%) (Auto) 11.3H, Eosinophils (%) (Auto) 1.2, Basophils (%) (Auto) 1.0, Sodium Level 128L, Potassium Level 3.8, Chloride Level 98, Carbon Dioxide Level 21, Anion Gap 9, Blood Urea Nitrogen 5L, Creatinine 0.9, Estimat Glomerular Filtration Rate > 60, Glucose Level 80, Calcium Level 8.8, Phosphorus Level 4.4, Magnesium Level 1.4L, Total Bilirubin 0.5, Aspartate Amino Transf (AST/SGOT) 44H, Alanine Aminotransferase (ALT/SGPT) 34, Alkaline Phosphatase 72, Total Creatine Kinase 471H, Total Protein 6.2L, Albumin 2.8L, Globulin 3.4, Albumin/Globulin Ratio 0.8L Height (Feet): 5 Height (Inches): 6.00 Weight (Pounds): 154 General Appearance: no apparent distress EENT: TMs normal Neck: supple Cardiovascular: normal rate Respiratory/Chest: normal breath sounds Abdomen: non tender Extremities: normal inspection Edema: 1+ Leg (L), 1+ Leg (R) Edema: mild edema Neurologic: alert Skin: warm/dry Randy Payton MD Jul 11, 2018 10:13
--- NOTE | 2018-07-11 11:22 | General Progress Note ---
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 The majority of this demonstrates low T1 signal and high T2 signal. However, the right side demonstrates an irregularly-shaped focus of increased T1 and slightly decreased T2 signal, as well as a tiny focus of T2 signal void which is smaller than but is in the same area of the area of increased T1 signal. There is a thin rim of enhancement of the periphery, but most of the lesion is nonenhancing. The lesion elevates the optic chiasm. There is equivocal slight widening of the sella turcica Impression: Pituitary fossa mass, as described. 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 Main differential considerations are Rathke cleft cyst, craniopharyngioma - Patient requires transfer to [facility] for neurosurgery for evaluation of pituitary mass as there is evidence of elevation of the optic chiasm. I have spoke to Dr. Edgar, Neurosurgery who has agreed to be involved in patient's case at [facility]. CM is aware and working on transfer. - I have also spent 30 minutes discussing case with patient and family members - appreciate consult and reqs by Dr Durbin for pituitary mass #Severe life threatening hyponatremia 2/2 central addisons - positive cosyntropin test - patient started on prednisone -fluid management per nephrology and ICU - appreciate Nephrology and Traci consults #Hypothyroidism - followed by Dr Nazemi - patient to start synthroid tomorrow after one day treatment of prednisone for central francisco's; it is important not to start synthroid prior to prednisone treatment to prevent adrenal crisis Pulmonary HTN - appreciate Dr. Haley plata - serologies negative #Hypokalemia, improved -Continue to replace with KCl prn and monitor levels. #Elevated troponin with EKG changes, demand ischemia from severe hyponatremia -Cardiology following, appreciate reqs - medical management with acie, BB, statin and ASA #History of cannabis and alcohol use, no evidence of withdrawal -Continue to monitor #Psyche - appreciate Pscyhe reqs by Dr. Reynolds #Generalized weakness - PT OT #DVT proph - heparin SQ #Code status: FULL Subjective Date patient seen: Jul 11, 2018 Time patient seen: 09:00 Allergies: Coded Allergies: CODEINE (Verified Allergy, Unknown, 07/07/18) All Systems: reviewed and negative except above Subjective question patients comprehension and insight. She states she lives at home with her family including her mother. She admits to headache this morning as well as pain in the left ear. Otherwise no acute overnight events. Objective Last 24 Hour Vital Signs Date Time Temp Pulse Resp B/P (MAP) Pulse Ox O2 Delivery O2 Flow Rate FiO2 07/11/18 08:45 144/82 07/11/18 08:45 78 144/82 07/11/18 08:45 78 144/82 07/11/18 08:44 144/82 07/11/18 08:00 97.2 78 18 144/82 (102) 97 07/11/18 07:50 84 07/11/18 07:29 Room Air 07/11/18 04:00 97.3 77 19 119/81 (94) 96 07/11/18 04:00 77 07/11/18 00:00 99 07/11/18 00:00 97.4 71 18 123/77 (92) 97 07/10/18 21:32 90 135/86 07/10/18 20:00 97.0 72 18 139/60 (86) 98 07/10/18 20:00 89 07/10/18 17:14 131/73 07/10/18 16:00 78 07/10/18 16:00 99.1 88 20 131/73 (92) 99 07/10/18 12:00 79 07/10/18 12:00 99.3 76 19 130/82 (98) 99 Intake and Output 07/10/18 07/11/18 19:00 07:00 Intake Total 610 ml 120 ml Balance 610 ml 120 ml Intake Oral 250 ml IV Total 360 ml 120 ml # Voids 2 # Bowel Movements 1 Laboratory Tests 07/10/18 11:20: Cortisol 9.8 07/10/18 12:17: Cortisol 16.9 07/10/18 13:17: Cortisol 18.4 07/11/18 05:20: White Blood Count 8.9, Red Blood Count 4.08L, Hemoglobin 10.8L, Hematocrit 31.9L , Mean Corpuscular Volume 78L, Mean Corpuscular Hemoglobin 26.4L, Mean Corpuscular Hemoglobin Concent 33.7, Red Cell Distribution Width 12.0, Platelet Count 258, Mean Platelet Volume 7.3, Neutrophils (%) (Auto) 62.5, Lymphocytes (% ) (Auto) 24.1, Monocytes (%) (Auto) 11.3H, Eosinophils (%) (Auto) 1.2, Basophils (%) (Auto) 1.0, Sodium Level 128L, Potassium Level 3.8, Chloride Level 98, Carbon Dioxide Level 21, Anion Gap 9, Blood Urea Nitrogen 5L, Creatinine 0.9, Estimat Glomerular Filtration Rate > 60, Glucose Level 80, Calcium Level 8.8, Phosphorus Level 4.4, Magnesium Level 1.4L, Total Bilirubin 0.5, Aspartate Amino Transf (AST/SGOT) 44H, Alanine Aminotransferase (ALT/SGPT) 34, Alkaline Phosphatase 72, Total Creatine Kinase 471H, Total Protein 6.2L, Albumin 2.8L, Globulin 3.4, Albumin/Globulin Ratio 0.8L Height (Feet): 5 Height (Inches): 6.00 Weight (Pounds): 154 General Appearance: WD/WN, no apparent distress, alert EENT: PERRL/EOMI, normal ENT inspection, TMs normal, other - gross left visual field deficits on superior and middle temporal field Neck: non-tender, normal alignment, supple, normal inspection Cardiovascular: normal peripheral pulses, normal rate, regular rhythm, regularly irregular, no gallop/murmur Respiratory/Chest: chest wall non-tender, lungs clear, normal breath sounds, no respiratory distress, no accessory muscle use, respiratory distress Abdomen: normal bowel sounds, non tender, soft, no organomegaly, no mass, abnormal bowel sounds Extremities: normal range of motion, non-tender, other - 4/5 muscle strength in B/L LE Edema: no edema noted Arm (L), no edema noted Arm (R), no edema noted Leg (L), no edema noted Leg (R), no edema noted Pedal (L), no edema noted Pedal (R), no edema noted Generalized Neurologic: leather lacer II-XII grossly normal, alert, oriented x 3, responsive, normal mood/affect Skin: normal pigmentation, warm/dry Briseyda Henriquez DO Jul 11, 2018 11:22
--- NOTE | 2018-07-11 12:57 | General Progress Note ---
Assessment/Plan Problem List: (1) Cannabis abuse ICD Codes: F12.10 - Cannabis abuse, uncomplicated SNOMED: 85837806 Assessment/Plan the pt lacks capacity to make decisions Subjective Date patient seen: Jul 11, 2018 Neurologic/Psychiatric: Reports: anxiety, depressed Allergies: Coded Allergies: CODEINE (Verified Allergy, Unknown, 07/07/18) Subjective the pt is illogical and at times uncooperative. unable to understand the current medical condition she is in Objective Last 24 Hour Vital Signs Date Time Temp Pulse Resp B/P (MAP) Pulse Ox O2 Delivery O2 Flow Rate FiO2 07/11/18 08:45 144/82 07/11/18 08:45 78 144/82 07/11/18 08:45 78 144/82 07/11/18 08:44 144/82 07/11/18 08:00 97.2 78 18 144/82 (102) 97 07/11/18 07:50 84 07/11/18 07:29 Room Air 07/11/18 04:00 97.3 77 19 119/81 (94) 96 07/11/18 04:00 77 07/11/18 00:00 99 07/11/18 00:00 97.4 71 18 123/77 (92) 97 07/10/18 21:32 90 135/86 07/10/18 20:00 97.0 72 18 139/60 (86) 98 07/10/18 20:00 89 07/10/18 17:14 131/73 07/10/18 16:00 78 07/10/18 16:00 99.1 88 20 131/73 (92) 99 Intake and Output 07/10/18 07/11/18 19:00 07:00 Intake Total 610 ml 120 ml Balance 610 ml 120 ml Intake Oral 250 ml IV Total 360 ml 120 ml # Voids 2 # Bowel Movements 1 Laboratory Tests 07/10/18 13:17: Cortisol 18.4 07/11/18 05:20: White Blood Count 8.9, Red Blood Count 4.08L, Hemoglobin 10.8L, Hematocrit 31.9L , Mean Corpuscular Volume 78L, Mean Corpuscular Hemoglobin 26.4L, Mean Corpuscular Hemoglobin Concent 33.7, Red Cell Distribution Width 12.0, Platelet Count 258, Mean Platelet Volume 7.3, Neutrophils (%) (Auto) 62.5, Lymphocytes (% ) (Auto) 24.1, Monocytes (%) (Auto) 11.3H, Eosinophils (%) (Auto) 1.2, Basophils (%) (Auto) 1.0, Sodium Level 128L, Potassium Level 3.8, Chloride Level 98, Carbon Dioxide Level 21, Anion Gap 9, Blood Urea Nitrogen 5L, Creatinine 0.9, Estimat Glomerular Filtration Rate > 60, Glucose Level 80, Calcium Level 8.8, Phosphorus Level 4.4, Magnesium Level 1.4L, Total Bilirubin 0.5, Aspartate Amino Transf (AST/SGOT) 44H, Alanine Aminotransferase (ALT/SGPT) 34, Alkaline Phosphatase 72, Total Creatine Kinase 471H, Total Protein 6.2L, Albumin 2.8L, Globulin 3.4, Albumin/Globulin Ratio 0.8L Height (Feet): 5 Height (Inches): 6.00 Weight (Pounds): 154 General Appearance: no apparent distress, alert Neurologic: responsive, depressed affect Chandler Reynolds MD Jul 11, 2018 12:57
--- NOTE | 2018-07-11 13:20 | Nephrology Progress Note ---
Assessment/Plan Problem List: (1) Hyponatremia (2) Hypothyroid (3) NSTEMI (non-ST elevated myocardial infarction) (4) Hypokalemia (5) Pituitary mass Assessment Severe Hyponatremia : ? Depletional ? SIADH HypoKalemia Low MCV elevated troponin h/o HypoThyroidism Plan 3% Saline and lasix Endo eval K IV Mag IV Nitro ,asa, betablocker per orders higgins out transfer to higher level care in process Subjective ROS Limited/Unobtainable: No Constitutional: Reports: malaise Objective Objective Last 24 Hour Vital Signs Date Time Temp Pulse Resp B/P (MAP) Pulse Ox O2 Delivery O2 Flow Rate FiO2 07/11/18 08:45 144/82 07/11/18 08:45 78 144/82 07/11/18 08:45 78 144/82 07/11/18 08:44 144/82 07/11/18 08:00 97.2 78 18 144/82 (102) 97 07/11/18 07:50 84 07/11/18 07:29 Room Air 07/11/18 04:00 97.3 77 19 119/81 (94) 96 07/11/18 04:00 77 07/11/18 00:00 99 07/11/18 00:00 97.4 71 18 123/77 (92) 97 07/10/18 21:32 90 135/86 07/10/18 20:00 97.0 72 18 139/60 (86) 98 07/10/18 20:00 89 07/10/18 17:14 131/73 07/10/18 16:00 78 07/10/18 16:00 99.1 88 20 131/73 (92) 99 Intake and Output 07/10/18 07/11/18 19:00 07:00 Intake Total 610 ml 120 ml Balance 610 ml 120 ml Intake Oral 250 ml IV Total 360 ml 120 ml # Voids 2 # Bowel Movements 1 Laboratory Tests 07/10/18 13:17: Cortisol 18.4 07/11/18 05:20: White Blood Count 8.9, Red Blood Count 4.08L, Hemoglobin 10.8L, Hematocrit 31.9L , Mean Corpuscular Volume 78L, Mean Corpuscular Hemoglobin 26.4L, Mean Corpuscular Hemoglobin Concent 33.7, Red Cell Distribution Width 12.0, Platelet Count 258, Mean Platelet Volume 7.3, Neutrophils (%) (Auto) 62.5, Lymphocytes (% ) (Auto) 24.1, Monocytes (%) (Auto) 11.3H, Eosinophils (%) (Auto) 1.2, Basophils (%) (Auto) 1.0, Sodium Level 128L, Potassium Level 3.8, Chloride Level 98, Carbon Dioxide Level 21, Anion Gap 9, Blood Urea Nitrogen 5L, Creatinine 0.9, Estimat Glomerular Filtration Rate > 60, Glucose Level 80, Calcium Level 8.8, Phosphorus Level 4.4, Magnesium Level 1.4L, Total Bilirubin 0.5, Aspartate Amino Transf (AST/SGOT) 44H, Alanine Aminotransferase (ALT/SGPT) 34, Alkaline Phosphatase 72, Total Creatine Kinase 471H, Total Protein 6.2L, Albumin 2.8L, Globulin 3.4, Albumin/Globulin Ratio 0.8L Height (Feet): 5 Height (Inches): 6.00 Weight (Pounds): 154 General Appearance: no apparent distress Objective no change Hesham Leonard MD Jul 11, 2018 13:20
--- NOTE | 2018-07-11 15:27 | Pulmonology Progress Note ---
Assessment/Plan Problems: (1) Pituitary mass (2) Hyponatremia (3) Hypothyroid (4) Pulmonary hypertension (5) Adrenal insufficiency Assessment/Plan Transfer to [facility] for NSG eval F/U ENDO and NEURO recs PH W/U: LFT's reviewed, HIV negative, serologies pending, VQ neg Aspiration precautions DVT Px: Hep SQ F/U cards recs Subjective Allergies: Coded Allergies: CODEINE (Verified Allergy, Unknown, 07/07/18) Subjective Na 128, AFVSS, stable on RA Pituitary MRI noted + cosynotropin stim No cough, no SOB, no FC, no CP Plan to transfer to [facility] for NSG eval Objective Last 24 Hour Vital Signs Date Time Temp Pulse Resp B/P (MAP) Pulse Ox O2 Delivery O2 Flow Rate FiO2 07/11/18 12:00 98.9 76 18 120/103 (109) 98 07/11/18 08:45 144/82 07/11/18 08:45 78 144/82 07/11/18 08:45 78 144/82 07/11/18 08:44 144/82 07/11/18 08:00 97.2 78 18 144/82 (102) 97 07/11/18 07:50 84 07/11/18 07:29 Room Air 07/11/18 04:00 97.3 77 19 119/81 (94) 96 07/11/18 04:00 77 07/11/18 00:00 99 07/11/18 00:00 97.4 71 18 123/77 (92) 97 07/10/18 21:32 90 135/86 07/10/18 20:00 97.0 72 18 139/60 (86) 98 07/10/18 20:00 89 07/10/18 17:14 131/73 07/10/18 16:00 78 07/10/18 16:00 99.1 88 20 131/73 (92) 99 Intake and Output 07/10/18 07/11/18 19:00 07:00 Intake Total 610 ml 120 ml Balance 610 ml 120 ml Intake Oral 250 ml IV Total 360 ml 120 ml # Voids 2 # Bowel Movements 1 General Appearance: WD/WN, no acute distress HEENT: normocephalic, atraumatic, anicteric, mucous membranes moist Respiratory/Chest: chest wall non-tender, lungs clear, normal breath sounds, no respiratory distress Cardiovascular: normal peripheral pulses, normal rate, regular rhythm Abdomen: normal bowel sounds, soft, non tender, no organomegaly, non distended , no mass Extremities: no cyanosis, no clubbing, no edema Laboratory Tests 07/11/18 05:20: White Blood Count 8.9, Red Blood Count 4.08L, Hemoglobin 10.8L, Hematocrit 31.9L , Mean Corpuscular Volume 78L, Mean Corpuscular Hemoglobin 26.4L, Mean Corpuscular Hemoglobin Concent 33.7, Red Cell Distribution Width 12.0, Platelet Count 258, Mean Platelet Volume 7.3, Neutrophils (%) (Auto) 62.5, Lymphocytes (% ) (Auto) 24.1, Monocytes (%) (Auto) 11.3H, Eosinophils (%) (Auto) 1.2, Basophils (%) (Auto) 1.0, Sodium Level 128L, Potassium Level 3.8, Chloride Level 98, Carbon Dioxide Level 21, Anion Gap 9, Blood Urea Nitrogen 5L, Creatinine 0.9, Estimat Glomerular Filtration Rate > 60, Glucose Level 80, Calcium Level 8.8, Phosphorus Level 4.4, Magnesium Level 1.4L, Total Bilirubin 0.5, Aspartate Amino Transf (AST/SGOT) 44H, Alanine Aminotransferase (ALT/SGPT) 34, Alkaline Phosphatase 72, Total Creatine Kinase 471H, Total Protein 6.2L, Albumin 2.8L, Globulin 3.4, Albumin/Globulin Ratio 0.8L Current Medications Medications (Trade) Dose Ordered Sig/Richard Route PRN Reason Start Time Stop Time Status Last Admin Dose Admin Acetaminophen (Tylenol) 650 mg Q6H PRN ORAL Mild Pain/Temp > 100.5 07/08/18 17:12 08/05/18 17:11 07/11/18 00:41 Amlodipine Besylate (Norvasc) 2.5 mg DAILY ORAL 07/09/18 09:00 08/08/18 08:59 07/11/18 08:45 Aspirin (ASA) 162 mg DAILY ORAL 07/09/18 09:00 08/06/18 08:59 07/11/18 08:44 Dextrose (Dextrose 50%) 25 ml Q30M PRN IV Hypoglycemia 07/08/18 17:11 08/05/18 17:10 Dextrose (Dextrose 50%) 50 ml Q30M PRN IV Hypoglycemia 07/08/18 17:11 08/05/18 17:10 Furosemide (Lasix) 10 mg EVERY 6 HOURS IV 07/10/18 12:00 08/09/18 11:59 07/11/18 11:24 Heparin Sodium (Porcine) (Heparin 5000 units/ml) 5,000 units EVERY 12 HOURS SUBQ 07/08/18 21:00 08/05/18 20:59 07/09/18 09:30 Levothyroxine Sodium (Synthroid) 75 mcg DAILY@0630 ORAL 07/12/18 06:30 08/11/18 06:29 Lisinopril (Zestril) 10 mg BID ORAL 07/09/18 18:00 08/07/18 08:59 07/11/18 08:44 Magnesium Oxide (Mag-Ox 400mg) 400 mg THREE TIMES A DAY ORAL 07/09/18 13:00 08/08/18 12:59 07/11/18 12:44 Metoprolol Tartrate (Lopressor) 50 mg Q12HR ORAL 07/08/18 21:00 08/05/18 20:59 07/11/18 08:45 Nitroglycerin (Ntg) 1 patch DAILY TDERMAL 07/09/18 09:00 08/05/18 12:59 07/11/18 08:45 Potassium Chloride (K-Dur) 40 meq TWICE A DAY ORAL 07/09/18 18:00 08/08/18 17:59 07/11/18 08:44 Prednisone (predniSONE) 10 mg DAILY ORAL 07/11/18 09:00 08/10/18 08:59 07/11/18 08:45 Sennosides (Senokot) 2 tab DAILY PRN ORAL Constipation 07/09/18 01:30 08/08/18 01:29 07/09/18 09:28 Sodium Chloride 500 ml @ 30 mls/hr ONCE IV 07/11/18 10:00 07/11/18 23:59 07/11/18 10:44 Richar De Leon MD Jul 11, 2018 15:27
--- NOTE | 2018-07-11 18:00 | Consultation ---
DATE OF CONSULTATION: 07/11/2018 ENDOCRINOLOGY CONSULTATION CONSULTING PHYSICIAN: Sebastien Aviles M.D. REFERRING PHYSICIAN: Dr. Joann Bains. REASON FOR CONSULTATION: Pituitary mass. HISTORY OF PRESENT ILLNESS: The patient is a 62-year-old female without any significant past medical history, not seen by any doctors for a long time, who presented to the hospital with chest pain and generalized weakness, worsening over the past week, and decreased vision in the right eye. She was complaining of some analgesic headache. On presentation, she was noted to have sodium of 108 with potassium of 2.6 and chloride of 71. The patient had an MRI obtained, which was suggestive of pituitary mass yesterday, after discussion with the hospitalist I asked for cortisol stimulation test as well as pituitary imaging. The pituitary imaging is done, which reveals a 1.8 cm cystic pituitary mass extending to the suprasellar region and putting pressure on the optic chiasm. The patient's pituitary panel has been ordered. The prolactin is normal. IGF-1 is pending. ACTH is pending. Serum cortisol stimulation test was performed, which varies from 9.8 to 18.4. The patient has a normal TSH of 0.5 with a low free T4 of 0.5. PAST MEDICAL HISTORY: None. PAST SURGICAL HISTORY: None. FAMILY HISTORY: Noncontributory. MEDICATIONS: As an outpatient none. SOCIAL HISTORY: No smoking, alcohol, or drug use. REVIEW OF SYSTEMS: As per history of present illness. LABORATORY VALUES: Discussed in the history of present illness. PHYSICAL EXAMINATION: VITAL SIGNS: Temperature is 97.3, pulse of 77, blood pressure is 119/81, and respiratory rate of 19. HEENT: Pupils are equal and reactive to light. Decreased peripheral vision on the right side. NECK: No JVD. No thyromegaly. LUNGS: Clear. HEART: Regular rate and rhythm. ABDOMEN: Positive bowel sounds. EXTREMITIES: Lower extremity, no clubbing, cyanosis, or edema. DIAGNOSES: 1. 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 2. Central adrenal insufficiency. 3. Central hypothyroidism. 4. Severe hyponatremia on presentation PLAN: 1. Start the patient on prednisone 10 milligram daily. 2. Start levothyroxine 75 microgram daily tomorrow day after the prednisone has been started. 3. The patient is a candidate for transphenoidal resection. 4. The patient needs to be seen by Neurosurgery. Please consult the neurosurgeon. I will follow the patient closely during hospital stay. Thank you, Dr. Bains, for the courtesy of this consultation. Sebastien Aviles M.D. DR: GEOFFREY JOB#: [id number] CC: SCOUT
[2018-07-12] VITALS: BP_SYST 144; BP_SYST 147; BP_DIAS 75; BP_DIAS 82
[2018-07-12 04:00] VITALS: BP 147/82
[2018-07-12 08:00] VITALS: BP 147/86
[2018-07-12] MEDS: Aspirin Baby 81mg ORAL SCH (08:42)
[2018-07-12] MEDS: Magnesium Oxide 400mg tab ORAL SCH (08:42)
[2018-07-12] MEDS: Nitroglycerin Patch 0.4mg TDERMAL SCH (08:42)
[2018-07-12] MEDS: Lisinopril 10mg tab ORAL SCH (08:42)
[2018-07-12 08:43] VITALS: BP 147/86
[2018-07-12] MEDS: Metoprolol Tartrate 50mg tab ORAL SCH (08:43)
[2018-07-12] MEDS: Heparin 5000 units/ml inj SUBQ SCH (08:45)
--- NOTE | 2018-07-12 09:11 | General Progress Note ---
Assessment/Plan Assessment/Plan # Coagulopathy -- she has a solely elevated ptt, will need to rule out factor deficiency v inhibitor --> PTT mixing study has been ordered --> no hx of significant liver disease # Pituitary mass v blood products on MRI -- imaging has been reviewed --> obtain tsh, prolactin level, growth hormone and 24-hour cortisol level pending --> consider neurosurg eval at [facility], pending transfer # Hyponatremia of unclear etiology, admit to ICU for hypertonic saline infusion and q4h BMP --> Seizure precautions, fall precautions. --> Appreciate Dr. Leonard recs # Hypokalemia, replaced with IV and oral KCl, continue to monitor K --> appreciate renal recs # Elevated troponin without EKG changes, doubt ACS, suspect demand ischemia. Continue ASA and metoprolol. --> appreciate cards recs # Cannabis and alcohol use, counseling given on the adverse effects of substance abuse. --> currently is off these Greatly appreciate consultation! Subjective HEENT: Denies: no symptoms, eye pain, blurred vision, tearing, double vision, ear pain, ear discharge, nose pain, nose congestion, throat pain, throat swelling, mouth pain, mouth swelling, other Cardiovascular: Denies: no symptoms, chest pain, edema, irregular heart rate, lightheadedness, palpitations, syncope, other Respiratory: Denies: no symptoms, cough, orthopnea, shortness of breath, SOB with excertion, SOB at rest, sputum, stridor, wheezing, other Genitourinary: Denies: no symptoms, burning, discharge, frequency, flank pain, hematuria, incontinence, pain, urgency, other Neurologic/Psychiatric: Denies: no symptoms, anxiety, depressed, emotional problems, headache, numbness, paresthesia, pre-existing deficit, seizure, tingling, tremors, weakness, other Endocrine: Denies: no symptoms, excessive sweating, flushing, intolerance to cold, intolerance to heat, increased hunger, increased thirst, increased urine, unexplained weight gain, unexplained weight loss, other Hematologic/Lymphatic: Denies: no symptoms, anemia, easy bleeding, easy bruising, other Allergies: Coded Allergies: CODEINE (Verified Allergy, Unknown, 07/07/18) Subjective no fevers or chills or night sweats, no bleeding reported Objective Last 24 Hour Vital Signs Date Time Temp Pulse Resp B/P (MAP) Pulse Ox O2 Delivery O2 Flow Rate FiO2 07/12/18 08:43 72 147/86 07/12/18 08:42 147/86 07/12/18 08:42 147/86 07/12/18 08:42 72 147/86 07/12/18 08:00 97.6 72 18 147/86 (106) 98 07/12/18 04:00 98.9 65 19 147/82 (103) 97 07/12/18 04:00 67 07/12/18 00:00 54 07/12/18 00:00 98.0 63 19 144/82 (102) 99 07/11/18 21:01 78 143/86 07/11/18 21:00 Room Air 07/11/18 20:00 76 07/11/18 20:00 97.8 78 19 143/86 (105) 98 07/11/18 16:00 97.9 74 18 149/94 (112) 99 07/11/18 15:44 71 07/11/18 12:00 98.9 76 18 120/103 (109) 98 07/11/18 11:25 69 Intake and Output 07/11/18 07/12/18 18:59 06:59 Intake Total 570 ml Output Total 550 ml Balance 20 ml Intake Oral 570 ml Output Urine Total 550 ml # Voids 1 3 # Bowel Movements 2 Laboratory Tests 07/11/18 13:00: Urine Cortisol 24 Hour [Pending], Urine Free Cortisol ug/L [Pending] Height (Feet): 5 Height (Inches): 6.00 Weight (Pounds): 152 General Appearance: alert EENT: pharynx normal Neck: normal alignment Cardiovascular: regular rhythm Respiratory/Chest: normal breath sounds Abdomen: soft Extremities: normal range of motion Edema: 1+ Leg (L), 1+ Leg (R) Edema: mild edema Neurologic: alert Randy Payton MD Jul 12, 2018 09:11
[2018-07-12 09:21] LABS: BASOPHILS % (AUTO) 0.6 % (0.0-2.0); EOSINOPHILS % (AUTO) 0.2 % (0.0-3.0); HEMOGLOBIN 11.5 G/DL (12.0-16.0); LYMPHOCYTES % (AUTO) 23.1 % (20.0-45.0); MEAN CORPUSCULAR VOLUME 78 FL (80-99); MONOCYTES % (AUTO) 7.2 % (1.0-10.0); PLATELET COUNT 352 K/UL (150-450); RED BLOOD COUNT 4.37 M/UL (4.20-5.40)
[2018-07-12 09:30] LABS: ANION GAP 7 mmol/L (5-15); BLOOD UREA NITROGEN 6 mg/dL (7-18); CALCIUM 9.3 MG/DL (8.5-10.1); CARBON DIOXIDE 25 MMOL/L (21-32); CHLORIDE 99 MMOL/L (98-107); CREATININE 0.9 MG/DL (0.55-1.30); POTASSIUM 3.8 MMOL/L (3.5-5.1); SODIUM 131 MMOL/L (136-145)
--- NOTE | 2018-07-12 10:32 | General Progress Note ---
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 The majority of this demonstrates low T1 signal and high T2 signal. However, the right side demonstrates an irregularly-shaped focus of increased T1 and slightly decreased T2 signal, as well as a tiny focus of T2 signal void which is smaller than but is in the same area of the area of increased T1 signal. There is a thin rim of enhancement of the periphery, but most of the lesion is nonenhancing. The lesion elevates the optic chiasm. There is equivocal slight widening of the sella turcica Impression: Pituitary fossa mass, as described. 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 De Leon reqs - serologies negative #Hypokalemia, improved -Continue to replace with KCl prn and monitor levels. #Elevated troponin with EKG changes, demand ischemia from severe hyponatremia -Cardiology following, appreciate reqs - medical management with acie, BB, statin and ASA #History of cannabis and alcohol use, no evidence of withdrawal -Continue to monitor #Psyche - appreciate Pscyhe reqs by Dr. Reynolds #Generalized weakness - PT OT #DVT proph - heparin SQ #Code status: FULL Subjective Date patient seen: Jul 12, 2018 ROS Limited/Unobtainable: No Allergies: Coded Allergies: CODEINE (Verified Allergy, Unknown, 07/07/18) Subjective patient has mild headache this morning and continues to complain of muscle aches. No fevers, chills, n, v, d. Objective Last 24 Hour Vital Signs Date Time Temp Pulse Resp B/P (MAP) Pulse Ox O2 Delivery O2 Flow Rate FiO2 07/12/18 09:00 Room Air 07/12/18 08:43 72 147/86 07/12/18 08:42 147/86 07/12/18 08:42 147/86 07/12/18 08:42 72 147/86 07/12/18 08:00 81 07/12/18 08:00 97.6 72 18 147/86 (106) 98 07/12/18 04:00 98.9 65 19 147/82 (103) 97 07/12/18 04:00 67 07/12/18 00:00 54 07/12/18 00:00 98.0 63 19 144/82 (102) 99 07/11/18 21:01 78 143/86 07/11/18 21:00 Room Air 07/11/18 20:00 76 07/11/18 20:00 97.8 78 19 143/86 (105) 98 07/11/18 16:00 97.9 74 18 149/94 (112) 99 07/11/18 15:44 71 07/11/18 12:00 98.9 76 18 120/103 (109) 98 07/11/18 11:25 69 Intake and Output 07/11/18 07/12/18 19:00 07:00 Intake Total 570 ml Output Total 550 ml Balance 20 ml Intake Oral 570 ml Output Urine Total 550 ml # Voids 1 3 # Bowel Movements 2 Laboratory Tests 07/11/18 13:00: Urine Cortisol 24 Hour [Pending], Urine Free Cortisol ug/L [Pending] 07/12/18 09:05: White Blood Count 9.0, Red Blood Count 4.37, Hemoglobin 11.5L, Hematocrit 34.0L , Mean Corpuscular Volume 78L, Mean Corpuscular Hemoglobin 26.3L, Mean Corpuscular Hemoglobin Concent 33.8, Red Cell Distribution Width 12.0, Platelet Count 352, Mean Platelet Volume 7.3, Neutrophils (%) (Auto) 69.0, Lymphocytes (% ) (Auto) 23.1, Monocytes (%) (Auto) 7.2, Eosinophils (%) (Auto) 0.2, Basophils ( %) (Auto) 0.6, Sodium Level 131L, Potassium Level 3.8, Chloride Level 99, Carbon Dioxide Level 25, Anion Gap 7, Blood Urea Nitrogen 6L, Creatinine 0.9, Estimat Glomerular Filtration Rate > 60, Glucose Level 165H, Calcium Level 9.3 Height (Feet): 5 Height (Inches): 6.00 Weight (Pounds): 152 General Appearance: WD/WN, no apparent distress, alert, lethargic, confused EENT: PERRL/EOMI, normal ENT inspection, TMs normal Neck: non-tender, normal alignment, supple, normal inspection Cardiovascular: normal peripheral pulses, normal rate, regular rhythm, regularly irregular, no gallop/murmur Respiratory/Chest: chest wall non-tender, lungs clear, normal breath sounds, no respiratory distress, no accessory muscle use Abdomen: normal bowel sounds, non tender, soft, no organomegaly, no mass Extremities: normal range of motion, non-tender Edema: no edema noted Arm (L), no edema noted Arm (R), no edema noted Leg (L), no edema noted Leg (R), no edema noted Pedal (L), no edema noted Pedal (R), no edema noted Generalized Neurologic: final operations technician II-XII grossly normal, oriented x 3, responsive Skin: normal pigmentation, warm/dry Briseyda Henriquez DO Jul 12, 2018 10:32
[2018-07-12] MEDS ORDERED: LEVOTHYROXINE75 MCG ORAL (10:38)
[2018-07-12] MEDS ORDERED: METOPROLOL TART50 MG ORAL (10:38)
[2018-07-12] MEDS ORDERED: NORVASC5 MG ORAL (10:38)
[2018-07-12] MEDS ORDERED: ASPIR 8181 MG ORAL (10:38)
[2018-07-12] MEDS ORDERED: LISINOPRIL10 MG ORAL (10:38)
[2018-07-12] MEDS ORDERED: PREDNISONE5 MG ORAL (10:38)
[2018-07-12] MEDS ORDERED: NTG1 PATCH TDERMAL (10:38)
--- NOTE | 2018-07-12 10:44 | Discharge Instructions ---
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 It is crucial that you follow up with neurosurgery at [facility] for evaluation of the mass. car rental agency manager will set up an appointment for you, please call neurosurgery clinic at this number to follow up: [phone] You will also need to follow up with an risk management intern Dr. Aviles [phone] [address] follow up with Dr. Sanjeev Lang as your new primary doctor. His office number is [phone] For Congestive Heart Failure Reminder Report to your physician any weight gain of 5 pounds or more in one week. Briseyda Henriquez DO Jul 12, 2018 10:44
--- NOTE | 2018-07-12 11:06 | Discharge Summary ---
Discharge Summary Hospital Course Date of Admission Jul 06, 2018 at 08:37 Date of Discharge 07/12/18 Admitting Diagnosis Chest Pain/Weakness HPI Tara Villeda is a 62 year old female who was admitted on Jul 06, 2018 at 08:37 for Chest Pain,Weakness Consultations Endocrinology: Dr. Aviles Nephrology: Dr. Leonard Cardiology: Dr. Navas Psyche: Dr. Reynolds Critical Care: Dr. De Leon Hematology: Dr. Payton Hospital Course 62 yo F with no significant medical history, and has not follow up with a doctor in a long time, initially presents for chest pain and weakness. Patient was found to have sever hyponatremia of 108 and admitted to ICU with hypertonic saline and fluid restriction. Patients serum osmol was 141 with low urine osmol as well. Initial working diagnosis for patients hyponatremia was polydypsia and patient's hyponatremia slowy began to correct appropriately to 128. Patient had an MRI brain done that showed a pituitary mass at which time endocrinology was consulted. Endocrinology recommended a pituitary MRI which showed 1.8 cm mass with some elevation of the optic chiasm. Pituitary hormone studies also showed normal PRL but inappropriately normal values for LH and FSH in an elderly woman who should have elevated levels, with low TSH. Workup subsequently involved cosyntropin test which was positive for central francisco's disease. Patient was started on prednisone 10 mg daily and levothyroxine 25 mcg AM one day after prednisone started. In the interim patient was discontinued from the hypertonic saline and sodium improved to 131, a level safe for discharge. In regards to pituitary mass, transfer to [facility] was requested for neurosurgery evaluation. Patient was denied transfer. Cased was then discussed with Neurosurgery at [facility] who recommended outpatient follow up in clinic. In regards to patient's chest pain, she has elevated troponins (levels of 0.06 downtrended to 0.046) and ST depression on EKG. Cardiology was consulted and patient was started on ACS protocol with medical management and no further events on telemetry. Cardiology suspected the troponins may be secondary to severe hyponatremia. On day of discharge patient was stable with improvement of sodium to 131, no chest pain, and threatening to leave AMA. Patient discharged home with instructions to follow up with respective physicians. Throughout hospital stay information was relayed to family including patient's mother Katlin and siblings. Discharge medications: Levothyroxine 25 mcg PO AM Prednisone 10 mg PO daily Nitro patch q 24 Metoprolol 50 BID Norvasc 5 mg PO daily Lisinopril 10 mg Po daily Asa 81 mg PO Daily Discharge Discharge Disposition Patient was discharged to Home (01) Discharge Instructions Discharge Instructions Call MD/Return to Hospital if: you feel worsening of your vision, extreme weakness, worsening headache Activity: resume normal activities Briseyda Henriquez DO Jul 12, 2018 11:06
[2018-07-12] MEDS ORDERED: NS 275ml ONE (12:24)
[2018-07-12] MEDS ORDERED: Tubing IV Secondary IV ONE (12:24)
--- NOTE | 2018-07-12 12:55 | Nephrology Progress Note ---
Assessment/Plan Problem List: (1) Hyponatremia (2) Hypothyroid (3) NSTEMI (non-ST elevated myocardial infarction) (4) Hypokalemia (5) Pituitary mass Assessment Severe Hyponatremia : ? Depletional ? SIADH HypoKalemia Low MCV elevated troponin h/o HypoThyroidism Plan patient refuses higher level care- safe to Dc and follow up with her PMD Subjective ROS Limited/Unobtainable: No Interval Events/Complaints seen at 10 am Objective Objective Last 24 Hour Vital Signs Date Time Temp Pulse Resp B/P (MAP) Pulse Ox O2 Delivery O2 Flow Rate FiO2 07/12/18 09:00 Room Air 07/12/18 08:43 72 147/86 07/12/18 08:42 147/86 07/12/18 08:42 147/86 07/12/18 08:42 72 147/86 07/12/18 08:00 81 07/12/18 08:00 97.6 72 18 147/86 (106) 98 07/12/18 04:00 98.9 65 19 147/82 (103) 97 07/12/18 04:00 67 07/12/18 00:00 54 07/12/18 00:00 98.0 63 19 144/82 (102) 99 07/11/18 21:01 78 143/86 07/11/18 21:00 Room Air 07/11/18 20:00 76 07/11/18 20:00 97.8 78 19 143/86 (105) 98 07/11/18 16:00 97.9 74 18 149/94 (112) 99 07/11/18 15:44 71 Intake and Output 07/11/18 07/12/18 19:00 07:00 Intake Total 570 ml Output Total 550 ml Balance 20 ml Intake Oral 570 ml Output Urine Total 550 ml # Voids 1 3 # Bowel Movements 2 Laboratory Tests 07/11/18 13:00: Urine Cortisol 24 Hour [Pending], Urine Free Cortisol ug/L [Pending] 07/12/18 09:05: White Blood Count 9.0, Red Blood Count 4.37, Hemoglobin 11.5L, Hematocrit 34.0L , Mean Corpuscular Volume 78L, Mean Corpuscular Hemoglobin 26.3L, Mean Corpuscular Hemoglobin Concent 33.8, Red Cell Distribution Width 12.0, Platelet Count 352, Mean Platelet Volume 7.3, Neutrophils (%) (Auto) 69.0, Lymphocytes (% ) (Auto) 23.1, Monocytes (%) (Auto) 7.2, Eosinophils (%) (Auto) 0.2, Basophils ( %) (Auto) 0.6, Sodium Level 131L, Potassium Level 3.8, Chloride Level 99, Carbon Dioxide Level 25, Anion Gap 7, Blood Urea Nitrogen 6L, Creatinine 0.9, Estimat Glomerular Filtration Rate > 60, Glucose Level 165H, Calcium Level 9.3 Height (Feet): 5 Height (Inches): 6.00 Weight (Pounds): 152 General Appearance: no apparent distress Objective no change Hesham Leonard MD Jul 12, 2018 12:55
[2018-07-12] MEDS ORDERED: Magnesium Oxide 400mg tab ORAL SCH (13:00)
--- NOTE | 2018-07-12 20:46 | General Progress Note ---
Assessment/Plan Problem List: (1) Cannabis abuse ICD Codes: F12.10 - Cannabis abuse, uncomplicated SNOMED: 20731280 Assessment/Plan the pt lacks capacity to make decisions Subjective Neurologic/Psychiatric: Reports: anxiety Allergies: Coded Allergies: CODEINE (Verified Allergy, Unknown, 07/07/18) Subjective the pt is illogical and at times uncooperative. unable to understand the current medical condition she is in Objective Last 24 Hour Vital Signs Date Time Temp Pulse Resp B/P (MAP) Pulse Ox O2 Delivery O2 Flow Rate FiO2 07/12/18 09:00 Room Air 07/12/18 08:43 72 147/86 07/12/18 08:42 147/86 07/12/18 08:42 147/86 07/12/18 08:42 72 147/86 07/12/18 08:00 81 07/12/18 08:00 97.6 72 18 147/86 (106) 98 07/12/18 04:00 98.9 65 19 147/82 (103) 97 07/12/18 04:00 67 07/12/18 00:00 54 07/12/18 00:00 98.0 63 19 144/82 (102) 99 07/11/18 21:01 78 143/86 07/11/18 21:00 Room Air Intake and Output 07/11/18 07/12/18 19:00 07:00 Intake Total 570 ml Output Total 550 ml Balance 20 ml Intake Oral 570 ml Output Urine Total 550 ml # Voids 1 3 # Bowel Movements 2 Laboratory Tests 07/12/18 09:05: White Blood Count 9.0, Red Blood Count 4.37, Hemoglobin 11.5L, Hematocrit 34.0L , Mean Corpuscular Volume 78L, Mean Corpuscular Hemoglobin 26.3L, Mean Corpuscular Hemoglobin Concent 33.8, Red Cell Distribution Width 12.0, Platelet Count 352, Mean Platelet Volume 7.3, Neutrophils (%) (Auto) 69.0, Lymphocytes (% ) (Auto) 23.1, Monocytes (%) (Auto) 7.2, Eosinophils (%) (Auto) 0.2, Basophils ( %) (Auto) 0.6, Sodium Level 131L, Potassium Level 3.8, Chloride Level 99, Carbon Dioxide Level 25, Anion Gap 7, Blood Urea Nitrogen 6L, Creatinine 0.9, Estimat Glomerular Filtration Rate > 60, Glucose Level 165H, Calcium Level 9.3 Height (Feet): 5 Height (Inches): 6.00 Weight (Pounds): 152 Chandler Reynolds MD Jul 12, 2018 20:46
[2018-07-13 16:15] LABS: APTT 1:1 NORMAL PLASMA 30.7 sec (22.9-30.2); APTT 1:1NP MIX 60M INCUBATION 31.4 sec (22.9-30.2); APTT 1:1NP MIX CONTROL 31.9 sec (22.9-30.2)
== END 2018-07-12 12:25 | disposition home or self-care (01) | DRG 426 ==
LOC: EMR 07:22 → ICU 08:37 → EDBEDREQ 09:08 → EDBEDREQSVC 09:09 → EDBEDREQ 09:37 → 2E 07-08 16:35
DX: E87.1 Hypo-osmolality and hyponatremia (principal); I21.4 Non-ST elevation (NSTEMI) myocardial infarction; I27.20 Pulmonary hypertension, unspecified; E27.1 Primary adrenocortical insufficiency; E03.9 Hypothyroidism, unspecified; F12.10 Cannabis abuse, uncomplicated; R07.9 Chest pain, unspecified; E87.6 Hypokalemia; Z88.6 Allergy status to analgesic agent; D35.2 Benign neoplasm of pituitary gland; S70.01XA Contusion of right hip, initial encounter; W19.XXXA Unspecified fall, initial encounter; R63.1 Polydipsia
CPT/HCPCS: 36415; 70551; 70553; 71045; 78579; 78580; 80048; 80053; 80061; 80076; 80307; 80329; 81003; 82024; 82530; 82533; 82550; 82607; 82728; 82746; 82962; 82977; 83001; 83002; 83003; 83036; 83540; 83550; 83605; 83690; 83735; 83880; 83930; 83935; 84100; 84146; 84300; 84305; 84439; 84443; 84481; 84484; 84550; 85025; 85379; 85610; 85651; 85730; 86021; 86039; 86140; 86200; 86431; 86703; 86705; 86709; 86803; 87040; 87081; 87340; 93005; 93306; 96361; 96374; 99291; A9503; A9585; J0834; J8499